=== PATIENT | female | born 1990 | race Caucasian/White ===

== ENCOUNTER → 2018-03-11 16:40 | Outpatient (CLI) | payer OTHER, SELFPAY ==
[2018-03-11 18:01] LABS: Follicle Stimulating Hormone 50.9 mIU/mL; Prolactin 22.1 ng/mL
[2018-03-11 18:02] LABS: Pregnancy, Serum, hCG Quali. NEGATIVE Negative (0-9 Nonpreg)
== END ==
PROVIDERS: Visit Provider Family Medicine
DX: N91.2 Amenorrhea, unspecified (principal)
CPT/HCPCS: 36415; 83001; 84146; 84403; 84703

== ENCOUNTER → 2018-06-11 11:52 | Outpatient (CLI) | payer OTHER, SELFPAY | PROVIDERS: Family Provider Family Medicine; PCP Family Medicine; Referring Provider Obstetrics & Gynecology; Visit Provider Obstetrics & Gynecology | DX: O02.1 Missed abortion (principal) | CPT/HCPCS: 36415; 86850; 86900 ==

== ENCOUNTER → 2019-12-19 | Outpatient (CLI) | payer BC, SELFPAY ==
[2019-12-19 15:12] VITALS: BMI 31.8
[2019-12-26 05:28] LABS: HPV Reflexed? NOT INDICATED
== END | disposition home or self-care (01) ==
LOC: LABSPEC 16:41
PROVIDERS: PCP Family Medicine; Referring Provider Obstetrics & Gynecology; Visit Provider Obstetrics & Gynecology
DX: R87.610 Atypical squamous cells of undetermined significance on cytologic smear of cervix (ASC-US) (principal)
CPT/HCPCS: 88175; G0145

== ENCOUNTER → 2019-12-24 08:07 | Outpatient (CLI) | payer BC, SELFPAY ==
[2019-12-19 15:12] VITALS: BMI 31.8
--- NOTE | 2019-12-24 08:08 | MRI_ITS ---
STUDY: MRI BRAIN WITH AND WITHOUT CONTRAST REASON FOR EXAM: Female, 29 years old. premature ovarian failure, chronic frontal headaches TECHNIQUE: Standardized multiplanar fat and water weighted pulse sequences were obtained. IV 18ml Dotarem was administered for the contrast portion of the examination. COMPARISON: None. FINDINGS: Normal size of the ventricles and extra-axial spaces for the patient''s age. Normal white matter tracts of the supratentorial brain. There is no evidence for recent intracranial ischemia or other cause of cytotoxic edema on diffusion weighted imaging (DWI). Normal T2* images of the brain without demonstrated susceptibility artifact. There is no demonstrated hemosiderin stain. Normal bilateral basal ganglia. Normal thalami. There is no extra-axial fluid accumulation. Normal flow voids within the major intracranial circulation suggesting patency by spin echo criteria. Normal venous enhancement. There is no enhancing intra-axial or extra-axial abnormality. Normal sella turcica, pituitary gland, infundibular stalk, optic chiasm and hypothalamus. Normal tectal plate and pineal gland. Normal midbrain, sundar and medulla. Normal cerebellum. Normal basal cisterns. Normal bilateral temporal bones. Normal bilateral internal auditory canals. No demonstrated orbital abnormality, within the constraints of a routine brain study. Normal visualized paranasal sinuses. Normal calvarium and skull base. Normal visualized soft tissue structures. Normal visualized upper cervical spine. MRI/Brain W/WO Contrast IMPRESSION: No evidence of acute intracranial bleed, mass or ischemia. No evidence of abnormal enhancement. Electronically Signed: Nils Gallo DO at 11:53 EDT , Service support ,
== END ==
PROVIDERS: PCP Family Medicine; Referring Provider Obstetrics & Gynecology; Visit Provider Obstetrics & Gynecology
DX: R51 Headache (principal); E28.39 Other primary ovarian failure
CPT/HCPCS: 70553; A9575

== ENCOUNTER → 2019-12-31 08:57 | Outpatient (CLI) | payer BC, SELFPAY ==
[2019-12-19 15:12] VITALS: BMI 31.8
[2019-12-31 10:30] LABS: Cholesterol 205 mg/dL (200); Glucose 85 mg/dL (74-106); High Density Lipoprotein 47 mg/dL; T4 Free Direct 0.98 ng/dL (0.76-1.46); Thyroid Stim Hormone (TSH) 3.36 uIU/mL (0.358-3.74); Triglycerides 95 mg/dL; Very Low Density Lipoprotein 19 mg/dL (5-40)
[2020-01-02 09:48] LABS: Vitamin D,25 Hydroxy 50.3 ng/mL
== END ==
PROVIDERS: PCP Family Medicine; Referring Provider Obstetrics & Gynecology; Visit Provider Obstetrics & Gynecology
DX: E28.39 Other primary ovarian failure (principal)
CPT/HCPCS: 36415; 80061; 82306; 82947; 84439; 84443

== ENCOUNTER → 2021-02-05 08:51 | Outpatient (CLI) | payer OTHER, SELFPAY ==
[2020-12-20 15:25] VITALS: BMI 31.8
--- NOTE | 2021-02-05 08:57 | BD_ITS ---
STUDY: DUAL ENERGY X-RAY ABSORPTIOMETRY / DXA REASON FOR EXAM: Female, 30 years old. E28.39 -- OTHER PRIMARY OVARIAN FAILURE TECHNIQUE: Bone Mineral Density (BMD) measurements of lumbar spine and bilateral hips were obtained. COMPARISON: None. FINDINGS: Lumbar Spine (L1-L4): g/cm2 (1.058) / T-score (0.1) / Z-score (0.1) Findings are suggestive of normal bone density with a low fracture risk. Left Femur Total: g/cm2 (1.031) / T-score (0.7) / Z-score (0.7) Left Femoral Neck: g/cm2 (0.926) / T-score (0.7) / Z-score (0.7) Right Femur Total: g/cm2 (0.901) / T-score (0.5) / Z-score (0.5) Right Femoral Neck: g/cm2 (1.033) / T-score (0.7) / Z-score (0.8) BD/Dexa Bone Density Study IMPRESSION: The patient is considered normal as outlined below according to World [employer] Organization (WHO) criteria with a low fracture risk. Reference Information: The T-score is the number of standard deviations above or below the standard which is normal for young adults at their peak bone mineral density. The World Health Organization (WHO) interprets the T-scores as follows: Above -1 Normal bone density Between -1 and -2.5 Osteopenia Equal to / or below -2.5 Osteoporosis As a practical clinical guideline, osteopenia may be graded as follows: Mild -1 through -1.5 Moderate -1.6 through -2.0 Severe -2.1 through -2.4 The Z-score is the number of standard deviations above or below age-matched controls. A Z-score of less than -1.5 would be considered abnormal. References: 1. NIH Osteoporosis and Related Bone Diseases www osteo.org 2. International Society for Clinical Densitometry www iscd.org 3. National Osteoporosis Foundation www nof.org Electronically Signed: Ventura Greer MD at 15:39 EDT , Service support ,
== END ==
PROVIDERS: PCP Family Medicine; Referring Provider Obstetrics & Gynecology Reproductive Endocrinology; Visit Provider Obstetrics & Gynecology Reproductive Endocrinology
DX: E28.39 Other primary ovarian failure (principal)
CPT/HCPCS: 77080

== ENCOUNTER → 2022-08-01 | Outpatient (CLI) | payer OTHER, SELFPAY ==
[2022-08-01 17:47] LABS: T4 Free Direct 1.09 ng/dL (0.76-1.46); Thyroid Stim Hormone (TSH) 1.52 uIU/mL (0.358-3.74)
== END | disposition home or self-care (01) ==
LOC: BFHLAB 14:50
PROVIDERS: PCP Family Medicine; Visit Provider Family Medicine
DX: E03.9 Hypothyroidism, unspecified (principal)
CPT/HCPCS: 36415; 84439; 84443

== ENCOUNTER → 2022-08-06 | Outpatient (CLI) | payer OTHER, SELFPAY ==
--- NOTE | 2022-08-06 07:56 | US_ITS ---
STUDY: ULTRASOUND OF THE FEMALE PELVIS - COMPLETE REASON FOR EXAM: Female, 31 years old. AUB LMP: 07/28/2022. TECHNIQUE: Transabdominal and Transvaginal TECHNICAL QUALITY: Adequate. COMPARISON: None. FINDINGS: The uterus is anteverted and is in a midline position. The uterus measures 7.4 cm x 5.4 cm x 3.2 cm. Normal uterine cervix. The endometrium measures 3.2 mm in thickness, and is hyperechoic. There is no demonstrated endometrial mass. There is a 1.1 cm x 0.8 cm x 0.9 cm uterine fibroid. I.U.D. - The patient does not have an I.U.D. The right ovary is visualized. The right ovary measures 2.4 cm x 1 cm x 1 cm. There is no right ovarian cyst or ovarian mass. There is no visualized right adnexal mass or complex lesion. There is normal arterial and normal venous vascularity. The left ovary is visualized. The left ovary measures 2.4 cm x 1.2 cm x 1.2 cm. There is no left ovarian cyst or ovarian mass. There is no visualized left adnexal mass or complex lesion. There is normal arterial and normal venous vascularity. There is no fluid in the cul-de-sac. The pre void volume of the bladder was 461 ml. US/Pelvic (Non ) IMPRESSION: Small uterine fibroid. Electronically Signed: Ventura Greer MD at 13:48 EST ,
== END | disposition home or self-care (01) ==
PROVIDERS: PCP Family Medicine; Visit Provider Nurse Practitioner Women's Health
DX: N93.9 Abnormal uterine and vaginal bleeding, unspecified (principal); E28.8 Other ovarian dysfunction
CPT/HCPCS: 76830; 76856

== ENCOUNTER → 2022-12-29 | Outpatient (CLI) | payer OTHER, SELFPAY ==
[2023-01-02 14:18] LABS: HPV Reflexed? NOT INDICATED
== END | disposition home or self-care (01) ==
LOC: LABSPEC 14:12
PROVIDERS: PCP Family Medicine; Referring Provider Obstetrics & Gynecology; Visit Provider Obstetrics & Gynecology
DX: Z12.4 Encounter for screening for malignant neoplasm of cervix (principal)
CPT/HCPCS: 88175; G0145

== ENCOUNTER → 2023-09-25 | Outpatient (CLI) | payer OTHER, SELFPAY ==
[2023-09-25 08:42] LABS: Cholesterol 194 mg/dL (200); High Density Lipoprotein 50 mg/dL; Thyroid Stim Hormone (TSH) 2.56 uIU/mL (0.358-3.74); Triglycerides 127 mg/dL; Very Low Density Lipoprotein 25 mg/dL (5-40)
== END | disposition home or self-care (01) ==
LOC: LAB 06:55
PROVIDERS: PCP Family Medicine; Referring Provider Family Medicine; Visit Provider Family Medicine
DX: Z00.00 Encounter for general adult medical examination without abnormal findings (principal); E03.9 Hypothyroidism, unspecified
CPT/HCPCS: 36415; 80061; 84443

== ENCOUNTER → 2024-07-22 | Outpatient (CLI) | payer OTHER, SELFPAY ==
[2024-07-22 08:38] LABS: Hematocrit 40.6 % (37-47); Hemoglobin 13.5 g/dL (12.0-15.0); Mean Corp Hgb Conc 33.3 g/dL (32-36); Mean Corpuscular Hgb 29.2 pg (27.0-32.0); Mean Corpuscular Volume 87.7 fL (81-99); Mean Platelet Vol. 12.9 fl (6.2-12.0); Platelet Count 247 K/mm3 (150-450); RBC Distribution Width SD 38.7 fl (35.1-43.9); Red Blood Count 4.63 M/mm3 (4.2-5.4); White Blood Count 6.4 K/mm3 (4.4-11.0)
[2024-07-22 09:26] LABS: Procalcitonin < 0.01 ng/mL (0.00-0.09)
[2024-07-22 09:28] LABS: ALB/GLOB Ratio 0.9 RATIO (0.9-2.4); AST(SGOT) 10 U/L (15-37); Alanine Aminotransfer ALT/SGPT 13 U/L (13-56); Albumin, Serum 3.4 g/dL (3.2-5.0); Alkaline Phosphatase 68 U/L (45-117); Anion Gap 5 (5-15); BUN 13 mg/dL (7-18); CRP 4.84 mg/L (0.0-3.0); Calcium,Total 8.9 mg/dL (8.5-10.1); Chloride 112 mmol/L (98-107); Creatinine, Serum 0.81 mg/dL (0.55-1.02); EST Glomerular Filtration Rate 87 mL/min (>60); Est Glom Filt Rate - Afr Amer 106 mL/min (>60); Follicle Stimulating Hormone 0.8 mIU/mL; Free T3 2.7 pg/mL (2.18-3.98); Globulin 3.7 g/dL (2.2-4.2); Glucose 89 mg/dL (74-106); Luteinizing Hormone < 0.2 mIU/mL; Potassium 3.8 mmol/L (3.5-5.1); Protein, Total 7.1 g/dL (6.4-8.2); Sodium Level 139 mmol/L (136-145); T4 Total, Thyroxin 15.5 ug/dL (4.8-13.9)
[2024-07-27 13:06] LABS: Anti-Mullerian Hormone,Serum < 0.015 ng/mL (.); Insulin Level 18.2 uIU/mL (2.6-24.9); Testosterone, % Free 1.34 % (0.50-2.80); Testosterone, Free 0.11 ng/dL (0.10-0.85); Testosterone, Total 8 ng/dL (8-60)
== END | disposition home or self-care (01) ==
LOC: LAB 07:35
PROVIDERS: PCP Family Medicine; Referring Provider Obstetrics & Gynecology Reproductive Endocrinology; Visit Provider Obstetrics & Gynecology Reproductive Endocrinology
DX: E28.39 Other primary ovarian failure (principal)
CPT/HCPCS: 36415; 80053; 82533; 82627; 83001; 83002; 83516; 83525; 84145; 84402; 84403; 84436; 84443; 84481; 85027; 86140; 82626

== ENCOUNTER → 2024-09-24 | Outpatient (CLI) | payer OTHER, SELFPAY ==
[2024-09-25 10:07] LABS: CRP, High Sensitivity 4.31 mg/L (0.00-3.00)
[2024-09-25 13:07] LABS: Insulin Level 17.7 uIU/mL (2.6-24.9)
== END | disposition home or self-care (01) ==
LOC: LAB 08:55
PROVIDERS: PCP Family Medicine; Referring Provider Obstetrics & Gynecology Reproductive Endocrinology; Visit Provider Obstetrics & Gynecology Reproductive Endocrinology
DX: E88.810 Metabolic syndrome (principal)
CPT/HCPCS: 36415; 82533; 83525; 86141

== ENCOUNTER → 2025-02-11 | Outpatient (CLI) | payer OTHER, SELFPAY ==
--- OUTSIDE RECORDS SUMMARY | 2025-02-11 07:41 | XMS RPT_ITS | CCD ---
Author Organization [facility] Care Team Providers Care Hotel Manager Name Role Phone Unavailable Primary Care Provider Dr. Niru Copeland Primary Care Provider Dr. Niru Kemp Referring Provider Carolina MILLER WOOD FLOUR, MENDEZ Ceja Attending Provider Dr. Niru Kemp Primary Care Provider [phone] Dr. Niru Kemp Referring Provider Dr. Eva Griffith Attending Provider Redd Unger Attending Unavailable Redd Unger Referring Unavailable Niru Kemp Primary Care Unavailable Niru Kemp Primary Care Unavailable Redd Unger Attending Unavailable Redd Unger Referring Unavailable Niru Kemp Primary Care Unavailable Niru Kemp Referring Unavailable Eva Griffith Attending Unavailable Dr. Niru Kemp MD Primary Care Provider [phone] Dr. Redd Unger MD Attending Provider Dr. Redd Unger MD Referring Provider Medications Current Medications Medication Drug Class(es) Dates Sig (Normalized) Sig (Original) acyclovir 200 mg oral capsule (2 sources) Herpesvirus Nucleoside Analog DNA Polymerase Inhibitor, Herpes Simplex Virus Nucleoside Analog DNA Polymerase Inhibitor, Herpes Zoster Virus Nucleoside Analog DNA Polymerase Inhibitor Start: 11-30-2021 acyclovir (ZOVIRAX) capsule 400 mg Start: 11-30-2021 End: 12-10-2021 take 1 tablet by mouth every eight hours acyclovir (ZOVIRAX) 400 MG tablet Take 1 tablet by mouth every 8 (eight) hours for 10 days 30 tablet 0 11/30/2021 12/10/2021 Active Desogestrel-Ethinyl Estradiol (5 sources) Progestin, Estrogen Start: 03-04-2024 Desogestrel-Ethinyl Estradiol (Apri) 0.15-0.03 mg tablet Active 1 {tbl} PO daily March 04, 2024 4:24pm take only active pills discard inactive start new pack immediately Start: 11-23-2023 End: 03-04-2024 Desogestrel-Ethinyl Estradio l (Apri) 0.15-0.03 mg tablet Discontinued 1 {tbl} PO daily November 23, 2023 5:20pm March 04, 2024 4:24pm take only active pills discard inactive start new pack immediately Start: 11-23-2023 End: 11-23-2023 Desogestrel-Ethinyl Estradio l (Apri) 0.15-0.03 mg tablet Discontinued 1 {tbl} PO daily November 23, 2023 4:56pm November 23, 2023 5:20pm take only active pills discard inactive start new pack immediately Start: 01-01-2023 End: 11-23-2023 Desogestrel-Ethinyl Estradio l (Apri) 0.15-0.03 mg tablet Discontinued 1 {tbl} PO daily January 01, 2023 12:00am November 23, 2023 4:57pm take only active pills discard inactive start new pack immediately Start: 01-01-2023 Desogestrel-Et hinyl Estradiol (Apri) 0.15-0.03 mg tablet Active 1 TABLET PO daily January 01, 2023 12:00am take only active pills discard inactive start new pack immediately Multivitamin preparation (4 sources) Start: 12-27-2021 take 1 tablet by mouth once daily Multivitamin Active 1 TABLET PO DAILY December 27, 2021 12:00am Start: 12-27-2021 take 1 tablet by mamadou th once daily Multivitamin Active 1 TABLET PO DAILY December 26, 2021 11:00pm Multivitamin tablet (1 source) Start: 12-27-2021 Multivitamin tablet Active 1 {tbl} PO DAILY Estrellita 24th, 2022 12:00am SUMAtriptan 50 mg oral tablet (5 sources) Serotonin-1b and Serotonin-1d Receptor Agonist Start: 2020 take 1 tablet by mouth once Sumatriptan Succinate (Imitrex) 50 mg tablet Active 50 mg PO ONCE 2020 12:00am valACYclovir 500 mg oral tablet (13 sources) Herpesvirus Nucleoside Analog DNA Polymerase Inhibitor, Herpes Simplex Virus Nucleoside Analog DNA Polymerase Inhibitor, Herpes Zoster Virus Nucleoside Analog DNA Polymerase Inhibitor Start: 12-27-2021 End: 07-28-2024 take 1 tablet by mouth once daily Valacyclovir 500 mg tablet Active 0 .ROUTE .COMPLEX July 28, 2024 5:14pm TAKE 1 TABLET BY MOUTH DAILY Completed/Discontinued Medications Medication Drug Class(es) Dates Sig (Normalized) Sig (Original) amoxicillin 500 mg oral capsule (2 sources) Penicillin-class Antibacterial Start: 05-06-2023 End: 05-16-2023 take 1 capsule by mouth three times daily Amoxicillin 500 mg capsule Discontinued 500 mg PO THREE TIMES A DAY 04 05May 06, 2023 12:00am May 15, 2023 1:00am May 16, 2023 1:26am Norethindrone-E.Es tradiol-Iron (20 sources) Estrogen Start: 01-14-2021 End: 12-27-2021 Norethindrone-E.Es tradiol-Iron (Keri 24 Fe) 1 mg-20 mcg (24)/75 mg (4) tablet Discontinued 1 {tbl} PO DAILY January 14, 2021 3:48pm December 27, 2021 2:13pm Start: 01-14-2021 End: 12-27-2021 take 1 tablet by mouth once daily Norethindrone-E.Estradiol-Iron (Keri 24 Fe) 1 mg-20 mcg (24)/75 mg (4) tablet Discontinued 1 TABLET PO DAILY January 14, 2021 3:48pm December 27, 2021 2:13pm Start: 01-14-2021 End: 12-27-2021 take 1 tablet by mouth once daily Norethindrone-E.Estradiol-Iron (Keri 24 Fe) 1 mg-20 mcg (24)/75 mg (4) tablet Discontinued 1 TABLET PO DAILY January 14, 2021 2:48pm December 27, 2021 1:13pm Start: 10-29-2020 End: 01-14-2021 Norethindrone-E.Estradiol-Ir on (Keri 24 Fe) 1 mg-20 mcg (24)/75 mg (4) tablet Discontinued 1 {tbl} PO DAILY October 29, 2020 12:19pm January 14, 2021 3:48pm Start: 10-29-2020 End: 01-14-2021 take 1 tablet by mouth once daily Norethindrone-E.Estradiol-Iron (Keri 24 Fe) 1 mg-20 mcg (24)/75 mg (4) tablet Discontinued 1 TABLET PO DAILY October 29, 2020 12:19pm January 14, 2021 3:48pm Start: 10-29-2020 End: 01-14-2021 take 1 tablet by mouth once daily Norethindrone-E.Estradiol-Iron (Keri 24 Fe) 1 mg-20 mcg (24)/75 mg (4) tablet Discontinued 1 TABLET PO DAILY October 29, 2020 11:19am January 14, 2021 2:48pm Start: 01-11-2020 End: 10-29-2020 Norethindrone-E.Estradiol-Ir on (Keri 24 Fe) 1 mg-20 mcg (24)/75 mg (4) tablet Discontinued 1 {tbl} PO DAILY January 11, 2020 1:56pm October 29, 2020 12:19pm Start: 01-11-2020 End: 10-29-2020 take 1 tablet by mouth once daily Norethindrone-E.Estradiol-Iron (Keri 24 Fe) 1 mg-20 mcg (24)/75 mg (4) tablet Discontinued 1 TABLET PO DAILY January 11, 2020 1:56pm October 29, 2020 12:19pm Start: 01-11-2020 End: 10-29-2020 take 1 tablet by mouth once daily Norethindrone-E.Estradiol-Iron (Keri 24 Fe) 1 mg-20 mcg (24)/75 mg (4) tablet Discontinued 1 TABLET PO DAILY January 11, 2020 12:56pm October 29, 2020 11:19am Start: 12-19-2019 End: 01-11-2020 Norethindrone-E.Estradiol-Ir on (Keri 24 Fe) 1 mg-20 mcg (24)/75 mg (4) tablet Discontinued 1 {tbl} PO DAILY December 19, 2019 12:00am January 11, 2020 1:56pm Start: 12-19-2019 End: 01-11-2020 take 1 tablet by mouth once daily Norethindrone-E.Estradiol-Iron (Keri 24 Fe) 1 mg-20 mcg (24)/75 mg (4) tablet Discontinued 1 TABLET PO DAILY December 19, 2019 12:00am January 11, 2020 1:56pm Start: 12-19-2019 End: 01-11-2020 take 1 tablet by mouth once daily Norethindrone-E.Estradiol-Iron (Keri 24 Fe) 1 mg-20 mcg (24)/75 mg (4) tablet Discontinued 1 TABLET PO DAILY December 18, 2019 11:00pm January 11, 2020 12:56pm L Norgest/E.Estradiol-E.Estrad (5 sources) Progestin, Estrogen, Progestin-containing Intrauterine Device Start: 02-28-2022 End: 01-01-2023 take 1 tablet by mouth once daily L Norgest/E.Estradiol-E.Estrad (Ashlyna) 0.15 mg-30 mcg (84)/10 mcg (7) tablets,dose pack,3 month Discontinued 1 {tbl} PO DAILY February 28, 2022 12:00am January 01, 2023 12:39pm Start: 02-28-2022 End: 01-01-2023 take 1 tablet by mouth once daily L Norgest/E.Estradiol-E.Estrad (Ashlyna) 0.15 mg-30 mcg (84)/10 mcg (7) tablets,dose pack,3 month Discontinued 1 TABLET PO DAILY February 28, 2022 12:00am January 01, 2023 12:39pm Start: 02-28-2022 take 1 tablet by mamadou th once daily L Norgest/E.Estradiol-E.Estrad (Ashlyna) 0.15 mg-30 mcg (84)/10 mcg (7) tablets,dose pack,3 month Active 1 TABLET PO DAILY February 28, 2022 12:00am Start: 02-28-2022 take 1 tablet by mamadou th once daily L Norgest/E.Estradiol-E.Estrad (Ashlyna) 0.15 mg-30 mcg (84)/10 mcg (7) tablets,dose pack,3 month Active 1 TABLET PO DAILY February 27, 2022 11:00pm ethinyl estradiol 0.03 mg / norethindrone acetate 1.5 mg oral tablet (5 sources) Estrogen Start: 12-27-2021 End: 02-28-2022 take 1 tablet by mouth once daily Norethindrone Ac-Eth Estradiol 1.5-30 mg-mcg tablet Discontinued 1 {tbl} PO DAILY 63 December 27, 2021 12:00am February 28, 2022 9:56pm take only active pills discard inactive start new pack immediately Start: 12-27-2021 End: 02-28-2022 take 1 tablet by mouth once daily Norethindrone Ac-Eth Estradiol Discontinued 1 TABLET PO DAILY 63 December 27, 2021 12:00am February 28, 2022 9:56pm take only active pills discard inactive start new pack immediately levothyroxine sodium 0.075 mg oral tablet (20 sources) l-Thyroxine Start: 12-27-2021 End: 07-08-2022 take 1 tablet by mouth once daily Levothyroxine 75 mcg tablet Discontinued 0 .ROUTE .COMPLEX June 13, 2022 4:47pm July 08, 2022 10:05am TAKE 1 TABLET BY MOUTH DAILY nortriptyline 10 mg oral capsule (5 sources) Tricyclic Antidepressant Start: 2020 End: 12-27-2021 take 1 capsule by mouth once daily Nortriptyline 10 mg capsule Discontinued 10 mg PO DAILY 2020 12:00am December 27, 2021 1:47pm Problems Problem Classification Problem Date Documented Da te Episodic/Chronic Headache; including migraine (5 sources) Chronic headache disorder; Translations: [Chronic headache disorder] 12-19-2019 Episodic Comment on above: MRI of brain ordered , fu with PCP Menopausal disorders (8 sources) Premature ovarian failure; Translations: [Other primary ovarian failure] Onset: 08-15-2024 07-23-2022 Chronic Comment on above: s/p RGI infertility visit, nl genetic workup per patient, nl MRI of brain, on continuous HRT. failed embryo x 1. Considering seeing [facility] or [place] Other endocrine disorders (1 source) Other ovarian dysfunction; Translations: [Other ovarian dysfunction] Onset: 03-05-2024 Chronic Other female genital disorders (5 sources) Abnormal uterine bleeding; Translations: [Abnormal uterine and vaginal bleeding, unspecified] 07-23-2022 Chronic Other female genital disorders (2 sources) Abnormal uterine and vaginal bleeding, unspecified; Translations: [Unspecified disorders of menstruation and other abnormal bleeding from female genital tract] 07-23-2022 Chronic Other nutritional; endocrine; and metabolic disorders (1 source) Metabolic syndrome; Translations: [Metabolic syndrome] Onset: 09-30-2024 Chronic Other upper respiratory infections (2 sources) Acute maxillary sinusitis; Translations: [Acute maxillary sinusitis, unspecified] 05-06-2023 Episodic Thyroid disorders (2 sources) Hypothyroidism; Translations: [Hypothyroidism, unspecified] 05-06-2023 Chronic Viral infection (1 source) Herpetic vulvovaginitis; 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 Results Test Name Value Interpretation Reference Range Facility CRP, High Sensitivity [id number] on 09-25-2024 CRP, HIGH SENS 4.31 mg/L High 0.00-3.00 [facility] Comment on above: Result Comment: Rela tive Risk for Future Cardiovascular Event Low <1.00 Average 1.00 - 3.00 High >3.00 Performed at: [facility] [employer] [facility] [id number] Strip Winder: Snato Laird PhD, Phone: [phone] Performed By: #### L 3100.5170, L803.3000, L501.25990, L3100.5310, L509.7000, L500.4050, L3300.3500, L509.6000, L501.9520, L501.9310, L3300.1500, L501.6710, L100.0500, L3100.5125 #### [facility] [place], [address] Insulin Levelon 09-25-2024 INSULIN,FASTING 17.7 uIU/mL Normal 2.6-24.9 [facility] Comment on above: Result Comment: Perf ormed at: [facility] - [facility] [address] [place], [place] [id number] Strip Winder: Santo Laird PhD, Phone: [phone] Performed By: #### L 3100.5170, L803.3000, L501.39427, L3100.5310, L509.7000, L500.4050, L3300.3500, L509.6000, L501.9520, L501.9310, L3300.1500, L501.6710, L100.0500, L3100.5125 #### [facility] [address] [facility] [place], [place], [id number] C-reactive protein measureme nt by high sensitivity methodOrdered By: Redd Unger on 09-24-2024 C-Reactive Protein High Sensitivity 4.31 mg/L High 0.00-3.00 [facility] Comment on above: Relative Risk for Fu ture Cardiovascular Event Low <1.00 Average 1.00 - 3.00 High >3.00Performed at: - [facility] [address] [id number] Director: Santo Laird PhD, Phone: [phone] Insulin [Mass/Vol]Ordered By : Redd Unger on 09-24-2024 Insulin Level 17.7 uIU/mL 2.6-24.9 [facility] Comment on above: Performed at: [facility] [address] [id number] Director: Santo Laird PhD, Phone: [phone] [id number] 09-24-2024 CORTISOL 21.20 ug/dL High 6.02-18.40 [facility] Comment on above: Performed By: #### L 3100.5170, L803.3000, L501.93063, L3100.5310, L509.7000, L500.4050, L3300.3500, L509.6000, L501.9520, L501.9310, L3300.1500, L501.6710, L100.0500, L3100.5125 #### [facility] [address] [place], [place], [address] No Panel InformationOrdered By: Redd Unger on 09-24-2024 Cortisol AM Sample 21.20 ug/dL High 6.02-18.40 [facility] Antimullerian Hormone, Serum on 07-27-2024 AMH, SERUM < 0.015 Normal . [facility] Comment on above: Order Comment: NN Result Comment: For assays employing antibodies, the possibility exists for interference by heterophile antibodies in the samples.1 1.Prashant Laureano Interferences in Immunoassays - still a threat. Clin. Chem. 2000; 46: 5176-5977. This test was developed and its performance characteristics determined by [facility]. It has not been cleared or approved by the Food and Drug Administration. Reference Range: Females 31 - 35y: 0.66 - 8.75 Median 3.00 AMH concentrations of >= 1.06 ng/mL is correlated with a better response to ovarian stimulation, produced more retrievable oocytes and higher odds of live according to Jeffreyer et al. Fertility and Sterility. 2010: 94:6020-1984. The current AMH test method correlates with the study method with a slope of 0.94. Females at risk of ovarian hyperstimulation syndrome or polycystic ovarian syndrome (PCOS) may exhibit elevated serum AMH concentrations. AMH levels from PCOS patients may be 2 to 5 fold higher than age-appropriate reference interval values. Granulosa cell tumors of the ovary may secrete AMH along with other tumor markers. Elevated AMH is not specific for malignancy, and the assay should not be used exclusively to diagnose or exclude an AMH-secreting ovarian tumor. Performed By: #### L 3100.5170, L803.3000, L501.63512, L3100.5310, L509.7000, L500.4050, L3300.3500, L509.6000, L501.9520, L501.9310, L3300.1500, L501.6710, L100.0500, L3100.5125 #### [facility] [address] [place], [place], [id number] DHEA Sulfateon 07-27-2024 DHEA SULFATE 109.0 ug/dL Normal 84.8-378.0 [facility] Comment on above: Order Comment: NN Performed By: #### L 3100.5170, L803.3000, L501.93543, L3100.5310, L509.7000, L500.4050, L3300.3500, L509.6000, L501.9520, L501.9310, L3300.1500, L501.6710, L100.0500, L3100.5125 #### [facility] [address] [facility] [place], [address] Insulin Levelon 07-27-2024 INSULIN,FASTING 18.2 uIU/mL Normal 2.6-24.9 [facility] Comment on above: Order Comment: NN Result Comment: Perf ormed at: [facility] [id number] Strip Winder: Santo Laird PhD, Phone: [phone] Performed at: [facility] [id number] Strip Winder: Estela Dior MD, Phone: [phone] Performed at: [address] [place] [id number] Strip Winder: Del Santana MD, Phone: [phone] Performed By: #### L 3100.5170, L803.3000, L501.19263, L3100.5310, L509.7000, L500.4050, L3300.3500, L509.6000, L501.9520, L501.9310, L3300.1500, L501.6710, L100.0500, L3100.5125 #### [facility] [address] [facility] [place], [address] Testosterone, Total / Freeon 07-27-2024 TESTOSTER,FREE 0.11 ng/dL Normal 0.10-0.85 [facility] Comment on above: Order Comment: NN Performed By: #### L 3100.5170, L803.3000, L501.96783, L3100.5310, L509.7000, L500.4050, L3300.3500, L509.6000, L501.9520, L501.9310, L3300.1500, L501.6710, L100.0500, L3100.5125 #### [facility] [address] [place], [place], [id number] TESTOSTER,TOTAL 8 ng/dL Normal 8-60 [facility] Comment on above: Order Comment: NN Performed By: #### L 3100.5170, L803.3000, L501.63655, L3100.5310, L509.7000, L500.4050, L3300.3500, L509.6000, L501.9520, L501.9310, L3300.1500, L501.6710, L100.0500, L3100.5125 #### [facility] [address] [facility] [place], [place], [id number] TESTOSTERONE,%F 1.34 Normal 0.50-2.80 [facility] Comment on above: Order Comment: NN Performed By: #### L 3100.5170, L803.3000, L501.87564, L3100.5310, L509.7000, L500.4050, L3300.3500, L509.6000, L501.9520, L501.9310, L3300.1500, L501.6710, L100.0500, L3100.5125 #### [facility] [address] [place], [place], [id number] Albumin to globulin ratioOrd ered By: Redd Unger on 07-22-2024 Albumin/Globulin [Mass ratio] 0.9 {ratio} 0.9-2.4 [facility] Bilirubin, totalOrdered By: Redd Unger on 07-22-2024 Bilirubin [Mass/Vol] 0.30 mg/dL 0.20-1.00 [facility] Comment on above: For patients on eltr ombopag therapy, use of Dimension [place] TBIL is not recommended. Blood urea nitrogen (BUN)/cr eatinine ratioOrdered By: Redd Unger on 07-22-2024 Urea nitrogen/Creatinine [Mass ratio] 16.0 mg/mg 10-20 [facility] C-reactive protein measureme nt by high sensitivity methodOrdered By: Redd Unger on 07-22-2024 C-Reactive Protein Extended Range 4.84 mg/L High 0.0-3.0 [facility] Comment on above: C-Reactive Protein ( CRP) provides useful information for thediagnosis, therapy and monitoring of inflammatory processesand associated diseases. For the evaluation of Relative Riskfor Cardiovascular Disease, a High Sensitivity CRP (HSCRP)should be ordered. CBC-Complete Blood Cnt No Di ffon 07-22-2024 Erythrocyte distribution width (RBC) [Ratio] 12.0 % Normal 11.6-14.6 [facility] Comment on above: Performed By: #### L 3100.5170, L803.3000, L501.56330, L3100.5310, L509.7000, L500.4050, L3300.3500, L509.6000, L501.9520, L501.9310, L3300.1500, L501.6710, L100.0500, L3100.5125 #### [facility] [address] [facility] [place], [address] Hematocrit (Bld) [Volume fraction] 40.6 % Normal 37-47 [facility] Comment on above: Performed By: #### L 3100.5170, L803.3000, L501.60223, L3100.5310, L509.7000, L500.4050, L3300.3500, L509.6000, L501.9520, L501.9310, L3300.1500, L501.6710, L100.0500, L3100.5125 #### [facility] [address] [facility] [place], [address] Hemoglobin (Bld) [Mass/Vol] 13.5 g/dL Normal 12.0-15.0 [facility] Comment on above: Performed By: #### L 3100.5170, L803.3000, L501.08863, L3100.5310, L509.7000, L500.4050, L3300.3500, L509.6000, L501.9520, L501.9310, L3300.1500, L501.6710, L100.0500, L3100.5125 #### [facility] [address] [facility] [place], [address] MCH (RBC) [Entitic mass] 29.2 pg Normal 27.0-32.0 [facility] Comment on above: Performed By: #### L 3100.5170, L803.3000, L501.26575, L3100.5310, L509.7000, L500.4050, L3300.3500, L509.6000, L501.9520, L501.9310, L3300.1500, L501.6710, L100.0500, L3100.5125 #### [facility] [address] [place], [address] MCHC (RBC) [Mass/Vol] 33.3 g/dL Normal 32-36 [facility] Comment on above: Performed By: #### L 3100.5170, L803.3000, L501.82149, L3100.5310, L509.7000, L500.4050, L3300.3500, L509.6000, L501.9520, L501.9310, L3300.1500, L501.6710, L100.0500, L3100.5125 #### [facility] [address] [place], [address] MCV (RBC) [Entitic vol] 87.7 fL Normal 81-99 [facility] Comment on above: Performed By: #### L 3100.5170, L803.3000, L501.76636, L3100.5310, L509.7000, L500.4050, L3300.3500, L509.6000, L501.9520, L501.9310, L3300.1500, L501.6710, L100.0500, L3100.5125 #### [facility] [address] [place], [address] Platelet mean volume (Bld) [Entitic vol] 12.9 fL High 6.2-12.0 [facility] Comment on above: Performed By: #### L 3100.5170, L803.3000, L501.11739, L3100.5310, L509.7000, L500.4050, L3300.3500, L509.6000, L501.9520, L501.9310, L3300.1500, L501.6710, L100.0500, L3100.5125 #### [facility] [address] [place], [address] Platelets (Bld) [#/Vol] 247 10*3/uL Normal 150-450 [facility] Comment on above: Performed By: #### L 3100.5170, L803.3000, L501.97234, L3100.5310, L509.7000, L500.4050, L3300.3500, L509.6000, L501.9520, L501.9310, L3300.1500, L501.6710, L100.0500, L3100.5125 #### [facility] [address] [place], [address] (244) RBC (Bld) [#/Vol] 4.63 10*6/uL Normal 4.2-5.4 [facility] Comment on above: Performed By: #### L 3100.5170, L803.3000, L501.93458, L3100.5310, L509.7000, L500.4050, L3300.3500, L509.6000, L501.9520, L501.9310, L3300.1500, L501.6710, L100.0500, L3100.5125 #### [facility] [address] [place], [address] RDW SD 38.7 fl Normal 35.1-43.9 [facility] Comment on above: Performed By: #### L 3100.5170, L803.3000, L501.11475, L3100.5310, L509.7000, L500.4050, L3300.3500, L509.6000, L501.9520, L501.9310, L3300.1500, L501.6710, L100.0500, L3100.5125 #### [facility] [address] [place], [place], [id number] WBC (Bld) [#/Vol] 6.4 10*3/uL Normal 4.4-11.0 [facility] Comment on above: Performed By: #### L 3100.5170, L803.3000, L501.85832, L3100.5310, L509.7000, L500.4050, L3300.3500, L509.6000, L501.9520, L501.9310, L3300.1500, L501.6710, L100.0500, L3100.5125 #### [facility] [address] [facility] [facility] [place], [address] CORTISOL SERUMon 07-22-2024 CORTISOL 28.80 ug/dL High 3.44-22.45 [facility] Comment on above: Result Comment: Adul t (AM) 5.27 - 22.45 ug/dL Adult (PM) 3.44 - 16.76 ug/dL Performed By: #### L 3100.5170, L803.3000, L501.36220, L3100.5310, L509.7000, L500.4050, L3300.3500, L509.6000, L501.9520, L501.9310, L3300.1500, L501.6710, L100.0500, L3100.5125 #### [facility] [address] [place], [address] CRPon 07-22-2024 C-REACTIVE PROT 4.84 mg/L High 0.0-3.0 [facility] Comment on above: Order Comment: N N Result Comment: C-Re active Protein (CRP) provides useful information for the diagnosis, therapy and monitoring of inflammatory processes and associated diseases. For the evaluation of Relative Risk for Cardiovascular Disease, a High Sensitivity CRP (HSCRP) should be ordered. Performed By: #### L 3100.5170, L803.3000, L501.30449, L3100.5310, L509.7000, L500.4050, L3300.3500, L509.6000, L501.9520, L501.9310, L3300.1500, L501.6710, L100.0500, L3100.5125 #### [facility] [address] [place], [address] Carbon dioxide measurementOr dered By: Redd Unger on 07-22-2024 CO2 [Moles/Vol] 22.0 mmol/L 21.0-32.0 [facility] Chloride measurementOrdered By: Redd Unger on 07-22-2024 Chloride [Moles/Vol] 112 mmol/L High 98-107 [facility] Comprehensive Metabolic Prof ilon 07-22-2024 Albumin [Mass/Vol] 3.4 g/dL Normal 3.2-5.0 [facility] Comment on above: Order Comment: N N Performed By: #### L 3100.5170, L803.3000, L501.73118, L3100.5310, L509.7000, L500.4050, L3300.3500, L509.6000, L501.9520, L501.9310, L3300.1500, L501.6710, L100.0500, L3100.5125 #### [facility] [address] [place], [address] Albumin/Globulin [Mass ratio] 0.9 {ratio} Normal 0.9-2.4 [facility] Comment on above: Order Comment: N N Performed By: #### L 3100.5170, L803.3000, L501.08998, L3100.5310, L509.7000, L500.4050, L3300.3500, L509.6000, L501.9520, L501.9310, L3300.1500, L501.6710, L100.0500, L3100.5125 #### [facility] [address] [facility]. [place], [place], [id number] ALK P 68 U/L Normal 45-117 [facility] Comment on above: Order Comment: N N Performed By: #### L 3100.5170, L803.3000, L501.84180, L3100.5310, L509.7000, L500.4050, L3300.3500, L509.6000, L501.9520, L501.9310, L3300.1500, L501.6710, L100.0500, L3100.5125 #### [facility] [address] [place], [place], [id number] ALT [Catalytic activity/Vol] 13 U/L Normal 13-56 [facility] Comment on above: Order Comment: N N Performed By: #### L 3100.5170, L803.3000, L501.29491, L3100.5310, L509.7000, L500.4050, L3300.3500, L509.6000, L501.9520, L501.9310, L3300.1500, L501.6710, L100.0500, L3100.5125 #### [facility] [address] [place], [place], [id number] AST [Catalytic activity/Vol] 10 U/L Low 15-37 [facility] Comment on above: Order Comment: N N Performed By: #### L 3100.5170, L803.3000, L501.20437, L3100.5310, L509.7000, L500.4050, L3300.3500, L509.6000, L501.9520, L501.9310, L3300.1500, L501.6710, L100.0500, L3100.5125 #### [facility] [address] [place], [place], [id number] Bilirubin [Mass/Vol] 0.30 mg/dL Normal 0.20-1.00 [facility] Comment on above: Order Comment: N N Result Comment: For patients on eltrombopag therapy, use of Dimension [place] TBIL is not recommended. Performed By: #### L 3100.5170, L803.3000, L501.46495, L3100.5310, L509.7000, L500.4050, L3300.3500, L509.6000, L501.9520, L501.9310, L3300.1500, L501.6710, L100.0500, L3100.5125 #### [facility] [address] [place], [place], [id number] BUN/CRE 16.0 RATIO Normal 10-20 [facility] Comment on above: Order Comment: N N Performed By: #### L 3100.5170, L803.3000, L501.99574, L3100.5310, L509.7000, L500.4050, L3300.3500, L509.6000, L501.9520, L501.9310, L3300.1500, L501.6710, L100.0500, L3100.5125 #### [facility] [address] [place], [place], [id number] CA,Total 8.9 mg/dL Normal 8.5-10.1 [facility] Comment on above: Order Comment: N N Performed By: #### L 3100.5170, L803.3000, L501.51026, L3100.5310, L509.7000, L500.4050, L3300.3500, L509.6000, L501.9520, L501.9310, L3300.1500, L501.6710, L100.0500, L3100.5125 #### [facility] [address] [place], [address] Chloride [Moles/Vol] 112 mmol/L High 98-107 [facility] Comment on above: Order Comment: N N Performed By: #### L 3100.5170, L803.3000, L501.83542, L3100.5310, L509.7000, L500.4050, L3300.3500, L509.6000, L501.9520, L501.9310, L3300.1500, L501.6710, L100.0500, L3100.5125 #### [facility] [address] [place], [address] (292) CO2 [Moles/Vol] 22.0 mmol/L Normal 21.0-32.0 [facility] Comment on above: Order Comment: N N Performed By: #### L 3100.5170, L803.3000, L501.84931, L3100.5310, L509.7000, L500.4050, L3300.3500, L509.6000, L501.9520, L501.9310, L3300.1500, L501.6710, L100.0500, L3100.5125 #### [facility] [address] [place], [address] Creatinine [Mass/Vol] 0.81 mg/dL Normal 0.55-1.02 [facility] Comment on above: Order Comment: N N Result Comment: The validity of the calculated GFR GFRAA in patients over 70 years has not been determined. Clinical correlation is essential. Performed By: #### L 3100.5170, L803.3000, L501.56652, L3100.5310, L509.7000, L500.4050, L3300.3500, L509.6000, L501.9520, L501.9310, L3300.1500, L501.6710, L100.0500, L3100.5125 #### [facility] [address] [place], [address] (985) EST GFR - AA 106 mL/min Normal >60 [facility] Comment on above: Order Comment: N N Result Comment: Afri can Ethiopian GFR Calc Performed By: #### L 3100.5170, L803.3000, L501.05207, L3100.5310, L509.7000, L500.4050, L3300.3500, L509.6000, L501.9520, L501.9310, L3300.1500, L501.6710, L100.0500, L3100.5125 #### [facility] [address] [place], [place], [id number] (502) GAP 5 Normal 5-15 [facility] Comment on above: Order Comment: N N Performed By: #### L 3100.5170, L803.3000, L501.61343, L3100.5310, L509.7000, L500.4050, L3300.3500, L509.6000, L501.9520, L501.9310, L3300.1500, L501.6710, L100.0500, L3100.5125 #### [facility] [address] [place], [place], [phone] GFR/1.73 sq M.predicted among non-blacks MDRD (S/P/Bld) [Vol rate/Area] 87 mL/min/{1.73_m2} Normal >60 [facility] Comment on above: Order Comment: N N Result Comment: Non- GFR Calc Performed By: #### L 3100.5170, L803.3000, L501.05620, L3100.5310, L509.7000, L500.4050, L3300.3500, L509.6000, L501.9520, L501.9310, L3300.1500, L501.6710, L100.0500, L3100.5125 #### [facility] [address] [place], [place], [phone] (541) Globulin (S) [Mass/Vol] 3.7 g/dL Normal 2.2-4.2 [facility] Comment on above: Order Comment: N N Performed By: #### L 3100.5170, L803.3000, L501.94277, L3100.5310, L509.7000, L500.4050, L3300.3500, L509.6000, L501.9520, L501.9310, L3300.1500, L501.6710, L100.0500, L3100.5125 #### [facility] [address] [place], [address] Glucose [Mass/Vol] 89 mg/dL Normal 74-106 [facility] Comment on above: Order Comment: N N Performed By: #### L 3100.5170, L803.3000, L501.48522, L3100.5310, L509.7000, L500.4050, L3300.3500, L509.6000, L501.9520, L501.9310, L3300.1500, L501.6710, L100.0500, L3100.5125 #### [facility] [address] [place], [address] Potassium [Moles/Vol] 3.8 mmol/L Normal 3.5-5.1 [facility] Comment on above: Order Comment: N N Performed By: #### L 3100.5170, L803.3000, L501.62278, L3100.5310, L509.7000, L500.4050, L3300.3500, L509.6000, L501.9520, L501.9310, L3300.1500, L501.6710, L100.0500, L3100.5125 #### [facility] [address] [place], [address] Sodium [Moles/Vol] 139 mmol/L Normal 136-145 [facility] Comment on above: Order Comment: N N Performed By: #### L 3100.5170, L803.3000, L501.85228, L3100.5310, L509.7000, L500.4050, L3300.3500, L509.6000, L501.9520, L501.9310, L3300.1500, L501.6710, L100.0500, L3100.5125 #### [facility] [address] [place], [place], [phone] (674) T PROT 7.1 g/dL Normal 6.4-8.2 [facility] Comment on above: Order Comment: N N Performed By: #### L 3100.5170, L803.3000, L501.15870, L3100.5310, L509.7000, L500.4050, L3300.3500, L509.6000, L501.9520, L501.9310, L3300.1500, L501.6710, L100.0500, L3100.5125 #### [facility] [address] [facility]. [place], [place], [id number] Urea nitrogen [Mass/Vol] 13 mg/dL Normal 7-18 [facility] Comment on above: Order Comment: N N Performed By: #### L 3100.5170, L803.3000, L501.70505, L3100.5310, L509.7000, L500.4050, L3300.3500, L509.6000, L501.9520, L501.9310, L3300.1500, L501.6710, L100.0500, L3100.5125 #### [facility] [address] [facility]. [place], [place], [id number] Cortisol [Mass/Vol]Ordered B y: Redd Unger on 07-22-2024 Cortisol 28.80 ug/dL High 3.44-22.45 [facility] Comment on above: Adult (AM) 5.27 - 22 .45 ug/dL Adult (PM) 3.44 - 16.76 ug/dL Dehydroepiandrosterone sulfa te (DHEA-S) measurementOrdered By: Redd Unger on 07-22-2024 Dehydroepiandrosterone Sulfate 109.0 ug/dL 84.8-378.0 [facility] Erythrocyte distribution wid th ratioOrdered By: Redd Unger on 07-22-2024 Erythrocyte distribution width (RBC) [Ratio] 12.0 % 11.6-14.6 [facility] Erythrocyte distribution wid th standard deviationOrdered By: Redd Unger on 07-22-2024 Erythrocyte distribution width (RBC) [Entitic vol] 38.7 fL 35.1-43.9 [facility] Estimated glomerular filtrat ion rate (GFR) AmericanOrdered By: Redd Unger on 07-22-2024 Estimated GFR (MDRD) Amer 106 mL/min >60 [facility] Comment on above: GFR Calc Flecainide [Mass/Vol]Ordered By: Redd Unger on 07-22-2024 Anti-Mullerian Hormone < 0.015 ng/mL . [facility] Comment on above: For assays employing antibodies, the possibility exists forinterference by heterophile antibodies in the samples.11.Prashant Laureano Interferences in Immunoassays - still a threat. Clin. Chem. 2000; 46: 2998-0716.This test was developed and its performance characteristicsdetermined by [facility]. It has not been cleared or approvedby the Food and Drug Administration.Reference Range:Females 31 - 35y: 0.66 - 8.75Median 3.00AMH concentrations of >= 1.06 ng/mL is correlated with abetter response to ovarian stimulation, produced moreretrievable oocytes and higher odds of live accordingto Chaitanya et al. Fertility and Sterility. 2010:94:1402-8447. The current AMH test method correlates withthe study method with a slope of 0.94.Females at risk of ovarian hyperstimulation syndrome orpolycystic ovarian syndrome (PCOS) may exhibit elevatedserum AMH concentrations. AMH levels from PCOS patientsmay be 2 to 5 fold higher than age-appropriate referenceinterval values.Granulosa cell tumors of the ovary may secrete AMH alongwith other tumor markers. Elevated AMH is not specific formalignancy, and the assay should not be used exclusively todiagnose or exclude an AMH-secreting ovarian tumor. Follicle Stimulating Hormone on 07-22-2024 FSH 0.8 mIU/mL Normal [facility] Comment on above: Order Comment: N N Result Comment: NORMAL REFERENCE RANGES FEMALE FOLLICULAR 2.3 - 12.6 mIU/mL MID-CYCLE PEAK 5.2 - 17.5 mIU/mL LUTEAL 1.7 - 12.9 mIU/mL POST-MENOPAUSAL ON MHT 5.9 - 72.8 mIU/mL NOT ON MHT 12.7 - 132.2 mlU/mL MALE 0.7 - 10.8 mIU/mL Performed By: #### L 3100.5170, L803.3000, L501.85675, L3100.5310, L509.7000, L500.4050, L3300.3500, L509.6000, L501.9520, L501.9310, L3300.1500, L501.6710, L100.0500, L3100.5125 #### [facility] [address] [place], [place], [id number] Follicle stimulating hormone (FSH) levelOrdered By: Redd Unger on 07-22-2024 Follicle Stimulating Hormone 0.8 mIU/mL [facility] Comment on above: NORMAL REFERENCE RAN GES FEMALE FOLLICULAR 2.3 - 12.6 mIU/mL MID-CYCLE PEAK 5.2 - 17.5 mIU/mL LUTEAL 1.7 - 12.9 mIU/mL POST-MENOPAUSAL ON MHT 5.9 - 72.8 mIU/mL NOT ON MHT 12.7 - 132.2 mlU/mL MALE 0.7 - 10.8 mIU/mL Free T3on 07-22-2024 Free T3 [Mass/Vol] 2.7 pg/mL Normal 2.18-3.98 [facility] Comment on above: Order Comment: N N Performed By: #### L 3100.5170, L803.3000, L501.91237, L3100.5310, L509.7000, L500.4050, L3300.3500, L509.6000, L501.9520, L501.9310, L3300.1500, L501.6710, L100.0500, L3100.5125 #### [facility] [address] [place], [address] Free Q1Dqzkvry By: Redd north on 07-22-2024 Free Triiodothyronine (T3) pg/dL 2.7 pg/mL 2.18-3.98 [facility] Glomerular filtration rate ( GFR) estimationOrdered By: Redd Unger on 07-22-2024 Estimated GFR (MDRD) Non-Af Amer 87 mL/min >60 [facility] Comment on above: Non- GFR Calc Glucose measurementOrdered B y: Redd Unger on 07-22-2024 Glucose [Mass/Vol] 89 mg/dL 74-106 [facility] Hematocrit Auto (Bld) [Volum e fraction]Ordered By: Redd Unger on 07-22-2024 Hematocrit (Bld) [Volume fraction] 40.6 % 37-47 [facility] Hemoglobin measurementOrdere d By: Redd Unger on 07-22-2024 Hemoglobin (Bld) [Mass/Vol] 13.5 g/dL 12.0-15.0 [facility] Insulin [Mass/Vol]Ordered By : Redd Unger on 07-22-2024 Insulin Level 18.2 uIU/mL 2.6-24.9 [facility] Comment on above: Performed at: CB - [address] [id number] Director: Santo Laird PhD, Phone: [phone] at: BN - [facility] [address] [id number] Director: Estela Dior MD, Phone: [phone] at: ES - [facility] [address] [id number] Director: Del Santana MD, Phone: [phone] Laboratory - Chemistry and C hemistry - challengeOrdered By: Redd Unger on 07-22-2024 AST [Catalytic activity/Vol] 10 U/L Low 15-37 [facility] Luteinizing Hormoneon 2024 LH < 0.2 Normal [facility] Comment on above: Order Comment: N N Result Comment: NORMAL REFERENCE RANGES FEMALE FOLLICULAR 1.9 - 26.2 mIU/mL MID-CYCLE PEAK 22.8 - 76.1 mIU/mL LUTEAL 0.6 - 16.6 mIU/mL POST-MENOPAUSAL ON MHT 1.1 - 52.4 mIU/mL NOT ON MHT 8.6 - 61.8 mIU/mL MALE 1.2 - 10.6 mIU/mL Performed By: #### L 3100.5170, L803.3000, L501.37093, L3100.5310, L509.7000, L500.4050, L3300.3500, L509.6000, L501.9520, L501.9310, L3300.1500, L501.6710, L100.0500, L3100.5125 #### [facility] [address] [place], [place], [address] Luteinizing hormone measurem entOrdered By: Redd Unger on 07-22-2024 Luteinizing Hormone < 0.2 mIU/mL [facility] Comment on above: NORMAL REFERENCE RAN GES FEMALE FOLLICULAR 1.9 - 26.2 mIU/mL MID-CYCLE PEAK 22.8 - 76.1 mIU/mL LUTEAL 0.6 - 16.6 mIU/mL POST-MENOPAUSAL ON MHT 1.1 - 52.4 mIU/mL NOT ON MHT 8.6 - 61.8 mIU/mL MALE 1.2 - 10.6 mIU/mL MCV (mean corpuscular volume ) determinationOrdered By: Redd Unger on 07-22-2024 MCV (RBC) [Entitic vol] 87.7 fL 81-99 [facility] Mean corpuscular hemoglobin (MCH) determinationOrdered By: Redd Unger on 07-22-2024 MCH (RBC) [Entitic mass] 29.2 pg 27.0-32.0 [facility] Mean corpuscular hemoglobin concentration (MCHC) determinationOrdered By: Redd Unger on 07-22-2024 MCHC (RBC) [Mass/Vol] 33.3 g/dL 32-36 [facility] Mean platelet volume determi nationOrdered By: Redd Unger on 07-22-2024 Platelet mean volume (Bld) [Entitic vol] 12.9 fL High 6.2-12.0 [facility] Platelet countOrdered By: St toni Unger on 07-22-2024 Platelets (Bld) [#/Vol] 247 10*3/uL 150-450 [facility] Potassium measurementOrdered By: Redd Unger on 07-22-2024 Potassium [Moles/Vol] 3.8 mmol/L 3.5-5.1 [facility] Procalcitoninon 07-22-2024 Procalcitonin < 0.01 Normal 0.00-0.09 [facility] Comment on above: Result Comment: A procalcitonin (PCT) level above 2.0 ng/mL on the first day of ICU admission is associated with a high risk for progression to severe sepsis and/or septic shock. A PCT level below 0.5 ng/mL on the first day of ICU admission is associated with a low risk for progression to severe and/or septic shock. Note: Concentrations <0.5 ng/mL do not exclude an infection on account of localized infections (without systemic signs) which can be associated with such low concentrations, or a systemic infection in its initial stages (<6 hours). Furthermore, increased procalcitonin can occur without infection. PCT concentrations between 0.5 and 2.0 ng/mL should be interpreted taking into account the patient's history. It is recommended to retest PCT within 6-24 hours if any concentrations <2 ng/mL are obtained. Performed By: #### L 3100.5170, L803.3000, L501.15912, L3100.5310, L509.7000, L500.4050, L3300.3500, L509.6000, L501.9520, L501.9310, L3300.1500, L501.6710, L100.0500, L3100.5125 #### [facility] [address] [place], [address] Procalcitonin [Mass/Vol]Orde red By: Redd Unger on 07-22-2024 Procalcitonin < 0.01 ng/mL 0.00-0.09 [facility] Comment on above: A procalcitonin (PCT ) level above 2.0 ng/mL on the first day of ICU admission is associated with a high risk for progression to severe sepsis and/or septic shock. A PCT level below 0.5 ng/mL on the first day of ICU admission is associated with a low risk for progression to severe and/or septic shock. Note: Concentrations <0.5 ng/mL do not exclude an infection on account of localized infections (without systemic signs) which can be associated with such low concentrations, or a systemic infection in its initial stages (<6 hours). Furthermore, increased procalcitonin can occur without infection. PCT concentrations between 0.5 and 2.0 ng/mL should be interpreted taking into account the patient's history. It is recommended to retest PCT within 6-24 hours if any concentrations <2 ng/mL are obtained. RBC Auto (Bld) [#/Vol]Ordere d By: Redd Unger on 07-22-2024 RBC (Bld) [#/Vol] 4.63 10*6/uL 4.2-5.4 [facility] Serum anion gap measurementO rdered By: Redd Unger 07-22-2024 Anion gap [Moles/Vol] 5 mmol/L 5-15 [facility] Serum globulin measurementOr dered By: Redd Unger 07-22-2024 Globulin (S) [Mass/Vol] 3.7 g/dL 2.2-4.2 [facility] Serum or plasma alanine tatum otransferase (ALT) measurementOrdered By: Redd Unger 07-22-2024 ALT [Catalytic activity/Vol] 13 U/L 13-56 [facility] Serum or plasma albumin shelly urement (mass/volume)Ordered By: Redd Unger 07-22-2024 Albumin [Mass/Vol] 3.4 g/dL 3.2-5.0 [facility] Serum or plasma alkaline norma sphatase measurementOrdered By: Redd Unger 07-22-2024 ALP [Catalytic activity/Vol] 68 U/L 45-117 [facility] Serum or plasma calcium shelly urement (mass/volume)Ordered By: Redd Unger 07-22-2024 Calcium [Mass/Vol] 8.9 mg/dL 8.5-10.1 [facility] Serum or plasma creatinine m easurement (mass/volume)Ordered By: Redd Unger on 07-22-2024 Creatinine [Mass/Vol] 0.81 mg/dL 0.55-1.02 [facility] Comment on above: The validity of the calculated GFR & GFRAA in patients over 70 years has not been determined. Clinical correlation is essential. Serum or plasma thyroxine (T 4) measurement (mass/volume)Ordered By: Redd Unger on 07-22-2024 T4 [Mass/Vol] 15.5 ug/dL High 4.8-13.9 [facility] Serum or plasma urea nitroge n measurement (mass/volume)Ordered By: Redd Unger on 07-22-2024 Urea nitrogen [Mass/Vol] 13 mg/dL 7-18 [facility] Sodium levelOrdered By: Jian Unger on 07-22-2024 Sodium [Moles/Vol] 139 mmol/L 136-145 [facility] T4 Total, Thyroxinon 025 T4 [Mass/Vol] 15.5 ug/dL High 4.8-13.9 [facility] Comment on above: Order Comment: N N Performed By: #### L 3100.5170, L803.3000, L501.77577, L3100.5310, L509.7000, L500.4050, L3300.3500, L509.6000, L501.9520, L501.9310, L3300.1500, L501.6710, L100.0500, L3100.5125 #### [facility] [address] [place], [place], [id number] TSH QnOrdered By: Redd dickson on 07-22-2024 Thyroid Stimulating Hormone (TSH) 2.510 uIU/mL 0.358-3.740 [facility] Testosterone Free [Mass/Vol] Ordered By: Redd Unger on 07-22-2024 Free Testosterone 0.11 ng/dL 0.10-0.85 [facility] Testosterone Free/Testostero ne.total [Mass fraction]Ordered By: Redd Unger on 07-22-2024 Percent Free Testosterone 1.34 % 0.50-2.80 [facility] Testosterone, totalOrdered B y: Redd Unger on 07-22-2024 Testosterone [Mass/Vol] 8 ng/dL 8-60 [facility] Thyroid Stim Hormone (TSH)on 07-22-2024 TSH 2.510 uIU/mL Normal 0.358-3.740 [facility] Comment on above: Order Comment: N N Performed By: #### L 3100.5170, L803.3000, L501.97671, L3100.5310, L509.7000, L500.4050, L3300.3500, L509.6000, L501.9520, L501.9310, L3300.1500, L501.6710, L100.0500, L3100.5125 #### [facility] [address] [place], [place], [address] Total proteinOrdered By: Lico Unger on 07-22-2024 Protein [Mass/Vol] 7.1 g/dL 6.4-8.2 [facility] White blood cell (WBC) count Ordered By: Redd Unger on 07-22-2024 WBC (Bld) [#/Vol] 6.4 10*3/uL 4.4-11.0 [facility] Communications Technician Office Visit Reporton 03-04-2024 Communications Technician Office Visit Report [facility]'[address], [address] [place] [address] OFFICE VISIT Date of Service: 03/04/24 MR#: [id number] Acct: [id number] Name: AVELINO ANTON Rep #: [id number] : 1990 Provider: Dr. 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 Is patient in pain?: No Feel stressed/tense/nervous/anx ious/difficulty sleeping: not at all Allergies No Known Allergies Allergy (Verified 03/04/24 16:10) Medications ???Medication ???Instructions ???Recorded ???Confirmed ???Type sumatriptan succinate 50 mg tablet 50 mg PO ONCE 12/20/20 03/04/24 History (Imitrex) multivitamin 1 tab PO DAILY 12/27/21 03/04/24 History levothyroxine 75 mcg tablet See Rx Instructions .Route 07/08/22 03/04/24 Rx .COMPLEX #30 tabs valacyclovir 500 mg tablet See Rx Instructions .Route 06/22/23 03/04/24 Rx .COMPLEX #30 tabs desogestrel 0.15 mg-ethinyl 1 tab PO QDAY #84 tabs 03/04/24 03/04/24 Rx estradiol 0.03 mg tablet (Apri) Is last menstrual period known: Yes Last Menstrual Period: 02/12/24 Post menopausal: No Patient : No : No [facility] Medical History (Updated 03/04/24 @ 16:[address] Eva Griffith MD) Acute maxillary sinusitis, unspecified Hypothyroidism History of IBS GERD (gastroesophageal reflux disease) Family History Mother Thyroid disorder Grandmother Diabetes Breast cancer FH: mental illness Grandfather Cancer throat and lung Multiple sclerosis Father Myocardial infarction Social History (Updated 03/04/24 @ 16:14 by Brenna Victor) adopted: No household members: spouse housing: house number of children: 0 service: No current occupational status: employed current occupation: [employer] current occupational exposures/hazards: No pets and animals: Yes (4 dogs) pets and animals: dog(s) leisure activities: exercise history of recent travel: No sexually active: Yes Smoking Status: Never smoker alcohol intake: current alcohol intake frequency: holidays/special occasions only substance use type: does not use caffeine: Yes eating out: 1-3 times/week what type of physical activity do you participate in: walking and yoga frequency: 5-6 times per week seatbelt use: always do you feel safe at home: Yes additional social history: Aly- Patient works at [employer] History 1 Elective abortions Hx Para 0 Spontaneous abortions Hx # Term Pregnancies Ectopic pregnancies Hx # Pregnancies Multiple births # of living children Past Pregnancies Del. Date Name GA/Weeks Outcome Route Bth Weight Infant Gen Labor Lgth Anesthesia Del Joseatcece Provider FOB Unknown 2017 SAB at 8w HPI Encounter for routine gynecological examination Details: AVELINO ANTON is a 33 year old who presents for annual exam. Last PAP: 12/2022 History of abnormal PAP: no Other preventative health care screenings: Dr. Kemp - thyroid levels done in July of this year Female Reproductive History Last Menstrual Period: 02/12/24 Cycle Length: >35 Bleeding Duration: 5 Questions: metorrhagia: Yes (continuous ocp), sexually active: Yes, dyspareunia: No and PCB: No Menopausal Symptoms: No hot flashes, No night sweats, No weight change, No mood changes, No difficulty concentrating, No sleep problems and No change in libido ROS Const Constitutional: Reports as per HPI; Denies fatigue, increased appetite, poor appetite, night sweats, weight gain or weight loss Cardio Card: Denies chest pain Resp Resp: Denies cough or dyspnea GI GI: Reports as per HPI; Denies abdominal pain, bloating, constipation, nausea or vomiting : Reports as per HPI and other; Denies difficulty voiding, dysuria, hematuria, hot flashes, nipple discharge, pelvic pain, prolapse symptoms, urinary frequency, urinary incontinence, urinary urgency, vaginal discharge, vaginal dryness, vaginal odor or vaginal pruritus Skin Skin/Breast: Denies changing lesions, breast mass, breast pain, breast skin changes or nipple discharge Psych Psych: Denies anxiety, change in libido, depression or difficulty concentrating Exam Const General: cooperative, healthy appearing, comfortable, no acute distress, well developed and well groomed HENNM Head: normal to inspection and normocephal (more content not included)... Normal [facility] Basophil percentageOrdered B y: Niru Kemp on 09-25-2023 Cholesterol [Mass/Vol] 194 mg/dL <200 [facility] Comment on above: <200 mg/dL Desirable 200-240 mg/dL Borderline >240 mg/dL High Risk Triglyceride [Mass/Vol] 127 mg/dL <199 [facility] Comment on above: The drugs N-Acetylcy steine and Metamizole may falsely depress this assay.Serum Triglycerides Reference Interval Normal <150 mg/dL Borderline high 150 - 199 mg/dL High 200 - 499 mg/dL Very High > or = 500 mg/dL Laboratory - Chemistry and C hemistry - challengeOrdered By: Niru Kemp on 09-25-2023 Cholesterol in HDL [Mass/Vol] 50 mg/dL >40 [facility] Comment on above: The drugs N-Acetylcy steine and Metamizole may falsely depress this assay. Reference Range HDL <40 mg/dL Low HDL Cholesterol HDL >or= 60 mg/dL High HDL Cholesterol Cholesterol in LDL [Mass/Vol] 119 mg/dL 0-130 [facility] No Panel InformationOrdered By: Niru Kemp on 09-25-2023 VLDL Cholesterol 25 mg/dL 5-40 [facility] Serum or plasma thyroid stim ulating hormone (TSH) measurement (units/volume)Ordered By: Niru Kemp on 09-25-2023 TSH Qn 2.56 uIU/mL 0.358-3.74 [facility] Laboratory - Chemistry and C hemistry - challengeOrdered By: Dr. Kemp on 08-01-2022 Free T4 [Mass/Vol] 1.09 ng/dL 0.76-1.46 [facility] No Panel InformationOrdered By: Dr. Kemp on 08-01-2022 Thyroid Stimulating Hormone (TSH) 1.52 uIU/mL 0.358-3.74 [facility] CNPNon 07-24-2021 CARLOS EDUARDON Telephone (HARIS) -- AVELINO ANTON ([id number]) 1990 F Date Time Provider Department 07/24/21 MARY SORENSEN During your visit today, we recorded the following information about you: Mary Sorensen PA-C 07/24/2021 7:17 PM Signed Please call the patient and inform them that- Please be aware that your COVID-19 and influenza tests are negative, which is great news. Please continue the plan of care as discussed at your clinic visit. Follow up with your primary care physician for any new or persisting fever or worsening or changing symptoms. Please refrain from work/school and isolate yourself until - -At least 24 hours have passed since last fever without the use of fever-reducing medications Please wear a mask when out in public. BILLIE Francisco LPN 07/26/2021 11:12 AM Signed Called patient with results and plan of care per Provider. Patient expressed understanding. She stated I'm feeling a lot better. Carmella Fernandez LPN Allergies As of Date: 07/24/2021 (No Known Allergies) Date Reviewed: 07/23/2021 Reviewed by: Latanya Matute APRN.SUPPORT ANALYST - Fully Assessed Reason for Visit: Results [95] Prescriptions as of 07/26/2021 - Norethin Ander-Eth Estrad-FE (LOESTRIN FE 07/25) 1 mg-20 mcg (21)/75 mg (7) per tablet Take 1 tablet by mouth once daily. active tablets only - fluticasone (FLONASE) 50 mcg/actuation nasal spray Use 2 Sprays in each nostril once daily. Rinse mouth after use. - benzonatate (TESSALON PERLE) 100 mg capsule Take 2 capsules by mouth three times daily as needed. Problem List As Of Date 07/24/2021 Noted Resolved GERD (gastroesophageal reflux disease) [K21.9] 10/08/2011 Contraception [VDX1725] 10/08/2011 Spotting in [O26.859] 06/03/2018 Encounter Status:Closed by CARMELLA FERNANDEZ LPN on 07/26/21 [facility] [place] 07-23-2021 CNOV Office Visit ([place] ) -- AVELINO ANTON ([id number]) 1990 F Date Time Provider Department 07/23/21 10:50 AM LATANYA MATUTE During your visit today, we recorded the following information about you: Temperature Pulse Respiration Blood pressure 98.5 degrees 94/minute 16/minute 111/75 Weight 95.7 kg Latanya Matute APRN.SUPPORT ANALYST 07/23/2021 11:29 AM Signed This note was created using Budgeriter. Subjective Avelino Anton is a 30 year old female. HPI by patient: Avelino is a 30 yo female presenting to the office with the complaint of head congestion and sore throat. Started approximately 07/22 Associated symptoms include nasal congestion, sinus pressure, ear pressure, sore throat. Denies SOB, nausea or diarrhea Vaccinated for influenza: Yes Covid Immunization Dates COVID-19 VACCINE (3 - Booster for Pfizer series) Next due on 09/19/2021 04/21/2021 Imm Admin: COVID-19 vaccine, age 12+ yr (PFIZER-BIONTECH - PURPLE TOP) 03/30/2021 Imm Admin: COVID-19 vaccine, age 12+ yr (PFIZER-BIONTECH - PURPLE TOP) Personal history of Covid: Yes Flu/RSV contacts: No Strep contacts: No Sick contacts: Yes Covid + contacts: unknown Travel in the last 14 days: No Smoking history/second hand smoke: No OTC Benadryl and Dayquil No antibiotic use in the last 30 days. ALLERGIES No Known Allergies Family History Reviewed Including Cardiac Diseases, Psychiatric Diseases, AND Substance Abuse Problem: Thyroid Relation: Mother Age of Onset: (Not Specified) Problem: No Known Problems Relation: Father Age of Onset: (Not Specified) Problem: other (Liver Issues) Relation: Sister Age of Onset: (Not Specified) Problem: No Known Problems Relation: Brother Age of Onset: (Not Specified) Problem: Diabetes Relation: Maternal Grandmother Age of Onset: (Not Specified) Problem: Breast Cancer Relation: Maternal Grandmother Age of Onset: (Not Specified) Problem: Cancer Relation: Maternal Grandfather Age of Onset: (Not Specified) Comment: Throat and Lung Problem: Mental illness Relation: Paternal Grandmother Age of Onset: (Not Specified) Problem: other (multiple sclerosis) Relation: Paternal Grandfather Age of Onset: (Not Specified) Social History Tobacco Use Smoking status: Never Smoker Smokeless tobacco: Never Used Alcohol use: No Drug use: No Review of Systems Constitutional: Negative. HENT: Positive for congestion, ear pain, postnasal drip, sinus pressure, sinus pain and sore throat. Eyes: Negative. Respiratory: Negative. Cardiovascular: Negative. Gastrointestinal: Negative. Objective BP 111/75 Pulse 94 Temp 36.9 ?C (98.5 ?F) (Oral) Resp 16 Wt 95.7 kg (211 lb) LMP 08/14/2018 SpO2 99% BMI 33.05 kg/m? Physical Exam Constitutional: Appearance: Normal appearance. HENT: Head: Normocephalic. Right Ear: Tenderness present. A middle ear effusion is present. Left Ear: Tympanic membrane normal. Nose: Congestion present. Mouth/Throat: Mouth: Mucous membranes are moist. Pharynx: Posterior oropharyngeal erythema present. Eyes: Conjunctiva/sclera: Conjunctivae normal. Pupils: Pupils are equal, round, and reactive to light. Cardiovascular: Rate and Rhythm: Normal rate and regular rhythm. Pulses: Normal pulses. Pulmonary: Effort: Pulmonary effort is normal. Breath sounds: Normal breath sounds. Musculoskeletal: Cervical back: Normal range of motion. Neurological: Mental Status: She is alert. Assessment and Plan .ASSESSMENT/PLAN: 1. Viral URI - ICD9: 465.9, ICD10: J06.9 - Discussed viral etiology and rationale for treatment. - Symptomatic treatment with prn analgesia - Supportive care with fluids and rest - Covid test ordered/pending Latanya Matute APRN.CNP Medical Decision Making: Problems: Moderate: New problem with uncertain prognosis Data: Unique test(s) ordered: 1 Risk: Low: Low risk from testing/treatment Medical Decision Making Level: 3 - Low This patient encounter involved the screening or treatment of novel coronavirus infection (COVID-19). Latanya Matute APRN.CNP 07/23/2021 11:27 AM Signed Treatment for Viral Upper Respiratory Tract Infections Your body will kill off the virus by itself. Additionally, you can prime your body's immune system. This may help you get better more quickly. 1. Drink lots of fluids - at least one gallon of non-caffeinated liquids per day 2. Make sure you are eating well 3. Get plenty of rest - at least 8 hours of sleep per night for adults and more for children We do not have any medications that kill off these viruses. Antibiotics are used to treat bacterial infections; however, they are not active against viral infections. There are some things that might help you feel better, though. 1. Vaporizers, humidifiers, hot showers, and hot fluids help open respiratory and sinus pa (more content not included)... Normal [facility] COVID w FLU A+B Routon 07-23 Influenza A PCR Negative Normal [facility] Comment on above: Performed By: #### C OVFLU #### [place] [phone] Influenza B PCR Negative Normal [facility] Comment on above: Performed By: #### C OVFLU #### [place] [phone] SARS-CoV-2 (COVID-19) RNA LILLIANA+probe Ql (Unsp spec) UPPER RESPIRATORY TRACT SWAB Normal [facility] Comment on above: Performed By: #### C OVFLU #### [place] [id number] SARS-CoV-2 (COVID-19) RNA LILLIANA+probe Ql (Unsp spec) Negative for COVID19 (SARS CoV2) by RT-PCR or equivalent method. Normal Negative for COVID19 (SARS CoV2) by RT-PCR or equivalent method. [facility] Comment on above: Result Comment: This test was developed and its performance characteristics determined by [facility] [place]. This test has been authorized by FDA under an Emergency Use Authorization (EUA). This test has been validated in accordance with the FDA's Guidance Document Policy for Diagnostics Testing in Laboratories Certified to Perform High Complexity Testing under CLIA prior to Emergency use Authorization for Coronavirus Disease 2019 during the Public Health Emergency issued on September 03, 2019. Test performed by [facility], [facility] [place], [address] [place], [place] [id number]. Performed By: #### C OVFLU #### [facility] [address] [place] [id number] Vital Signs Date Time Vital Sign Value Performing Clinician Facility 12-29-2022 09:55-0400 Body height 170.[address] Niru Kemp Work Phone: [facility] 12-29-2022 09:54-0400 Body mass index (BMI) [Ratio] 34.9 kg/m2 Dr. Niru Kemp Work Phone: [facility] 12-29-2022 09:54-0400 Body weight 101.[address] Niru Kemp Work Phone: [facility] 12-29-2022 09:54-0400 Diastolic blood pressure 82 mm[Hg] Dr. Niru Kemp Work Phone: [facility] 12-29-2022 09:54-0400 Systolic blood pressure 132 mm[Hg] Dr. Niru Kemp Work Phone: [facility] 07-23-2022 11:10-0500 Body height 170.[address] Niru Kemp Work Phone: [facility] 07-23-2022 11:03-0500 Body mass index (BMI) [Ratio] 34.2 kg/m2 Dr. Niru Kemp Work Phone: [facility] 07-23-2022 11:03-0500 Body weight 98.[address] Niru Kemp Work Phone: [facility] 07-23-2022 11:03-0500 Diastolic blood pressure 84 mm[Hg] Dr. Niru Kemp Work Phone: [facility] 07-23-2022 11:03-0500 Systolic blood pressure 128 mm[Hg] Dr. Niru Kemp Work Phone: [facility] 11-30-2021 22:15-0400 Body height 167.6 cm Alexys Osorio MD Work Phone: [facility] 11-30-2021 22:15-0400 Body mass index (BMI) [Ratio] 25.82 kg/m2 Alexys Osorio MD Work Phone: [facility] 11-30-2021 22:15-0400 Body temperature 98.29 [degF] Alexys Osorio MD Work Phone: [facility] 11-30-2021 22:15-0400 Body weight 72.58 kg Alexys Osorio MD Work Phone: [facility] 11-30-2021 22:15-0400 Diastolic blood pressure 97 mm[Hg] Alexys Osorio MD Work Phone: [facility] 11-30-2021 22:15-0400 Heart rate 106 /min Alexys Osorio MD Work Phone: [facility] 11-30-2021 22:15-0400 Respiratory rate 12 /min Alexys Osorio MD Work Phone: [facility] 11-30-2021 22:15-0400 SaO2% (BldA) [Mass fraction] 98 % Alexys Osorio MD Work Phone: [facility] 11-30-2021 22:15-0400 Systolic blood pressure 145 mm[Hg] Alexys Osorio MD Work Phone: [facility] Encounters Encounter Date Encounter Type Care Provider Facility Start: 09-24-2024 End: 09-24-[address] Niru Kemp MD Work Phone: [facility] Work Phone: Start: 09-24-2024 End: 09-24-[address] Redd Unger MD -Laboratory Work Phone: Start: 09-24-2024 End: 09-24-2024 ambulatory Redd Unger Facility:[facility] Start: 07-22-2024 End: 07-22-[address] Redd Unger MD -Laboratory Work Phone: Start: 07-22-2024 End: 07-22-2024 ambulatory Niru Kemp Facility:[facility] Start: 03-05-2024 Encounter for gynecological examination (general) (routine) with abnormal findings Eva Vásquezvivienne [facility] Start: 03-04-2024 End: 03-04-2024 ambulatory [facility] Facility:[facility] Start: 09-25-2023 End: 09-25-2023 ambulatory [facility] Work Phone: Start: 09-25-2023 End: 09-25-2023 Patient encounter procedure [facility]Labor[facility] Work Phone: Start: 12-29-2022 End: 12-29-[address] Niru Kemp Work Phone: [facility] Work Phone: Start: 12-29-2022 End: 12-29-[address] Niru Kemp Work Phone: [facility]-Laboratory, Specimen Work Phone: Start: 12-29-2022 End: 12-29-[address] Niru Kemp Work Phone: [facility] Work Phone: Start: 08-06-2022 End: 08-06-[address] Niru Kemp Work Phone: [facility] Work Phone: Start: 08-06-2022 End: 08-06-[address] Niru Kemp Work Phone: [facility] Start: 08-01-2022 End: 08-01-[address] Niru Kemp Work Phone: [facility] Work Phone: Start: 08-01-2022 End: 08-01-[address] Niru Kemp Work Phone: [facility] Start: 07-23-2022 End: 07-23-[address] Niru Kemp Work Phone: [facility] Start: 11-30-2021 End: 11-30-2021 Emergency department patient visit Alexys Osorio MD Work Phone: [facility] Comment on above: Herpes simplex vulvo vaginitis (Primary Dx) Procedures Date Procedure Procedure Detail Performing Clinician Start: 08-06-[address] Kiran Kemp Work Phone: Start: 08-06-[address] Niru Kemp Work Phone: Plan of Treatment Date Care Activity Detail Author Start: 12-29-2022 Liquid based cervica l cytology screening [facility] Start: 03-06-2022 Influenza vaccination Flu vacc ine (Season Ended) [facility] Start: 12-19-2015 DTaP/Tdap/Td vaccine (7 - Td or Tdap) DTaP/Tdap/Td vaccine (7 - Td or Tdap) [facility] Start: 1997 COVID-19 Vaccine (1) COVID-19 Vaccin e (1) [facility] Path report.final Dx Spec [facility] Payers Date Payer Category Payer Self-pay [id number] 2023 Unknown [id number] 2003 Unknown ANTHEM [id number] 21 [id number] Unknown [id number] Unknown [id number] Unknown [id number] Social History Date Type Detail Facility Start: 07-23-2022 End: 05-06-2023 Tobacco smoking status NHIS Tobacco smoking consumption unknown [facility] Start: 1990 Sex Assigned At Not on file [facility] Work Phone: Start: 11-20-2021 End: 12-01-2021 Exposure to SARS-CoV-2 (event) Not sure [facility] Work Phone: Start: 1990 Sex Assigned At Female [facility] Start: 03-04-2024 Tobacco smoking status NHIS Never smoked tobacco (finding) [facility] Start: 09-30-2024 Sex Female (finding) [facility] Discharge instructions 11-30-2021 InstructionsAttachments Note Date & Type Note Facility 11-30-2021 Hospital Discharg e instructions Alexys Osorio MD - 11/30/2021 Please return to the Emergency Department immediately for new or worsening symptoms or any new concerns. Please follow-up with [your primary care doctor] within the next [3-5] days. The following attachments cannot be sent through Care Everywhere.Genital Herpes ([place] Irish)documented in this encounter [facility] Work Phone: Progress note 07-23-2021 Note Date & Type Note Facility 07-23-2021 Note HNO ID: [id number] Author: Latanya Matute APRN.SUPPORT ANALYST Service: ? Author Type: Nurse Practitioner Type: Progress Notes Filed: 07/23/2021 11:29 AM Note Text: This note was created using NoteWriter. Subjective Avelino Anton is a 30 year old female. HPI by patient: Avelino is a 30 yo female presenting to the office with the complaint of head congestion and sore throat. Started approximately 07/22 Associated symptoms include nasal congestion, sinus pressure, ear pressure, sore throat. Denies SOB, nausea or diarrhea Vaccinated for influenza: Yes Covid Immunization Dates COVID-19 VACCINE (3 - Booster for Pfizer series) Next due on 09/19/2021 04/21/2021 Imm Admin: COVID-19 vaccine, age 12+ yr (PFIZER-BIONTECH - PURPLE TOP) 03/30/2021 Imm Admin: COVID-19 vaccine, age 12+ yr (PFIZER-BIONTECH - PURPLE TOP) Personal history of Covid: Yes Flu/RSV contacts: No Strep contacts: No Sick contacts: Yes Covid + contacts: unknown Travel in the last 14 days: No Smoking history/second hand smoke: No OTC Benadryl and Dayquil No antibiotic use in the last 30 days. ALLERGIES No Known Allergies Family History Reviewed Including Cardiac Diseases, Psychiatric Diseases, AND Substance Abuse Problem: Thyroid Relation: Mother Age of Onset: (Not Specified) Problem: No Known Problems Relation: Father Age of Onset: (Not Specified) Problem: other (Liver Issues) Relation: Sister Age of Onset: (Not Specified) Problem: No Known Problems Relation: Brother Age of Onset: (Not Specified) Problem: Diabetes Relation: Maternal Grandmother Age of Onset: (Not Specified) Problem: Breast Cancer Relation: Maternal Grandmother Age of Onset: (Not Specified) Problem: Cancer Relation: Maternal Grandfather Age of Onset: (Not Specified) Comment: Throat and Lung Problem: Mental illness Relation: Paternal Grandmother Age of Onset: (Not Specified) Problem: other (multiple sclerosis) Relation: Paternal Grandfather Age of Onset: (Not Specified) Social History Tobacco Use Smoking status: Never Smoker Smokeless tobacco: Never Used Alcohol use: No Drug use: No Review of Systems Constitutional: Negative. HENT: Positive for congestion, ear pain, postnasal drip, sinus pressure, sinus pain and sore throat. Eyes: Negative. Respiratory: Negative. Cardiovascular: Negative. Gastrointestinal: Negative. Objective BP 111/75 Pulse 94 Temp 36.9 ?C (98.5 ?F) (Oral) Resp 16 Wt 95.7 kg (211 lb) LMP 08/14/2018 SpO2 99% BMI 33.05 kg/m? Physical Exam Constitutional: Appearance: Normal appearance. HENT: Head: Normocephalic. Right Ear: Tenderness present. A middle ear effusion is present. Left Ear: Tympanic membrane normal. Nose: Congestion present. Mouth/Throat: Mouth: Mucous membranes are moist. Pharynx: Posterior oropharyngeal erythema present. Eyes: Conjunctiva/sclera: Conjunctivae normal. Pupils: Pupils are equal, round, and reactive to light. Cardiovascular: Rate and Rhythm: Normal rate and regular rhythm. Pulses: Normal pulses. Pulmonary: Effort: Pulmonary effort is normal. Breath sounds: Normal breath sounds. Musculoskeletal: Cervical back: Normal range of motion. Neurological: Mental Status: She is alert. Assessment and Plan .ASSESSMENT/PLAN: 1. Viral URI - ICD9: 465.9, ICD10: J06.9 - Discussed viral etiology and rationale for treatment. - Symptomatic treatment with prn analgesia - Supportive care with fluids and rest - Covid test ordered/pending Latanya Matute APRN.CNP Medical Decision Making: Problems: Moderate: New problem with uncertain prognosis Data: Unique test(s) ordered: 1 Risk: Low: Low risk from testing/treatment Medical Decision Making Level: 3 - Low This patient encounter involved the screening or treatment of novel coronavirus infection (COVID-19). [facility] Evaluation note Note Date & Type Note Facility Evaluation note Diagnosis Herpes simplex vulvovaginitis- Primary documented in this encounter [facility] Work Phone: Evaluation note Note Date & Type Note Facility Evaluation note Diagnosis Onset Date Abnormal uterine bleeding (AUB) acute [facility] Work Phone: Evaluation note Note Date & Type Note Facility Evaluation note Diagnosis Onset Date Encounter for routine gyneco logical examination noneactive [facility] Work Phone: Evaluation note Note Date & Type Note Facility Evaluation note No assessment information availa ble [facility] Work Phone: Reason for referral (narrative) Note Date & Type Note Facility Reason for referral (narrative) No reason for referral information available [facility] Work Phone: Summary Purpose Family History Relationship Condition Age at Onset Recorded Date/T ginger mother Disorder of thyroid Unknown grandmother Diabetes mellitus Unknown Malignant neoplasm of breast Unknown Family history of mental disorder Unknown grandfather Malignant neoplasm Unknown Multiple sclerosis Unknown father Myocardial infarction Unknown Advance Directives No Advanced Directives Records FoundNo Advanced Directives Records Found Chief Complaint and Reason for Visit Chief Complaint breakthrough bleedin g Abnormal uterine and vaginal bleeding, unspecified Reason for Visit Abnormal uterine ble eding (AUB) Premature ovarian failure Chief 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) Reason for Visit Encounter for routin e gynecological examination Additional Source Comments INFORMATION SOURCE (unrecogn ized section and content) DATE CREATED AUTHOR 09/30/2021 [facility] DATE CREATED AUTHOR AUTHOR'S ORGANIZ ATION 10/02/2024 [facility] Reason for Visit (unrecogniz ed section and content) Reason Comments Exposure to STD Ordered Prescriptions (unrec ognized section and content) Prescription Sig Dispensed Refills Start Date End Da te acyclovir (ZOVIRAX) 400 MG tablet Take 1 tablet by mouth every 8 (eight) hours for 10 days 30 tablet 0 11/30/2021 12/10/2021 Scheduled Active and Recently Administ ered Medications (unrecognized section and content) Medication Order 11/28/2021 11/29/2021 11/30/2021 acyclovir (ZOVIRAX) capsule 400 mg 400 mg, Oral, 5 TIMES DAILY, First dose on 11/30/21 at 2300, Until Discontinued, Antimicrobial Indications: STD infection 2240 (Given - Provid er: Eliot Taylor RN) Care Teams (unrecognized sec tion and content) Team Status: Active Member Role Status Dates Dr. Niru Kemp MD Family Provider Active Dr. Niru Kemp MD Primary Care Provider Active Team Status: Inactive Member Role Status Dates Dr. Niru Kemp MD Primary Care Provider, Referrin g Provider Active Brenna Figueroa NP, [employer] Attending Provider Active Team Status: Active Member Role Status Dates Dr. Niru Kemp MD Primary Care Provider Active Brenna Figueroa NP, [employer] Attending Provider Active Team Status: Inactive Member Role Status Dates Dr. Niru Kemp MD Primary Care Provider, Attendin g Provider Active Team Status: Inactive Member Role Status Dates Dr. Niru Kemp MD Primary Care Provider Active Brenna Figueroa NP, [employer] Attending Provider Active Team Status: Inactive Member Role Status Dates Dr. Niru Kemp MD Primary Care Provider, Referrin g Provider Active Dr. Eva Griffith MD Attending Provider Active Team Status: Inactive Member Role Status Dates Dr. Niru Kemp MD Primary Care Provider Active Dr. Eva Griffith MD Attending Provider, Referr ing Provider Active Team Status: Inactive Member Role Status Dates Dr. Niru Kemp MD Primary Care Prov ider, Attending Provider, Referring Provider Active Team Status: Inactive Member Role Status Dates Dr. Niru Kemp MD Primary Care Provider Active Start: July 22, 2024 End: July 22, 2024 Dr. Redd Unger MD Attending Provider Active Start: July 22, 2024 End: July 22, 2024 Dr. Redd Unger MD Referring Provider Active Start: July 22, 2024 End: July 22, 2024 Team Status: Inactive Member Role Status Dates Dr. Niru Kemp MD Primary Care Provider Active Start: September 24, 2024 End: September 24, 2024 Dr. Redd Unger MD Attending Provider Active Start: September 24, 2024 End: September 24, 2024 Dr. Redd Unger MD Referring Provider Active Start: September 24, 2024 End: September 24, 2024 Goals (unrecognized section and content) Goals may be documented in a n alternate sectionGoals may be documented in an alternate sectionGoals may be documented in an alternate sectionGoals may be documented in an alternate sectionGoals may be documented in an alternate section FOR RECORDS PERTAINING TO PATIENTS WHO ARE OR HAVE BEEN ENROLLED IN A CHEMICAL DEPENDENCY/SUBSTANCEABUSE PROGRAM, SOME INFORMATION MAY BE OMITTED. This clinical summary was aggregated from multiple sources. Caution should be exercised in using it in the provision of clinical care. This summary normalizes information from multiple sources, and as a consequence, information in this document may materially change the coding, format and clinical context of patient data. In addition, data may be omitted in some cases. CLINICAL DECISIONS SHOULD BE BASED ON THE PRIMARY CLINICAL RECORDS. [employer] provides no warranty or guarantee of the accuracy or completeness of information in this document.
--- OUTSIDE RECORDS SUMMARY | 2025-02-11 07:41 | XMS RPT_ITS | CCD ---
Author Organization [facility] Care Team Providers Care Retail Support Manager Name Role Phone Unavailable Primary Care Provider Dr. Niru Copeland Primary Care Provider Dr. Niru Kemp Referring Provider [phone] [place] PIPE BOWL PAINT TRIMMER, MENDEZ Ceja Attending Provider Dr. Niru Kemp Primary Care Provider Dr. Niru Kemp Referring Provider Dr. Eva Griffith Attending Provider Redd Unger Attending Unavailable Redd Unger Referring Unavailable Niru Kemp Primary Care Unavailable Niru Kemp Primary Care Unavailable Redd Unger Attending Unavailable Redd Unger Referring Unavailable Niru Kemp Primary Care Unavailable Niru Kemp Referring Unavailable Eva Griffith Attending Unavailable Dr. Niru Kemp MD Primary Care Provider Dr. Redd Unger MD Attending Provider Dr. [...] 2:48pm Start: 01-11-2020 End: 10-29-2020 Norethindrone-E.Estradiol-Ir on (Krei 24 Fe) 1 mg-20 mcg (24)/75 mg [...] Interpretation Reference Range Facility CRP, High Sensitivity [id number] on 09-25-2024 CRP, HIGH SENS 4.31 mg/L High 0.00-3.00 [facility] Comment on above: Result Comment: Rela tive Risk for Future Cardiovascular Event Low <1.00 Average 1.00 - 3.00 High >3.00 Performed at: [employer] [facility] [id number] Targeting Acquisition Officer: Santo Laird PhD, Phone: [phone] Performed By: #### L 3100.5170, L803.3000, L501.71623, L3100.5310, L509.7000, L500.4050, L3300.3500, L509.6000, L501.9520, L501.9310, L3300.1500, L501.6710, L100.0500, L3100.5125 #### [facility] [place], [address] Insulin Levelon 09-25-2024 INSULIN,FASTING 17.7 uIU/mL Normal 2.6-24.9 [facility] Comment on above: Result Comment: Perf ormed at: CB - [facility] [address] [place], [place] [id number] Targeting Acquisition Officer: Santo Laird PhD, Phone: [phone] Performed By: #### L 3100.5170, L803.3000, L501.31068, L3100.5310, L509.7000, L500.4050, L3300.3500, L509.6000, L501.9520, L501.9310, L3300.1500, L501.6710, L100.0500, L3100.5125 #### [facility] [address] [facility] [place], [place], [id number] C-reactive protein measureme nt by high sensitivity methodOrdered By: Redd Unger on 09-24-2024 C-Reactive Protein High Sensitivity 4.31 mg/L High 0.00-3.00 [facility] Comment on above: Relative Risk for Fu ture Cardiovascular Event Low <1.00 Average 1.00 - 3.00 High >3.00Performed at: - [facility] [address] [id number] Director: Santo Laird PhD, Phone: [phone] Insulin [Mass/Vol]Ordered By : Redd Unger on 09-24-2024 Insulin Level 17.7 uIU/mL 2.6-24.9 [facility] Comment on above: Performed at: [employer] [facility] - [facility] [address] [id number] Director: Santo Laird PhD, Phone: [phone] L540.6004on 09-24-2024 CORTISOL 21.20 ug/dL High 6.02-18.40 [facility] Comment on above: Performed By: #### L 3100.5170, L803.3000, L501.33253, L3100.5310, L509.7000, L500.4050, L3300.3500, L509.6000, L501.9520, L501.9310, L3300.1500, L501.6710, L100.0500, L3100.5125 #### [facility] [address] [place], [place], [id number] No Panel InformationOrdered By: Redd Unger on 09-24-2024 Cortisol AM Sample 21.20 ug/dL High 6.02-18.40 [facility] Antimullerian Hormone, Serum on 07-27-2024 AMH, SERUM < 0.[address] [facility] Comment on above: Order Comment: NN Result Comment: For assays employing antibodies, the possibility exists for interference by heterophile antibodies in the samples.1 1.Prashant Laureano Interferences in Immunoassays - still a threat. Clin. Chem. 2000; 46: 7818-9152. This test was developed and its performance characteristics determined by [employer]. It has not been cleared or approved by the Food and Drug Administration. Reference Range: Females 31 - 35y: 0.66 - 8.75 Median 3.00 AMH concentrations of >= 1.06 ng/mL is correlated with a better response to ovarian stimulation, produced more retrievable oocytes and higher odds of live according to Jeffreyer et al. Fertility and Sterility. 2010: 94:5538-5120. The current AMH test method correlates with [...] tumor. Performed By: #### L 3100.5170, L803.3000, L501.09805, L3100.5310, L509.7000, L500.4050, L3300.3500, L509.6000, L501.9520, L501.9310, L3300.1500, L501.6710, L100.0500, L3100.5125 #### [facility] [address] [place], [place], [id number] DHEA Sulfateon 07-27-2024 DHEA SULFATE 109.0 ug/dL Normal 84.8-378.0 [facility] Comment on above: Order Comment: NN Performed By: #### L 3100.5170, L803.3000, L501.79518, L3100.5310, L509.7000, L500.4050, L3300.3500, L509.6000, L501.9520, L501.9310, L3300.1500, L501.6710, L100.0500, L3100.5125 #### [facility] [address] [facility] [place], [address] Insulin Levelon 07-27-2024 INSULIN,FASTING 18.2 uIU/mL Normal 2.6-24.9 [facility] Comment on above: Order Comment: NN Result Comment: Perf ormed at: [facility] [id number] Targeting Acquisition Officer: Santo Laird PhD, Phone: [phone] Performed at: [facility] [id number] Targeting Acquisition Officer: Estela Dior MD, Phone: [phone] Performed at: [employer] [address] [place] [id number] Targeting Acquisition Officer: Del Santana MD, Phone: [phone] Performed By: #### L 3100.5170, L803.3000, L501.35718, L3100.5310, L509.7000, L500.4050, L3300.3500, L509.6000, L501.9520, L501.9310, L3300.1500, L501.6710, L100.0500, L3100.5125 #### [facility] [address] [facility] [place], [address] Testosterone, Total / Freeon 07-27-2024 TESTOSTER,FREE 0.11 ng/dL Normal 0.10-0.85 [facility] Comment on above: Order Comment: NN Performed By: #### L 3100.5170, L803.3000, L501.23772, L3100.5310, L509.7000, L500.4050, L3300.3500, L509.6000, L501.9520, L501.9310, L3300.1500, L501.6710, L100.0500, L3100.5125 #### [facility] [address] [place], [place], [id number] TESTOSTER,TOTAL 8 ng/dL Normal 8-60 [facility] Comment on above: Order Comment: NN Performed By: #### L 3100.5170, L803.3000, L501.31359, L3100.5310, L509.7000, L500.4050, L3300.3500, L509.6000, L501.9520, L501.9310, L3300.1500, L501.6710, L100.0500, L3100.5125 #### [facility] [address] [facility]. [place], [place], [id number] TESTOSTERONE,%F 1.34 Normal 0.50-2.80 [facility] Comment on above: Order Comment: NN Performed By: #### L 3100.5170, L803.3000, L501.82205, L3100.5310, L509.7000, L500.4050, L3300.3500, L509.6000, L501.9520, L501.9310, L3300.1500, L501.6710, L100.0500, L3100.5125 #### [facility] [address] [place], [place], [id number] Albumin to globulin ratioOrd ered By: Redd Unger on 07-22-2024 Albumin/Globulin [Mass ratio] 0.9 {ratio} 0.9-2.4 [facility] Bilirubin, totalOrdered By: Redd Unger on 07-22-2024 Bilirubin [Mass/Vol] 0.30 mg/dL 0.20-1.00 [facility] Comment on above: For patients on eltr ombopag therapy, use of Dimension [place] TBIL is not recommended. Blood urea nitrogen (BUN)/cr eatinine ratioOrdered By: Redd Unger on 07-22-2024 Urea nitrogen/Creatinine [Mass ratio] 16.0 mg/mg 10-20 [facility] C-reactive protein measureme nt by high sensitivity methodOrdered By: Redd Unger on 07-22-2024 C-Reactive Protein Extended Range 4.84 mg/L High 0.0-3.0 [facility] Comment on above: C-Reactive Protein ( CRP) provides useful information for thediagnosis, therapy and monitoring of inflammatory processesand associated diseases. For the evaluation of Relative Riskfor Cardiovascular Disease, a High Sensitivity CRP (HSCRP)should be ordered. CBC-Complete Blood Cnt No Di ffon 07-22-2024 Erythrocyte distribution width (RBC) [Ratio] 12.0 % Normal 11.6-14.6 [facility] Comment on above: Performed By: #### L 3100.5170, L803.3000, L501.29945, L3100.5310, L509.7000, L500.4050, L3300.3500, L509.6000, L501.9520, L501.9310, L3300.1500, L501.6710, L100.0500, L3100.5125 #### [facility] [address] [facility] [place], [address] Hematocrit (Bld) [Volume fraction] 40.6 % Normal 37-47 [facility] Comment on above: Performed By: #### L 3100.5170, L803.3000, L501.12872, L3100.5310, L509.7000, L500.4050, L3300.3500, L509.6000, L501.9520, L501.9310, L3300.1500, L501.6710, L100.0500, L3100.5125 #### [facility] [address] [facility] [place], [address] Hemoglobin (Bld) [Mass/Vol] 13.5 g/dL Normal 12.0-15.0 [facility] Comment on above: Performed By: #### L 3100.5170, L803.3000, L501.51669, L3100.5310, L509.7000, L500.4050, L3300.3500, L509.6000, L501.9520, L501.9310, L3300.1500, L501.6710, L100.0500, L3100.5125 #### [facility] [address] [facility] [place], [address] MCH (RBC) [Entitic mass] 29.2 pg Normal 27.0-32.0 [facility] Comment on above: Performed By: #### L 3100.5170, L803.3000, L501.92514, L3100.5310, L509.7000, L500.4050, L3300.3500, L509.6000, L501.9520, L501.9310, L3300.1500, L501.6710, L100.0500, L3100.5125 #### [facility] [address] [place], [address] MCHC (RBC) [Mass/Vol] 33.3 g/dL Normal 32-36 [facility] Comment on above: Performed By: #### L 3100.5170, L803.3000, L501.01406, L3100.5310, L509.7000, L500.4050, L3300.3500, L509.6000, L501.9520, L501.9310, L3300.1500, L501.6710, L100.0500, L3100.5125 #### [facility] [address] [place], [address] MCV (RBC) [Entitic vol] 87.7 fL Normal 81-99 [facility] Comment on above: Performed By: #### L 3100.5170, L803.3000, L501.19761, L3100.5310, L509.7000, L500.4050, L3300.3500, L509.6000, L501.9520, L501.9310, L3300.1500, L501.6710, L100.0500, L3100.5125 #### [facility] [address] [place], [address] Platelet mean volume (Bld) [Entitic vol] 12.9 fL High 6.2-12.0 [facility] Comment on above: Performed By: #### L 3100.5170, L803.3000, L501.25249, L3100.5310, L509.7000, L500.4050, L3300.3500, L509.6000, L501.9520, L501.9310, L3300.1500, L501.6710, L100.0500, L3100.5125 #### [facility] [address] [place], [address] Platelets (Bld) [#/Vol] 247 10*3/uL Normal 150-450 [facility] Comment on above: Performed By: #### L 3100.5170, L803.3000, L501.67624, L3100.5310, L509.7000, L500.4050, L3300.3500, L509.6000, L501.9520, L501.9310, L3300.1500, L501.6710, L100.0500, L3100.5125 #### [facility] [address] [place], [address] (582) RBC (Bld) [#/Vol] 4.63 10*6/uL Normal 4.2-5.4 [facility] Comment on above: Performed By: #### L 3100.5170, L803.3000, L501.84835, L3100.5310, L509.7000, L500.4050, L3300.3500, L509.6000, L501.9520, L501.9310, L3300.1500, L501.6710, L100.0500, L3100.5125 #### [facility] [address] [place], [address] RDW SD 38.7 fl Normal 35.1-43.9 [facility] Comment on above: Performed By: #### L 3100.5170, L803.3000, L501.02262, L3100.5310, L509.7000, L500.4050, L3300.3500, L509.6000, L501.9520, L501.9310, L3300.1500, L501.6710, L100.0500, L3100.5125 #### [facility] [address] [place], [place], [id number] WBC (Bld) [#/Vol] 6.4 10*3/uL Normal 4.4-11.0 [facility] Comment on above: Performed By: #### L 3100.5170, L803.3000, L501.20915, L3100.5310, L509.7000, L500.4050, L3300.3500, L509.6000, L501.9520, L501.9310, L3300.1500, L501.6710, L100.0500, L3100.5125 #### [facility] [address] [facility] [place], [address] CORTISOL SERUMon 07-22-2024 CORTISOL 28.80 ug/dL High 3.44-22.45 [facility] Comment on above: Result Comment: Adul t (AM) 5.27 - 22.45 ug/dL Adult (PM) 3.44 - 16.76 ug/dL Performed By: #### L 3100.5170, L803.3000, L501.42773, L3100.5310, L509.7000, L500.4050, L3300.3500, L509.6000, L501.9520, L501.9310, L3300.1500, L501.6710, L100.0500, L3100.5125 #### [facility] [address] [place], [address] CRPon 07-22-2024 C-REACTIVE PROT 4.84 mg/L High 0.0-3.0 [facility] Comment on above: Order Comment: N N Result Comment: C-Re active Protein (CRP) provides useful information for the diagnosis, therapy and monitoring of inflammatory processes and associated diseases. For the evaluation of Relative Risk for Cardiovascular Disease, a High Sensitivity CRP (HSCRP) should be ordered. Performed By: #### L 3100.5170, L803.3000, L501.30580, L3100.5310, L509.7000, L500.4050, L3300.3500, L509.6000, L501.9520, L501.9310, L3300.1500, L501.6710, L100.0500, L3100.5125 #### [facility] [address] [place], [address] Carbon dioxide measurementOr dered By: Redd Unger on 07-22-2024 CO2 [Moles/Vol] 22.0 mmol/L 21.0-32.0 [facility] Chloride measurementOrdered By: Redd Unger on 07-22-2024 Chloride [Moles/Vol] 112 mmol/L High 98-107 [facility] Comprehensive Metabolic Prof ilon 07-22-2024 Albumin [Mass/Vol] 3.4 g/dL Normal 3.2-5.0 [facility] Comment on above: Order Comment: N N Performed By: #### L 3100.5170, L803.3000, L501.32907, L3100.5310, L509.7000, L500.4050, L3300.3500, L509.6000, L501.9520, L501.9310, L3300.1500, L501.6710, L100.0500, L3100.5125 #### [facility] [address] [place], [address] Albumin/Globulin [Mass ratio] 0.9 {ratio} Normal 0.9-2.4 [facility] Comment on above: Order Comment: N N Performed By: #### L 3100.5170, L803.3000, L501.78778, L3100.5310, L509.7000, L500.4050, L3300.3500, L509.6000, L501.9520, L501.9310, L3300.1500, L501.6710, L100.0500, L3100.5125 #### [facility] [address] [facility] [place], [place], [id number] ALK P 68 U/L Normal 45-117 [facility] Comment on above: Order Comment: N N Performed By: #### L 3100.5170, L803.3000, L501.41647, L3100.5310, L509.7000, L500.4050, L3300.3500, L509.6000, L501.9520, L501.9310, L3300.1500, L501.6710, L100.0500, L3100.5125 #### [facility] [address] [place], [place], [id number] ALT [Catalytic activity/Vol] 13 U/L Normal 13-56 [facility] Comment on above: Order Comment: N N Performed By: #### L 3100.5170, L803.3000, L501.09433, L3100.5310, L509.7000, L500.4050, L3300.3500, L509.6000, L501.9520, L501.9310, L3300.1500, L501.6710, L100.0500, L3100.5125 #### [facility] [address] [place], [place], [id number] AST [Catalytic activity/Vol] 10 U/L Low 15-37 [facility] Comment on above: Order Comment: N N Performed By: #### L 3100.5170, L803.3000, L501.63279, L3100.5310, L509.7000, L500.4050, L3300.3500, L509.6000, L501.9520, L501.9310, L3300.1500, L501.6710, L100.0500, L3100.5125 #### [facility] [address] [place], [place], [id number] Bilirubin [Mass/Vol] 0.30 mg/dL Normal 0.20-1.00 [facility] Comment on above: Order Comment: N N Result Comment: For patients on eltrombopag therapy, use of Dimension [place] TBIL is not recommended. Performed By: #### L 3100.5170, L803.3000, L501.92837, L3100.5310, L509.7000, L500.4050, L3300.3500, L509.6000, L501.9520, L501.9310, L3300.1500, L501.6710, L100.0500, L3100.5125 #### [facility] [address] [place], [place], [id number] BUN/CRE 16.0 RATIO Normal 10-20 [facility] Comment on above: Order Comment: N N Performed By: #### L 3100.5170, L803.3000, L501.22726, L3100.5310, L509.7000, L500.4050, L3300.3500, L509.6000, L501.9520, L501.9310, L3300.1500, L501.6710, L100.0500, L3100.5125 #### [facility] [address] [place], [place], [id number] CA,Total 8.9 mg/dL Normal 8.5-10.1 [facility] Comment on above: Order Comment: N N Performed By: #### L 3100.5170, L803.3000, L501.50509, L3100.5310, L509.7000, L500.4050, L3300.3500, L509.6000, L501.9520, L501.9310, L3300.1500, L501.6710, L100.0500, L3100.5125 #### [facility] [address] [place], [address] Chloride [Moles/Vol] 112 mmol/L High 98-107 [facility] Comment on above: Order Comment: N N Performed By: #### L 3100.5170, L803.3000, L501.01179, L3100.5310, L509.7000, L500.4050, L3300.3500, L509.6000, L501.9520, L501.9310, L3300.1500, L501.6710, L100.0500, L3100.5125 #### [facility] [address] [place], [address] (253) CO2 [Moles/Vol] 22.0 mmol/L Normal 21.0-32.0 [facility] Comment on above: Order Comment: N N Performed By: #### L 3100.5170, L803.3000, L501.59419, L3100.5310, L509.7000, L500.4050, L3300.3500, L509.6000, L501.9520, L501.9310, L3300.1500, L501.6710, L100.0500, L3100.5125 #### [facility] [address] [place], [address] Creatinine [Mass/Vol] 0.81 mg/dL Normal 0.55-1.02 [facility] Comment on above: Order Comment: N N Result Comment: The validity of the calculated GFR GFRAA in patients over 70 years has not been determined. Clinical correlation is essential. Performed By: #### L 3100.5170, L803.3000, L501.89390, L3100.5310, L509.7000, L500.4050, L3300.3500, L509.6000, L501.9520, L501.9310, L3300.1500, L501.6710, L100.0500, L3100.5125 #### [facility] [address] [place], [address] (548) EST GFR - AA 106 mL/min Normal >60 [facility] Comment on above: Order Comment: N N Result Comment: Afri can Cuban GFR Calc Performed By: #### L 3100.5170, L803.3000, L501.52051, L3100.5310, L509.7000, L500.4050, L3300.3500, L509.6000, L501.9520, L501.9310, L3300.1500, L501.6710, L100.0500, L3100.5125 #### [facility] [address] [place], [place], [phone] (443) GAP 5 Normal 5-15 [facility] Comment on above: Order Comment: N N Performed By: #### L 3100.5170, L803.3000, L501.78145, L3100.5310, L509.7000, L500.4050, L3300.3500, L509.6000, L501.9520, L501.9310, L3300.1500, L501.6710, L100.0500, L3100.5125 #### [facility] [address] [place], [place], [id number] [phone] GFR/1.73 sq M.predicted among non-blacks MDRD (S/P/Bld) [Vol rate/Area] 87 mL/min/{1.73_m2} Normal >60 [facility] Comment on above: Order Comment: N N Result Comment: Non- GFR Calc Performed By: #### L 3100.5170, L803.3000, L501.84530, L3100.5310, L509.7000, L500.4050, L3300.3500, L509.6000, L501.9520, L501.9310, L3300.1500, L501.6710, L100.0500, L3100.5125 #### [facility] [address] [place], [place], [phone] (862) Globulin (S) [Mass/Vol] 3.7 g/dL Normal 2.2-4.2 [facility] Comment on above: Order Comment: N N Performed By: #### L 3100.5170, L803.3000, L501.77717, L3100.5310, L509.7000, L500.4050, L3300.3500, L509.6000, L501.9520, L501.9310, L3300.1500, L501.6710, L100.0500, L3100.5125 #### [facility] [address] [place], [address] Glucose [Mass/Vol] 89 mg/dL Normal 74-106 [facility] Comment on above: Order Comment: N N Performed By: #### L 3100.5170, L803.3000, L501.50747, L3100.5310, L509.7000, L500.4050, L3300.3500, L509.6000, L501.9520, L501.9310, L3300.1500, L501.6710, L100.0500, L3100.5125 #### [facility] [address] [place], [address] Potassium [Moles/Vol] 3.8 mmol/L Normal 3.5-5.1 [facility] Comment on above: Order Comment: N N Performed By: #### L 3100.5170, L803.3000, L501.09346, L3100.5310, L509.7000, L500.4050, L3300.3500, L509.6000, L501.9520, L501.9310, L3300.1500, L501.6710, L100.0500, L3100.5125 #### [facility] [address] [place], [address] Sodium [Moles/Vol] 139 mmol/L Normal 136-145 [facility] Comment on above: Order Comment: N N Performed By: #### L 3100.5170, L803.3000, L501.78858, L3100.5310, L509.7000, L500.4050, L3300.3500, L509.6000, L501.9520, L501.9310, L3300.1500, L501.6710, L100.0500, L3100.5125 #### [facility] [address] [place], [place], [phone] (574) T PROT 7.1 g/dL Normal 6.4-8.2 [facility] Comment on above: Order Comment: N N Performed By: #### L 3100.5170, L803.3000, L501.55266, L3100.5310, L509.7000, L500.4050, L3300.3500, L509.6000, L501.9520, L501.9310, L3300.1500, L501.6710, L100.0500, L3100.5125 #### [facility] [address] [facility] [place], [place], [phone] Urea nitrogen [Mass/Vol] 13 mg/dL Normal 7-18 [facility] Comment on above: Order Comment: N N Performed By: #### L 3100.5170, L803.3000, L501.65044, L3100.5310, L509.7000, L500.4050, L3300.3500, L509.6000, L501.9520, L501.9310, L3300.1500, L501.6710, L100.0500, L3100.5125 #### [facility] [address] [facility] [place], [place], [id number] Cortisol [Mass/Vol]Ordered B y: Redd Unger on 07-22-2024 Cortisol 28.80 ug/dL High 3.44-22.45 [facility] Comment on above: Adult (AM) 5.27 - 22 .45 ug/dL Adult (PM) 3.44 - 16.76 ug/dL Dehydroepiandrosterone sulfa te (DHEA-S) measurementOrdered By: Redd Unger on 07-22-2024 Dehydroepiandrosterone Sulfate 109.0 ug/dL 84.8-378.0 [facility] Erythrocyte distribution wid th ratioOrdered By: Redd Unger on 07-22-2024 Erythrocyte distribution width (RBC) [Ratio] 12.0 % 11.6-14.6 [facility] Erythrocyte distribution wid th standard deviationOrdered By: Redd Unger on 07-22-2024 Erythrocyte distribution width (RBC) [Entitic vol] 38.7 fL 35.1-43.9 [facility] Estimated glomerular filtrat ion rate (GFR) AmericanOrdered By: Redd Unger on 07-22-2024 Estimated GFR (MDRD) Amer 106 mL/min >60 [facility] Comment on above: GFR Calc Flecainide [Mass/Vol]Ordered By: Redd Unger on 07-22-2024 Anti-Mullerian Hormone < 0.015 ng/mL . [facility] Comment on above: For assays employing antibodies, the possibility exists forinterference by heterophile antibodies in the samples.11.Prashant Laureano Interferences in Immunoassays - still a threat. Clin. Chem. 2000; 46: 7649-3583.This test was developed and its performance characteristicsdetermined by [employer]. It has not been cleared or approvedby the Food and Drug Administration.Reference Range:Females 31 - 35y: 0.66 - 8.75Median 3.00AMH concentrations of >= 1.06 ng/mL is correlated with abetter response to ovarian stimulation, produced moreretrievable oocytes and higher odds of live accordingto Chaitanya et al. Fertility and Sterility. 2010:94:7216-5927. The current AMH test method correlates withthe [...] Hormone on 07-22-2024 FSH 0.8 mIU/mL Normal [facility] Comment on above: Order Comment: N N Result Comment: NORMAL REFERENCE RANGES FEMALE FOLLICULAR 2.3 - 12.6 mIU/mL MID-CYCLE PEAK 5.2 - 17.5 mIU/mL LUTEAL 1.7 - 12.9 mIU/mL POST-MENOPAUSAL ON MHT 5.9 - 72.8 mIU/mL NOT ON MHT 12.7 - 132.2 mlU/mL MALE 0.7 - 10.8 mIU/mL Performed By: #### L 3100.5170, L803.3000, L501.90387, L3100.5310, L509.7000, L500.4050, L3300.3500, L509.6000, L501.9520, L501.9310, L3300.1500, L501.6710, L100.0500, L3100.5125 #### [facility] [address], [place], [id number] Follicle stimulating hormone (FSH) levelOrdered By: Redd Unger on 07-22-2024 Follicle Stimulating Hormone 0.8 mIU/mL [facility] Comment on above: NORMAL REFERENCE RAN GES FEMALE FOLLICULAR 2.3 - 12.6 mIU/mL MID-CYCLE PEAK 5.2 - 17.5 mIU/mL LUTEAL 1.7 - 12.9 mIU/mL POST-MENOPAUSAL ON MHT 5.9 - 72.8 mIU/mL NOT ON MHT 12.7 - 132.2 mlU/mL MALE 0.7 - 10.8 mIU/mL Free T3on 07-22-2024 Free T3 [Mass/Vol] 2.7 pg/mL Normal 2.18-3.98 [facility] Comment on above: Order Comment: N N Performed By: #### L 3100.5170, L803.3000, L501.75978, L3100.5310, L509.7000, L500.4050, L3300.3500, L509.6000, L501.9520, L501.9310, L3300.1500, L501.6710, L100.0500, L3100.5125 #### [facility] [address] [place], [address] Free J3Dwormei By: Redd north on 07-22-2024 Free Triiodothyronine (T3) pg/dL 2.7 pg/mL 2.18-3.98 [facility] Glomerular filtration rate ( GFR) estimationOrdered By: Redd Unger on 07-22-2024 Estimated GFR (MDRD) Non-Af Amer 87 mL/min >60 [facility] Comment on above: Non- GFR Calc Glucose measurementOrdered B y: Redd Unger on 07-22-2024 Glucose [Mass/Vol] 89 mg/dL 74-106 [facility] Hematocrit Auto (Bld) [Volum e fraction]Ordered By: Redd Unger on 07-22-2024 Hematocrit (Bld) [Volume fraction] 40.6 % 37-47 [facility] Hemoglobin measurementOrdere d By: Redd Unger on 07-22-2024 Hemoglobin (Bld) [Mass/Vol] 13.5 g/dL 12.0-15.0 [facility] Insulin [Mass/Vol]Ordered By : Redd Unger on 07-22-2024 Insulin Level 18.2 uIU/mL 2.6-24.9 [facility] Comment on above: Performed at: CB - [address] [id number] Director: Santo Laird PhD, Phone: [phone] at: BN - [facility] [address] [id number] Director: Estela Dior MD, Phone: [phone] at: ES - [facility] [address] [id number] Director: Del Santana MD, Phone: [phone] Laboratory - Chemistry and C hemistry - challengeOrdered By: Redd Unger on 07-22-2024 AST [Catalytic activity/Vol] 10 U/L Low 15-37 [facility] Luteinizing Hormoneon 2024 LH < 0.[address] [facility] Comment on above: Order Comment: N N Result Comment: NORMAL REFERENCE RANGES FEMALE FOLLICULAR 1.9 - 26.2 mIU/mL MID-CYCLE PEAK 22.8 - 76.1 mIU/mL LUTEAL 0.6 - 16.6 mIU/mL POST-MENOPAUSAL ON MHT 1.1 - 52.4 mIU/mL NOT ON MHT 8.6 - 61.8 mIU/mL MALE 1.2 - 10.6 mIU/mL Performed By: #### L 3100.5170, L803.3000, L501.77529, L3100.5310, L509.7000, L500.4050, L3300.3500, L509.6000, L501.9520, L501.9310, L3300.1500, L501.6710, L100.0500, L3100.5125 #### [facility] [address] [place], [place], [address] Luteinizing hormone measurem entOrdered By: Redd Unger on 07-22-2024 Luteinizing Hormone < 0.2 mIU/mL [facility] Comment on above: NORMAL REFERENCE RAN GES FEMALE FOLLICULAR 1.9 - 26.2 mIU/mL MID-CYCLE PEAK 22.8 - 76.1 mIU/mL LUTEAL 0.6 - 16.6 mIU/mL POST-MENOPAUSAL ON MHT 1.1 - 52.4 mIU/mL NOT ON MHT 8.6 - 61.8 mIU/mL MALE 1.2 - 10.6 mIU/mL MCV (mean corpuscular volume ) determinationOrdered By: Redd Unger on 07-22-2024 MCV (RBC) [Entitic vol] 87.7 fL 81-99 [facility] Mean corpuscular hemoglobin (MCH) determinationOrdered By: Redd Unger on 07-22-2024 MCH (RBC) [Entitic mass] 29.2 pg 27.0-32.0 [facility] Mean corpuscular hemoglobin concentration (MCHC) determinationOrdered By: Redd Unger on 07-22-2024 MCHC (RBC) [Mass/Vol] 33.3 g/dL 32-36 [facility] Mean platelet volume determi nationOrdered By: Redd Unger on 07-22-2024 Platelet mean volume (Bld) [Entitic vol] 12.9 fL High 6.2-12.0 [facility] Platelet countOrdered By: St toni Unger on 07-22-2024 Platelets (Bld) [#/Vol] 247 10*3/uL 150-450 [facility] Potassium measurementOrdered By: Redd Unger on 07-22-2024 Potassium [Moles/Vol] 3.8 mmol/L 3.5-5.1 [facility] Procalcitoninon 07-22-2024 Procalcitonin < 0.01 Normal 0.00-0.09 [facility] Comment on above: Result Comment: A procalcitonin [...] obtained. Performed By: #### L 3100.5170, L803.3000, L501.11329, L3100.5310, L509.7000, L500.4050, L3300.3500, L509.6000, L501.9520, L501.9310, L3300.1500, L501.6710, L100.0500, L3100.5125 #### [facility] [address] [place], [address] Procalcitonin [Mass/Vol]Orde red By: Redd Unger on 07-22-2024 Procalcitonin < 0.01 ng/mL 0.00-0.09 [facility] Comment on above: A procalcitonin (PCT ) [...] 07-22-2024 RBC (Bld) [#/Vol] 4.63 10*6/uL 4.2-5.4 [facility] Serum anion gap measurementO rdered By: Redd Unger 07-22-2024 Anion gap [Moles/Vol] 5 mmol/L 5-15 [facility] Serum globulin measurementOr dered By: Redd Unger 07-22-2024 Globulin (S) [Mass/Vol] 3.7 g/dL 2.2-4.2 [facility] Serum or plasma alanine tatum otransferase (ALT) measurementOrdered By: Redd Unger 07-22-2024 ALT [Catalytic activity/Vol] 13 U/L 13-56 [facility] Serum or plasma albumin shelly urement (mass/volume)Ordered By: Redd Unger 07-22-2024 Albumin [Mass/Vol] 3.4 g/dL 3.2-5.0 [facility] Serum or plasma alkaline norma sphatase measurementOrdered By: Redd Unger 07-22-2024 ALP [Catalytic activity/Vol] 68 U/L 45-117 [facility] Serum or plasma calcium shelly urement (mass/volume)Ordered By: Redd Unger 07-22-2024 Calcium [Mass/Vol] 8.9 mg/dL 8.5-10.1 [facility] Serum or plasma creatinine m easurement (mass/volume)Ordered By: Redd Unger on 07-22-2024 Creatinine [Mass/Vol] 0.81 mg/dL 0.55-1.02 [facility] Comment on above: The validity of the calculated GFR & GFRAA in patients over 70 years has not been determined. Clinical correlation is essential. Serum or plasma thyroxine (T 4) measurement (mass/volume)Ordered By: Redd Unger on 07-22-2024 T4 [Mass/Vol] 15.5 ug/dL High 4.8-13.9 [facility] Serum or plasma urea nitroge n measurement (mass/volume)Ordered By: Redd Unger on 07-22-2024 Urea nitrogen [Mass/Vol] 13 mg/dL 7-18 [facility] Sodium levelOrdered By: Jian Unger on 07-22-2024 Sodium [Moles/Vol] 139 mmol/L 136-145 [facility] T4 Total, Thyroxinon 025 T4 [Mass/Vol] 15.5 ug/dL High 4.8-13.9 [facility] Comment on above: Order Comment: N N Performed By: #### L 3100.5170, L803.3000, L501.57200, L3100.5310, L509.7000, L500.4050, L3300.3500, L509.6000, L501.9520, L501.9310, L3300.1500, L501.6710, L100.0500, L3100.5125 #### [facility] [address] [place], [place], [id number] TSH QnOrdered By: Redd dickson on 07-22-2024 Thyroid Stimulating Hormone (TSH) 2.510 uIU/mL 0.358-3.740 [facility] Testosterone Free [Mass/Vol] Ordered By: Redd Unger on 07-22-2024 Free Testosterone 0.11 ng/dL 0.10-0.85 [facility] Testosterone Free/Testostero ne.total [Mass fraction]Ordered By: Redd Unger on 07-22-2024 Percent Free Testosterone 1.34 % 0.50-2.80 [facility] Testosterone, totalOrdered B y: Redd Unger on 07-22-2024 Testosterone [Mass/Vol] 8 ng/dL 8-60 [facility] Thyroid Stim Hormone (TSH)on 07-22-2024 TSH 2.510 uIU/mL Normal 0.358-3.740 [facility] Comment on above: Order Comment: N N Performed By: #### L 3100.5170, L803.3000, L501.58980, L3100.5310, L509.7000, L500.4050, L3300.3500, L509.6000, L501.9520, L501.9310, L3300.1500, L501.6710, L100.0500, L3100.5125 #### [facility] [address] [place], [place], [address] Total proteinOrdered By: Lico Unger on 07-22-2024 Protein [Mass/Vol] 7.1 g/dL 6.4-8.2 [facility] White blood cell (WBC) count Ordered By: Redd Unger on 07-22-2024 WBC (Bld) [#/Vol] 6.4 10*3/uL 4.4-11.0 [facility] Body Engineer Office Visit Reporton 03-04-2024 Body Engineer Office Visit Report [facility]'[address], [address] [place] [address] OFFICE VISIT Date of Service: 03/04/24 MR#: [id number] Acct: [id number] Name: AVELINO ANTON Rep #: [id number] : 1990 Provider: Dr. 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 Normal [facility] Basophil percentageOrdered B y: Niru Kemp on 09-25-2023 Cholesterol [Mass/Vol] 194 mg/dL <200 [facility] Comment on above: <200 mg/dL Desirable 200-240 mg/dL Borderline >240 mg/dL High Risk Triglyceride [Mass/Vol] 127 mg/dL <199 [facility] Comment on above: The drugs N-Acetylcy steine and Metamizole may falsely depress this assay.Serum Triglycerides Reference Interval Normal <150 mg/dL Borderline high 150 - 199 mg/dL High 200 - 499 mg/dL Very High > or = 500 mg/dL Laboratory - Chemistry and C hemistry - challengeOrdered By: Niru Kemp on 09-25-2023 Cholesterol in HDL [Mass/Vol] 50 mg/dL >40 [facility] Comment on above: The drugs N-Acetylcy steine and Metamizole may falsely depress this assay. Reference Range HDL <40 mg/dL Low HDL Cholesterol HDL >or= 60 mg/dL High HDL Cholesterol Cholesterol in LDL [Mass/Vol] 119 mg/dL 0-130 [facility] No Panel InformationOrdered By: Niru Kemp on 09-25-2023 VLDL Cholesterol 25 mg/dL 5-40 [facility] Serum or plasma thyroid stim ulating hormone (TSH) measurement (units/volume)Ordered By: Niru Kemp on 09-25-2023 TSH Qn 2.56 uIU/mL 0.358-3.74 [facility] Laboratory - Chemistry and C hemistry - challengeOrdered By: Dr. Kemp on 08-01-2022 Free T4 [Mass/Vol] 1.09 ng/dL 0.76-1.46 [facility] No Panel InformationOrdered By: Dr. Kemp on 08-01-2022 Thyroid Stimulating Hormone (TSH) 1.52 uIU/mL 0.358-3.74 [facility] CNPNon 07-24-2021 CARLOS EDUARDON Telephone (HARIS) -- AVELINO ANTON ([id number]) 1990 F Date Time Provider Department 07/24/21 [...] Date Reviewed: 07/23/2021 Reviewed by: Latanya Matute APRN.MULTI MEDIA SPECIALIST - Fully Assessed Reason for Visit: Results [...] GERD (gastroesophageal reflux disease) [K21.9] 10/08/2011 Contraception [YOW1656] 10/08/2011 Spotting in [O26.859] 06/03/2018 Encounter Status:Closed by CARMELLA FERNANDEZ LPN on 07/26/21 [facility]avez 07-23-2021 CNOV Office Visit (WALKWA ) -- AVELINO ANTON ([id number]) 1990 F Date Time Provider Department 07/23/21 10:50 AM LATANYA MATUTE During your visit today, we recorded the following information about you: Temperature Pulse Respiration Blood pressure 98.5 degrees 94/minute 16/minute 111/75 Weight 95.7 kg Latanya Matute APRN.MULTI MEDIA SPECIALIST 07/23/2021 11:29 AM Signed This note was created using Keenjar[employer]. Subjective Avelino Anton is a 30 year [...] sinus pa (more content not included)... Normal [facility] COVID w FLU A+B Routon 07-23 Influenza A PCR Negative Normal [facility] Comment on above: Performed By: #### C OVFLU #### [place] [phone] Influenza B PCR Negative Normal [facility] Comment on above: Performed By: #### C OVFLU #### [place] [phone] SARS-CoV-2 (COVID-19) RNA LILLIANA+probe Ql (Unsp spec) UPPER RESPIRATORY TRACT SWAB Normal [facility] Comment on above: Performed By: #### C OVFLU #### [place] [address] SARS-CoV-2 (COVID-19) RNA LILLIANA+probe Ql (Unsp spec) Negative for COVID19 (SARS CoV2) by RT-PCR or equivalent method. Normal Negative for COVID19 (SARS CoV2) by RT-PCR or equivalent method. [facility] Comment on above: Result Comment: This test was developed and its performance characteristics determined by [facility] [place]. This test has been authorized by FDA under an Emergency Use Authorization (EUA). This test has been validated in accordance with the FDA's Guidance Document Policy for Diagnostics Testing in Laboratories Certified to Perform High Complexity Testing under CLIA prior to Emergency use Authorization for Coronavirus Disease 2019 during the Public Health Emergency issued on September 03, 2019. Test performed by [facility], [facility] [place], [address] [place], [place] [id number]. Performed By: #### C OVFLU #### [facility] [address] [place] [id number] Vital Signs Date Time Vital Sign Value Performing Clinician Facility 12-29-2022 09:55-0400 Body height 170.[address] Niru Kemp Work Phone: [facility] 12-29-2022 09:54-0400 Body mass index (BMI) [Ratio] 34.9 kg/m2 Dr. Niru Kemp Work Phone: [facility] 12-29-2022 09:54-0400 Body weight 101.[address] Niru Kemp Work Phone: [facility] 12-29-2022 09:54-0400 Diastolic blood pressure 82 mm[Hg] Dr. Niru Kemp Work Phone: [facility] 12-29-2022 09:54-0400 Systolic blood pressure 132 mm[Hg] Dr. Niru Kemp Work Phone: [facility] 07-23-2022 11:10-0500 Body height 170.[address] Niru Kemp Work Phone: [facility] 07-23-2022 11:03-0500 Body mass index (BMI) [Ratio] 34.2 kg/m2 Dr. Niru Kemp Work Phone: [facility] 07-23-2022 11:03-0500 Body weight 98.[address] Niru Kemp Work Phone: [facility] 07-23-2022 11:03-0500 Diastolic blood pressure 84 mm[Hg] Dr. Niru Kemp Work Phone: [facility] 07-23-2022 11:03-0500 Systolic blood pressure 128 mm[Hg] Dr. Niru Kemp Work Phone: [facility] 11-30-2021 22:15-0400 Body height 167.6 cm Alexys Osorio MD Work Phone: [facility] 11-30-2021 22:15-0400 Body mass index (BMI) [Ratio] 25.82 kg/m2 Alexys Osorio MD Work Phone: [facility] 11-30-2021 22:15-0400 Body temperature 98.29 [degF] Alexys Osorio MD Work Phone: [facility] 11-30-2021 22:15-0400 Body weight 72.58 kg Alexys Osorio MD Work Phone: [facility] 11-30-2021 22:15-0400 Diastolic blood pressure 97 mm[Hg] Alexys Osorio MD Work Phone: [facility] 11-30-2021 22:15-0400 Heart rate 106 /min Alexys Osorio MD Work Phone: [facility] 11-30-2021 22:15-0400 Respiratory rate 12 /min Alexys Osorio MD Work Phone: [facility] 11-30-2021 22:15-0400 SaO2% (BldA) [Mass fraction] 98 % Alexys Osorio MD Work Phone: [facility] 11-30-2021 22:15-0400 Systolic blood pressure 145 mm[Hg] Alexys Osorio MD Work Phone: [facility] Encounters Encounter Date Encounter Type Care Provider Facility Start: 09-24-2024 End: 09-24-[address] Niru Kemp MD Work Phone: [facility] Work Phone: Start: 09-24-2024 End: 09-24-[address] Redd Unger MD -Laboratory Work Phone: Start: 09-24-2024 End: 09-24-2024 ambulatory Redd Unger Facility:[facility] Start: 07-22-2024 End: 07-22-[address] Redd Unger MD -Laboratory Work Phone: Start: 07-22-2024 End: 07-22-2024 ambulatory Niru Kemp Facility:[facility] Start: 03-05-2024 Encounter for gynecological examination (general) (routine) with abnormal findings Eva Vásquezvivienne [facility] Start: 03-04-2024 End: 03-04-2024 ambulatory [facility] Facility:[facility] [place] Start: 09-25-2023 End: 09-25-[address] [facility] Work Phone: Start: 09-25-2023 End: 09-25-[address] [facility] Work Phone: Start: 12-29-2022 End: 12-29-[address] Niru Kemp Work Phone: [facility] Work Phone: Start: 12-29-2022 End: 12-29-[address] Niru Kemp Work Phone: [facility], Specimen Work Phone: Start: 12-29-2022 End: 12-29-[address] Niru Kemp Work Phone: [facility] Work Phone: Start: 08-06-2022 End: 08-06-[address] Niru Kemp Work Phone: [facility] Work Phone: Start: 08-06-2022 End: 08-06-[address] Niru Kemp Work Phone: [facility] Start: 08-01-2022 End: 08-01-[address] Niru Kemp Work Phone: [facility] Work Phone: Start: 08-01-2022 End: 08-01-[address] Niru Kemp Work Phone: [facility] Start: 07-23-2022 End: 07-23-[address] Niru Kemp Work Phone: [facility] Start: 11-30-2021 End: 11-30-2021 Emergency department patient visit Alexys Osorio MD Work Phone: [facility] Comment on above: Herpes simplex vulvo vaginitis (Primary Dx) Procedures Date Procedure Procedure Detail Performing Clinician Start: 08-06-[address] Kiran Kemp Work Phone: Start: 08-06-[address] Niru Kemp Work Phone: Plan of Treatment Date Care Activity Detail Author Start: 12-29-2022 Liquid based cervica l cytology screening [facility] Start: 03-06-2022 Influenza vaccination Flu vacc ine (Season Ended) [facility] Start: 12-19-2015 DTaP/Tdap/Td vaccine (7 - Td or Tdap) DTaP/Tdap/Td vaccine (7 - Td or Tdap) [facility] Start: 1997 COVID-19 Vaccine (1) COVID-19 Vaccin e (1) [facility] Path report.final Dx Spec [facility] Payers Date Payer Category Payer Self-pay [id number] 2023 Unknown [id number] 2003 Unknown ANTHEM [id number] Unknown [id number] Unknown [id number] Unknown [id number] Social History Date Type Detail Facility Start: 07-23-2022 End: 05-06-2023 Tobacco smoking status NHIS Tobacco smoking consumption unknown [facility] Start: 1990 Sex Assigned At Not on file [facility] Work Phone: Start: 11-20-2021 End: 12-01-2021 Exposure to SARS-CoV-2 (event) Not sure [facility] Work Phone: Start: 1990 Sex Assigned At Female [facility] Start: 03-04-2024 Tobacco smoking status NHIS Never smoked tobacco (finding) [facility] Start: 09-30-2024 Sex Female (finding) [facility] Hospital Discharge instructions 11-30-2021 InstructionsAttachments Note Date & Type Note Facility 11-30-2021 Hospital Discharg e instructions Alexys Osorio MD - 11/30/2021 Please return to the Emergency Department immediately for new or worsening symptoms or any new concerns. Please follow-up with [your primary care doctor] within the next [3-5] days. The following attachments cannot be sent through Care Everywhere.Genital Herpes ([place])documented in this encounter [facility] Work Phone: Progress note 07-23-2021 Note Date & Type Note Facility 07-23-2021 Note HNO ID: [id number] Author: Latanya Matute APRN.MULTI MEDIA SPECIALIST Service: ? Author Type: Nurse Practitioner Type: [...] or treatment of novel coronavirus infection (COVID-19). [facility] Evaluation note Note Date & Type Note Facility Evaluation note Diagnosis Herpes simplex vulvovaginitis- Primary documented in this encounter [facility] Work Phone: Evaluation note Note Date & Type Note Facility Evaluation note Diagnosis Onset Date Abnormal uterine bleeding (AUB) acute [facility] Work Phone: Evaluation note Note Date & Type Note Facility Evaluation note Diagnosis Onset Date Encounter for routine gyneco logical examination noneactive [facility] Work Phone: Evaluation note Note Date & Type Note Facility Evaluation note No assessment information availa ble [facility] Work Phone: Reason for referral (narrative) Note Date & Type Note Facility Reason for referral (narrative) No reason for referral information available 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 Niru Kemp MD Primary Care Provider Active Brenna Figueroa NP, PIPE BOWL PAINT TRIMMER-C Attending Provider Active Team Status: Inactive Member Role Status Dates Dr. Niru Kemp MD Primary Care Provider, Attendin g Provider Active Team Status: Inactive Member Role Status Dates Dr. Niru Kemp MD Primary Care Provider Active Brenna Figueroa NP, PIPE BOWL PAINT TRIMMER-C Attending Provider Active Team Status: Inactive Member [...] BE BASED ON THE PRIMARY CLINICAL RECORDS. [employer] provides no warranty or guarantee of the accuracy or completeness of information in this document.
[2025-02-11 08:17] LABS: Hematocrit 39.8 % (37-47); Hemoglobin 13.1 g/dL (12.0-15.0); Mean Corp Hgb Conc 32.9 g/dL (32-36); Mean Corpuscular Volume 88.4 fL (81-99); Mean Platelet Vol. 12.3 fl (6.2-12.0); Platelet Count 230 K/mm3 (150-450); RBC Distribution Width CV 11.9 % (11.6-14.6); RBC Distribution Width SD 38.6 fl (35.1-43.9); Red Blood Count 4.50 M/mm3 (4.2-5.4); White Blood Count 7.8 K/mm3 (4.4-11.0)
[2025-02-11 08:52] LABS: AST(SGOT) 17 U/L (<=31); Alanine Aminotransfer ALT/SGPT 10 U/L (<=34); Albumin, Serum 4.3 g/dL (3.5-5.0); Alkaline Phosphatase 83 U/L (35-104); Anion Gap 11 (5-15); BUN 12 mg/dL (4-19); BUN/Creat Ratio 15.2 RATIO (10-20); CORTISOL AM 26.80 ug/dL (6.02-18.40); Calcium,Total 9.2 mg/dL (7.6-11.0); Carbon Dioxide 21.1 mmol/L (21.0-32.0); Chloride 107 mmol/L (98-108); Globulin 2.5 g/dL (2.2-4.2); Glucose 98 mg/dL (70-99); Potassium 4.2 mmol/L (3.3-5.1)
[2025-02-14 13:08] LABS: CRP, High Sensitivity 4.86 mg/L (0.00-3.00); Vitamin D 1,25-Dihydroxy 63.6 pg/mL (24.8-81.5)
== END | disposition home or self-care (01) ==
LOC: LAB 07:39
PROVIDERS: PCP Family Medicine; Referring Provider Obstetrics & Gynecology Reproductive Endocrinology; Visit Provider Obstetrics & Gynecology Reproductive Endocrinology
DX: E88.810 Metabolic syndrome (principal)
CPT/HCPCS: 36415; 80053; 82533; 82652; 83525; 85027; 86141

== ENCOUNTER → 2025-06-03 | Outpatient (CLI) | payer OTHER, SELFPAY ==
--- OUTSIDE RECORDS SUMMARY | 2025-06-03 09:42 | XMS RPT_ITS | CCD ---
Author Organization [facility] Care Team Providers Care Precision Assembly Inspector Name Role Phone Unavailable Primary Care Provider UnavailDr. Niru Garcia Primary Care Provider Dr. Niru Kemp Referring Provider [place] FLASH WELDING MACHINE OPERATOR, MENDEZ Ceja Attending Provider [phone] Dr. Niru Kemp Primary Care Provider Dr. Niru Kemp Referring Provider Dr. Eva Griffith Attending Provider Dr. Niru Kemp MD Primary Care Provider Dr. Redd Unger MD Attending Provider Dr. Redd Unger MD Referring Provider Dr. Niru Kemp MD Primary Care Provider Dr. Redd Unger MD Attending Provider Dr. Redd Unger MD Referring Provider Niru Kemp Primary Care Unavailable Redd Unger Referring Unavailable Redd Unger Attending Unavailable Redd Unger Attending Unavailable Niru Kemp Primary Care Unavailable Redd Unger Referring Unavailable Redd Unger Attending Unavailable Niru Kemp Primary Care Unavailable Redd Unger Referring Unavailable Niru Kemp Referring Unavailable Niru Kemp Primary Care Unavailable Eva Griffith Attending Unavailable Medications Current Medications Medication Drug Class(es) Dates [...] tablet 0 11/30/2021 12/10/2021 Active Desogestrel-Ethinyl Estradiol (11 sources) Progestin, Estrogen Start: 02-06-2025 Desogestrel-Ethinyl Estradiol (Apri) 0.15-0.03 mg tablet Active 1 {tbl} PO daily 84 February 06, 2025 7:05am take only active pills discard inactive start new pack immediately Start: 11-14-2024 End: 02-06-2025 Desogestrel-Ethinyl Estradio l (Apri) 0.15-0.03 mg tablet Discontinued 1 {tbl} PO daily 84 November 14, 2024 11:25am February 06, 2025 7:06am take only active pills discard inactive start new pack immediately Start: 03-04-2024 End: 11-14-2024 Desogestrel-Ethinyl Estradio l (Apri) 0.15-0.03 mg tablet Discontinued 1 {tbl} PO daily 84 March 04, 2024 4:24pm November 14, 2024 11:26am take only active pills discard inactive start new pack immediately Start: 03-04-2024 Desogestrel-Et hinyl Estradiol (Apri) 0.15-0.03 mg tablet Active 1 {tbl} PO daily 84 March 04, 2024 4:24pm take only active pills discard inactive start new pack immediately Start: 11-23-2023 End: 03-04-2024 Desogestrel-Ethinyl Estradio l (Apri) 0.15-0.03 mg tablet Discontinued 1 {tbl} PO daily 84 November 23, 2023 5:20pm March 04, 2024 [...] mg tablet Discontinued 1 {tbl} PO daily 02 07January 01, 2023 12:00am November 23, 2023 4:57pm [...] tablet (20 sources) l-Thyroxine Start: 12-27-2021 End: 11-15-2024 take 1 tablet by mouth once daily Levothyroxine 75 mcg tablet Active 0 .ROUTE .COMPLEX 30 November 15, 2024 11:34am TAKE 1 TABLET BY MOUTH DAILY Multivitamin preparation (4 sources) Start: 12-27-2021 take 1 tablet by mouth once daily Multivitamin Active 1 TABLET PO DAILY December 27, 2021 12:00am Start: 12-27-2021 take 1 tablet by mamadou th once daily Multivitamin Active 1 TABLET PO DAILY December 26, 2021 11:00pm Multivitamin tablet (2 sources) Start: 12-27-2021 Multivitamin t ablet Active 1 {tbl} PO DAILY December 27, 2021 12:00am SUMAtriptan 50 mg oral tablet (6 sources) Serotonin-1b and Serotonin-1d Receptor Agonist Start: 2020 take 1 tablet by mouth once Sumatriptan Succinate (Imitrex) 50 mg tablet Active 50 mg PO ONCE 2020 12:00am Completed/Discontinued Medications Medication Drug Class(es) Dates Sig (Normalized) Sig (Original) amoxicillin 500 mg oral capsule (3 sources) Penicillin-class Antibacterial Start: 05-06-2023 End: 05-16-2023 take 1 capsule by mouth three times daily Amoxicillin 500 mg capsule Discontinued 500 mg PO THREE TIMES A DAY 30 10 0 May 06, 2023 12:00am May 15, 2023 1:00am May 16, 2023 1:26am Norethindrone-E.Es tradiol-Iron (20 sources) Estrogen Start: 01-14-2021 End: 12-27-2021 Norethindrone-E.Es tradiol-Iron (Keri 24 Fe) 1 mg-20 mcg (24)/75 mg (4) tablet Discontinued 1 {tbl} PO DAILY 84 January 14, 2021 3:48pm December 27, 2021 2:13pm Start: 01-14-2021 End: 12-27-2021 Norethindrone-E.Estradiol-Ir on (Keri 24 Fe) 1 mg-20 mcg (24)/75 mg (4) tablet Discontinued 1 {tbl} PO DAILY 84 January 14, 2021 3:48pm December 27, 2021 2:13pm Start: 01-14-2021 End: 12-27-2021 take 1 tablet by mouth once daily Norethindrone-E.Estradiol-Iron (Keri 24 Fe) 1 mg-20 mcg (24)/75 mg (4) tablet Discontinued 1 TABLET PO DAILY 84 January 14, 2021 3:48pm December 27, 2021 2:13pm Start: 01-14-2021 End: 12-27-2021 take 1 tablet by mouth once daily Norethindrone-E.Estradiol-Iron (Keri 24 Fe) 1 mg-20 mcg (24)/75 mg (4) tablet Discontinued 1 TABLET PO DAILY 84 January 14, 2021 2:48pm December 27, 2021 1:13pm Start: 10-29-2020 End: 01-14-2021 Norethindrone-E.Estradiol-Ir on (Keri 24 Fe) 1 mg-20 mcg (24)/75 mg (4) tablet Discontinued 1 {tbl} PO DAILY 84 October 29, 2020 12:19pm January 14, 2021 3:48pm Start: 10-29-2020 End: 01-14-2021 Norethindrone-E.Estradiol-Ir on (Keri [...] (4) tablet Discontinued 1 {tbl} PO DAILY 02 07January 11, 2020 1:56pm October 29, 2020 12:19pm Start: 01-11-2020 End: 10-29-2020 Norethindrone-E.Estradiol-Ir on (Keri [...] 11:00pm January 11, 2020 12:56pm L Norgest/E.Estradiol-E.Estrad (6 sources) Progestin, Estrogen, Progestin-containing Intrauterine Device Start: 02-28-2022 End: 01-01-2023 take 1 tablet by mouth once daily L Norgest/E.Estradiol-E.Estrad (Ashlyna) 0.15 mg-30 mcg (84)/10 mcg (7) tablets,dose pack,3 month Discontinued 1 {tbl} PO DAILY 91 February 28, 2022 12:00am January 01, 2023 [...] / norethindrone acetate 1.5 mg oral tablet (6 sources) Estrogen Start: 12-27-2021 End: 02-28-2022 take [...] pills discard inactive start new pack immediately nortriptyline 10 mg oral capsule (6 sources) Tricyclic Antidepressant Start: 2020 End: 12-27-2021 take 1 capsule by mouth once daily Nortriptyline 10 mg capsule Discontinued 10 mg PO DAILY 2020 12:00am December 27, 2021 1:47pm valACYclovir 500 mg oral tablet (17 sources) Herpesvirus Nucleoside Analog DNA Polymerase Inhibitor, Herpes Simplex Virus Nucleoside Analog DNA Polymerase Inhibitor, Herpes Zoster Virus Nucleoside Analog DNA Polymerase Inhibitor Start: 12-27-2021 End: 07-28-2024 take 1 tablet by mouth once daily Valacyclovir 500 mg tablet Discontinued 0 .ROUTE .COMPLEX 30 June 22, 2023 10:42am July 28, 2024 5:14pm TAKE 1 TABLET BY MOUTH DAILY Problems Problem Classification Problem Date Documented Da te Episodic/Chronic Headache; including migraine (6 sources) Chronic headache disorder; Translations: [Chronic headache disorder] 12-19-2019 Episodic Comment on above: MRI of brain ordered , fu with PCP Menopausal disorders (9 sources) Premature ovarian failure; Translations: [Other primary ovarian failure] Onset: 08-15-2024 07-23-2022 Chronic Comment on above: s/p RGI infertility visit, nl genetic workup per patient, nl MRI of brain, on continuous HRT. failed embryo x 1. Considering seeing [facility] or [place] Other female genital disorders (6 sources) Abnormal uterine bleeding; Translations: [Abnormal uterine and vaginal bleeding, unspecified] 07-23-2022 Chronic Other female genital disorders (2 sources) Abnormal uterine and vaginal bleeding, unspecified; Translations: [Unspecified disorders of menstruation and other abnormal bleeding from female genital tract] 07-23-2022 Chronic Other nutritional; endocrine; and metabolic disorders (1 source) Metabolic syndrome; Translations: [Metabolic syndrome] Onset: 02-17-2025 Chronic Other upper respiratory infections (3 sources) Acute maxillary sinusitis; Translations: [Acute maxillary sinusitis, unspecified] 11-01-2023 Episodic Thyroid disorders (3 sources) Hypothyroidism; Translations: [Hypothyroidism, unspecified] 05-06-2023 Chronic Viral infection (1 source) Herpetic vulvovaginitis; 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, [address] Vitamin D 1,25-Dihydroxyon 0 02-14-2025 VIT D 1,25 DIHY 63.6 pg/mL Normal 24.8-81.5 [facility] Comment on above: Performed By: #### L 3300.3500, L3100.7870, L509.6001 #### [facility] [address] [place], [address] Insulin Levelon 02-12-2025 INSULIN,FASTING 22.2 uIU/mL Normal 2.6-24.9 [facility] Comment on above: Result Comment: Perf ormed at: [address] [id number] Lay Up Operator: Santo Laird PhD, Phone: [phone] Performed By: #### L 3300.3500, [id number], [id number] #### [facility] [address] [place], [place], [id number] Anion gap in Serum or Plasma Ordered By: Redd Unger on 02-11-2025 Anion gap [Moles/Vol] 11 mmol/L 5-15 [facility] BUN/creatinine ratioOrdered By: Redd Unger on 02-11-2025 Urea nitrogen/Creatinine [Mass ratio] 15.2 mg/mg 10-20 [facility] Bilirubin, totalOrdered By: Redd Unger on 02-11-2025 Bilirubin [Mass/Vol] 0.16 mg/dL 0.00-1.30 [facility] C-reactive protein measureme nt by high sensitivity methodOrdered By: Redd Unger on 02-11-2025 C-reactive protein measurement by high sensitivity method 4.86 mg/L High 0.00-3.00 [facility] Comment on above: Relative Risk for Fu ture Cardiovascular Event Low <1.00 Average 1.00 - 3.00 High >3.00Performed at: - [facility] [id number] Director: Estela Dior MD, Phone: [phone] at: [facility] [id number] Director: Santo Laird PhD, Phone: [phone] CBC-Complete Blood Cnt No Di ffon 02-11-2025 Erythrocyte distribution width (RBC) [Ratio] 11.9 % Normal 11.6-14.6 [facility] Comment on above: Performed By: #### L 3300.3500, L3100.7870, L596.600 #### [facility] [address] [place], [address] Hematocrit (Bld) [Volume fraction] 39.8 % Normal 37-47 [facility] Comment on above: Performed By: #### L 3300.3500, L3100.7870, L509.6007 #### [facility] [address] [place], [place], [id number] Hemoglobin (Bld) [Mass/Vol] 13.1 g/dL Normal 12.0-15.0 [facility] Comment on above: Performed By: #### L 3300.3500, L3100.7870, L509.6001 #### [facility] [address] [place], [address] MCH (RBC) [Entitic mass] 29.1 pg Normal 27.0-32.0 [facility] Comment on above: Performed By: #### L 3300.3500, L3100.7870, L509.6001 #### [facility] [address] [place], [address] MCHC (RBC) [Mass/Vol] 32.9 g/dL Normal 32-36 [facility] Comment on above: Performed By: #### L 3300.3500, L3100.7870, L509.6001 #### [facility] [address] [place], [address] MCV (RBC) [Entitic vol] 88.4 fL Normal 81-99 [facility] Comment on above: Performed By: #### L 3300.3500, [id number], L509.6001 #### [facility] [address] [place], [address] Platelet mean volume (Bld) [Entitic vol] 12.3 fL High 6.2-12.0 [facility] Comment on above: Performed By: #### L 3300.3500, L3100.7870, L509.6001 #### [facility] [address] [place], [address] Platelets (Bld) [#/Vol] 230 10*3/uL Normal 150-450 [facility] Comment on above: Performed By: #### L 3300.3500, [id number], L509.6001 #### [facility] [address] [place], [address] RBC (Bld) [#/Vol] 4.50 10*6/uL Normal 4.2-5.4 [facility] Comment on above: Performed By: #### L 3300.3500, [id number], L509.6001 #### [facility] [address] [place], [address] RDW SD 38.6 fl Normal 35.1-43.9 [facility] Comment on above: Performed By: #### L 3300.3500, [id number], L509.6001 #### [facility] [address] [place], [address] WBC (Bld) [#/Vol] 7.8 10*3/uL Normal 4.4-11.0 [facility] Comment on above: Performed By: #### L 3300.3500, L3100.7870, L509.6001 #### [facility] [address] [place], [address] Carbon dioxide, total [Moles /volume] in Central venous bloodOrdered By: Redd Unger on 02-11-2025 CO2 [Moles/Vol] 21.1 mmol/L 21.0-32.0 [facility] Chloride assayOrdered By: St toni Unger on 02-11-2025 Chloride [Moles/Vol] 107 mmol/L 98-108 [facility] Comprehensive Metabolic Prof ilon 02-11-2025 Albumin [Mass/Vol] 4.3 g/dL Normal 3.5-5.0 [facility] Comment on above: Performed By: #### L 3300.3500, [id number], L509.6001 #### [facility] [address] [place], [address] Albumin/Globulin [Mass ratio] 1.7 {ratio} Normal 0.9-2.4 [facility] Comment on above: Performed By: #### L 3300.3500, [id number], L509.6001 #### [facility] [address] [place], [address] ALK PHOS 83 U/L Normal 35-104 [facility] Comment on above: Performed By: #### L 3300.3500, [id number], L509.6001 #### [facility] [address] [place], [address] ALT [Catalytic activity/Vol] 10 U/L Normal <=34 [facility] Comment on above: Performed By: #### L 3300.3500, L3100.7870, L509.6001 #### [facility] [address] [place], [address] AST [Catalytic activity/Vol] 17 U/L Normal <=31 [facility] Comment on above: Performed By: #### L 3300.3500, [id number], L509.6001 #### [facility] [address] [place], [address] Bilirubin [Mass/Vol] 0.16 mg/dL Normal 0.00-1.30 [facility] Comment on above: Performed By: #### L 3300.3500, [id number], L509.6001 #### [facility] [address] [place], [address] BUN/CRE 15.2 RATIO Normal 10-20 [facility] Comment on above: Performed By: #### L 3300.3500, [id number], L509.6001 #### [facility] [address] [place], [address] Calcium [Mass/Vol] 9.2 mg/dL Normal 7.6-11.0 [facility] Comment on above: Performed By: #### L 3300.3500, [id number], L509.6001 #### [facility] [address] [place], [address] Chloride [Moles/Vol] 107 mmol/L Normal 98-108 [facility] Comment on above: Performed By: #### L 3300.3500, [id number], L509.6001 #### [facility] [address] [place], [address] CO2 [Moles/Vol] 21.1 mmol/L Normal 21.0-32.0 [facility] Comment on above: Performed By: #### L 3300.3500, L3100.7870, L509.6001 #### [facility] [address] [place], [address] Creatinine [Mass/Vol] 0.80 mg/dL Normal 0.70-1.20 [facility] Comment on above: Performed By: #### L 3300.3500, [id number], L509.6001 #### [facility] [address] [place], [address] GAP 11 Normal 5-15 [facility] Comment on above: Performed By: #### L 3300.3500, L3100.7870, L509.6001 #### [facility] [address] [place], [address] GFR/1.73 sq M.predicted among non-blacks MDRD (S/P/Bld) [Vol rate/Area] 100 mL/min/{1.73_m2} Normal >60 [facility] Comment on above: Result Comment: mL/m in/1.73m2 CKD-EPI Creatinine Equation (2020) Performed By: #### L 3300.3500, L3100.7870, L509.6001 #### [facility] [address] [place], [address] Globulin (S) [Mass/Vol] 2.5 g/dL Normal 2.2-4.2 [facility] Comment on above: Performed By: #### L 3300.3500, L3100.7870, L509.6001 #### [facility] [address] [place], [address] Glucose [Mass/Vol] 98 mg/dL Normal 70-99 [facility] Comment on above: Performed By: #### L 3300.3500, [id number], L509.6001 #### [facility] [address] [place], [address] Potassium [Moles/Vol] 4.2 mmol/L Normal 3.3-5.1 [facility] Comment on above: Performed By: #### L 3300.3500, L3100.7870, L509.6001 #### [facility] [address] [place], [address] Sodium [Moles/Vol] 138 mmol/L Normal 133-145 [facility] Comment on above: Performed By: #### L 3300.3500, L3100.7870, L509.6001 #### [facility] [address] [place], [address] T PROT 6.8 g/dL Normal 5.9-8.4 [facility] Comment on above: Performed By: #### L 3300.3500, [id number], L509.6001 #### [facility] [address] [place], [address] Urea nitrogen [Mass/Vol] 12 mg/dL Normal 4-19 [facility] Comment on above: Performed By: #### L 3300.3500, [id number], L509.6001 #### [facility] [address] [place], [address] Erythrocyte distribution wid th ratioOrdered By: Redd Unger on 02-11-2025 Erythrocyte distribution width (RBC) [Ratio] 11.9 % 11.6-14.6 [facility] Erythrocyte distribution wid th standard deviationOrdered By: Redd Unger on 02-11-2025 Erythrocyte distribution width (RBC) [Ratio] 38.6 fl 35.1-43.9 [facility] Glomerular filtration rate ( GFR) estimation/1.73 sq m using serum, plasma, or whole bOrdered By: Redd Unger on 02-11-2025 GFR/1.73 sq M.predicted among non-blacks MDRD (S/P/Bld) [Vol rate/Area] 100 mL/min/{1.73_m2} >60 [facility] Comment on above: mL/min/1.73m2 CKD-EP I Creatinine Equation (2020) Hematocrit Auto (Bld) [Volum e fraction]Ordered By: Redd Unger on 02-11-2025 Hematocrit (Bld) [Volume fraction] 39.8 % 37-47 [facility] Hemoglobin measurementOrdere d By: Redd Unger on 02-11-2025 Hemoglobin (Bld) [Mass/Vol] 13.1 g/dL 12.0-15.0 [facility] L509.6001on 02-11-2025 CORTISOL 26.80 ug/dL High 6.02-18.40 [facility] Comment on above: Order Comment: B Performed By: #### L 3300.3500, L3100.7870, L509.6001 #### [facility] [address] [facility] [place], [place], [address] Laboratory - Chemistry and C hemistry - challengeOrdered By: Redd Unger on 02-11-2025 AST [Catalytic activity/Vol] 17 U/L <32 [facility] MCV (mean corpuscular volume ) determinationOrdered By: Redd Unger on 02-11-2025 MCV (RBC) [Entitic vol] 88.4 fL 81-99 [facility] Mean corpuscular hemoglobin (MCH) determinationOrdered By: Redd Unger on 02-11-2025 MCH (RBC) [Entitic mass] 29.1 pg 27.0-32.0 [facility] Mean corpuscular hemoglobin concentration (MCHC) determinationOrdered By: Redd Unger on 02-11-2025 MCHC (RBC) [Mass/Vol] 32.9 g/dL 32-36 [facility] Mean platelet volume determi nationOrdered By: Redd Unger on 02-11-2025 Platelet mean volume (Bld) [Entitic vol] 12.3 fL High 6.2-12.0 [facility] Platelet countOrdered By: St toni Unger on 02-11-2025 Platelets (Bld) [#/Vol] 230 10*3/uL 150-450 [facility] Potassium measurement (mass/ volume)Ordered By: Redd Unger on 02-11-2025 Potassium (Unsp spec) [Mass/Vol] 4.2 mmol/L 3.3-5.1 [facility] RBC Auto (Bld) [#/Vol]Ordere d By: Redd Unger on 02-11-2025 RBC (Bld) [#/Vol] 4.50 10*6/uL 4.2-5.4 [facility] Serum creatinine measurement (mass/volume)Ordered By: Redd Unger on 02-11-2025 Creatinine [Mass/Vol] 0.80 mg/dL 0.70-1.20 [facility] Serum globulin measurementOr dered By: Redd Unger on 02-11-2025 Globulin (S) [Mass/Vol] 2.5 g/dL 2.2-4.2 [facility] Serum glucose measurement (m ass/volume)Ordered By: Redd Unger on 02-11-2025 Glucose [Mass/Vol] 98 mg/dL 70-99 [facility] Serum or plasma alanine tatum otransferase (ALT) measurementOrdered By: Redd Unger on 02-11-2025 ALT [Catalytic activity/Vol] 10 U/L <35 [facility] Serum or plasma albumin shelly urement (mass/volume)Ordered By: Redd Unger on 02-11-2025 Albumin [Mass/Vol] 4.3 g/dL 3.5-5.0 [facility] Serum or plasma albumin/glob ulin mass ratioOrdered By: Redd Unger on 02-11-2025 Albumin/Globulin [Mass ratio] 1.7 {ratio} 0.9-2.4 [facility] Serum or plasma alkaline norma sphatase measurementOrdered By: Redd Unger on 02-11-2025 ALP [Catalytic activity/Vol] 83 U/L 35-104 [facility] Serum or plasma calcitriol m easurement (mass/volume)Ordered By: Redd Unger on 02-11-2025 1,25-dihydroxyvitamin D3 [Mass/Vol] 63.6 pg/mL 24.8-81.5 [facility] Serum or plasma calcium shelly urement (mass/volume)Ordered By: Redd Unger on 02-11-2025 Calcium [Mass/Vol] 9.2 mg/dL 7.6-11.0 [facility] Serum or plasma cortisol bayron surement (mass/volume)Ordered By: Redd Unger on 02-11-2025 Cortisol [Mass/Vol] 26.80 ug/dL High 6.02-18.40 [facility] Serum or plasma insulin shelly urement (mass/volume)Ordered By: Redd Unger on 02-11-2025 Insulin [Mass/Vol] 22.2 uIU/mL 2.6-24.9 [facility] Comment on above: Performed at: [facility] [place] [id number] Director: Santo Laird PhD, Phone: [phone] Serum or plasma urea nitroge n measurement (mass/volume)Ordered By: Redd Unger on 02-11-2025 Urea nitrogen [Mass/Vol] 12 mg/dL 4-19 [facility] Sodium levelOrdered By: Jian Unger on 02-11-2025 Sodium [Moles/Vol] 138 mmol/L 133-145 [facility] Total proteinOrdered By: Lico Unger on 02-11-2025 Protein [Mass/Vol] 6.8 g/dL 5.9-8.4 [facility] White blood cell (WBC) count Ordered By: Redd Unger on 02-11-2025 WBC (Bld) [#/Vol] 7.8 10*3/uL 4.4-11.0 [facility] CRP, High Sensitivity [id number] on 09-25-2024 CRP, HIGH SENS 4.31 mg/L High 0.00-3.00 [facility] Comment on above: Result Comment: Rela tive Risk for Future Cardiovascular Event Low <1.00 Average 1.00 - 3.00 High >3.00 Performed at: [facility] [id number] Lay Up Operator: Santo Laird PhD, Phone: [phone] Performed By: #### L 3300.3500, L3062.9466, L563.6009 #### [facility] [address] [place], [address] Insulin Levelon 09-25-2024 INSULIN,FASTING 17.7 uIU/mL Normal 2.6-24.9 [facility] Comment on above: Result Comment: Perf ormed at: [facility] [id number] Lay Up Operator: Santo Laird PhD, Phone: [phone] Performed By: #### L 3300.3500, L3782.2338, I611.9290 #### [facility] [address] [place], [place], [id number] C-reactive protein measureme nt by high sensitivity methodOrdered By: Redd Unger on 09-24-2024 C-Reactive Protein High Sensitivity 4.31 mg/L High 0.00-3.00 [facility] Comment on above: Relative Risk for Fu ture Cardiovascular Event Low <1.00 Average 1.00 - 3.00 High >3.00Performed at: [facility] [address] [id number] Director: Santo Laird PhD, Phone: [phone] Insulin [Mass/Vol]Ordered By : Redd Unger on 09-24-2024 Insulin Level 17.7 uIU/mL 2.6-24.9 [facility] Comment on above: Performed at: [facility] [id number] Director: Santo Laird PhD, Phone: [phone] l509.6001on 09-24-2024 CORTISOL 21.20 ug/dL High 6.02-18.40 [facility] Comment on above: Performed By: #### L 3300.3500, L3100.7870, L509.6001 #### [facility] [address] [place], [address] No Panel InformationOrdered By: Redd Unger on 09-24-2024 Cortisol AM Sample 21.20 ug/dL High 6.02-18.40 [facility] Antimullerian Hormone, Serum on 07-27-2024 AMH, SERUM < 0.015 Normal . [facility] Comment on above: Order Comment: NN Result Comment: For assays employing antibodies, the possibility exists for interference by heterophile antibodies in the samples.1 1.Prashant Stroud. Interferences in Immunoassays - still a threat. Clin. Chem. 2000; 46: 6181-7429. This test was developed and its performance characteristics determined by [employer]. It has not been cleared or approved by the Food and Drug Administration. Reference Range: Females 31 - 35y: 0.66 - 8.75 Median 3.00 AMH concentrations of >= 1.06 ng/mL is correlated with a better response to ovarian stimulation, produced more retrievable oocytes and higher odds of live according to Gleicher et al. Fertility and Sterility. 2010: 94:0928-5029. The current AMH test method correlates with [...] AMH-secreting ovarian tumor. Performed By: #### L 3300.3500, L3100.7870, L509.6001 #### [facility] [address] [place], [address] DHEA Sulfateon 07-27-2024 DHEA SULFATE 109.0 ug/dL Normal 84.8-378.0 [facility] Comment on above: Order Comment: NN Performed By: #### L 3300.3500, L3100.7870, L509.6001 #### [facility] [facility] [address] [place], [address] Insulin Levelon 07-27-2024 INSULIN,FASTING 18.2 uIU/mL Normal 2.6-24.9 [facility] Comment on above: Order Comment: NN Result Comment: Perf ormed at: - [facility] [address] [id number] Lay Up Operator: Santo Laird PhD, Phone: [phone] Performed at: - [facility] [id number] Lay Up Operator: Estela Dior MD, Phone: [phone] Performed at: [facility] [address] [place] [id number] Lay Up Operator: Del Santana MD, Phone: [phone] Performed By: #### L 3300.3500, L3100.7870, L509.6001 #### [facility] [address] [place], [address] Testosterone, Total / Freeon 07-27-2024 TESTOSTER,FREE 0.11 ng/dL Normal 0.10-0.85 [facility] Comment on above: Order Comment: NN Performed By: #### L 3300.3500, L3100.7870, L509.6001 #### [facility] [address] [place], [address] TESTOSTER,TOTAL 8 ng/dL Normal 8-60 [facility] Comment on above: Order Comment: NN Performed By: #### L 3300.3500, L3100.7870, L509.6001 #### [facility] [address] [place], [address] TESTOSTERONE,%F 1.34 Normal 0.50-2.80 [facility] Comment on above: Order Comment: NN Performed By: #### L 3300.3500, L3100.7870, L509.6001 #### [facility] [address] [place], [address] Albumin to globulin ratioOrd ered By: Redd Unger on 07-22-2024 Albumin/Globulin [Mass ratio] 0.9 {ratio} 0.9-2.4 [facility] Bilirubin, totalOrdered By: Redd Unger on 07-22-2024 Bilirubin [Mass/Vol] 0.30 mg/dL 0.20-1.00 [facility] Comment on above: For patients on eltr ombopag therapy, use of Dimension [place] TBIL is not recommended. Blood urea nitrogen (BUN)/cr eatinine ratioOrdered By: Redd Unger on 07-22-2024 Urea nitrogen/Creatinine [Mass ratio] 16.0 mg/mg 10-20 [facility] C-reactive protein measureme nt by high sensitivity methodOrdered By: Redd Unger on 07-22-2024 C-Reactive Protein Extended Range 4.84 mg/L High 0.0-3.0 [facility] Comment on above: C-Reactive Protein ( CRP) provides useful information for thediagnosis, therapy and monitoring of inflammatory processesand associated diseases. For the evaluation of Relative Riskfor Cardiovascular Disease, a High Sensitivity CRP (HSCRP)should be ordered. CBC-Complete Blood Cnt No Di ffon 07-22-2024 Erythrocyte distribution width (RBC) [Ratio] 12.0 % Normal 11.6-14.6 [facility] Comment on above: Performed By: #### L 3100.5170, L803.3000, L501.47449, L3100.5310, L509.7000, L500.4050, L3300.3500, L509.6000, L501.9520, L501.9310, L3300.1500, L501.6710, L100.0500, L3100.5125 #### [facility] [address] [place], [address] Hematocrit (Bld) [Volume fraction] 40.6 % Normal 37-47 [facility] Comment on above: Performed By: #### L 3100.5170, L803.3000, L501.47551, L3100.5310, L509.7000, L500.4050, L3300.3500, L509.6000, L501.9520, L501.9310, L3300.1500, L501.6710, L100.0500, L3100.5125 #### [facility] [address] [place], [address] Hemoglobin (Bld) [Mass/Vol] 13.5 g/dL Normal 12.0-15.0 [facility] Comment on above: Performed By: #### L 3100.5170, L803.3000, L501.39068, L3100.5310, L509.7000, L500.4050, L3300.3500, L509.6000, L501.9520, L501.9310, L3300.1500, L501.6710, L100.0500, L3100.5125 #### [facility] [address] [place], [place], [phone] (633) MCH (RBC) [Entitic mass] 29.2 pg Normal 27.0-32.0 [facility] Comment on above: Performed By: #### L 3100.5170, L803.3000, L501.98118, L3100.5310, L509.7000, L500.4050, L3300.3500, L509.6000, L501.9520, L501.9310, L3300.1500, L501.6710, L100.0500, L3100.5125 #### [facility] [address] [facility] [place], [address] MCHC (RBC) [Mass/Vol] 33.3 g/dL Normal 32-36 [facility] Comment on above: Performed By: #### L 3100.5170, L803.3000, L501.74617, L3100.5310, L509.7000, L500.4050, L3300.3500, L509.6000, L501.9520, L501.9310, L3300.1500, L501.6710, L100.0500, L3100.5125 #### [facility] [address] [place], [address] MCV (RBC) [Entitic vol] 87.7 fL Normal 81-99 [facility] Comment on above: Performed By: #### L 3100.5170, L803.3000, L501.90391, L3100.5310, L509.7000, L500.4050, L3300.3500, L509.6000, L501.9520, L501.9310, L3300.1500, L501.6710, L100.0500, L3100.5125 #### [facility] [address] [place], [address] Platelet mean volume (Bld) [Entitic vol] 12.9 fL High 6.2-12.0 [facility] Comment on above: Performed By: #### L 3100.5170, L803.3000, L501.00645, L3100.5310, L509.7000, L500.4050, L3300.3500, L509.6000, L501.9520, L501.9310, L3300.1500, L501.6710, L100.0500, L3100.5125 #### [facility] [address] [place], [address] Platelets (Bld) [#/Vol] 247 10*3/uL Normal 150-450 [facility] Comment on above: Performed By: #### L 3100.5170, L803.3000, L501.61013, L3100.5310, L509.7000, L500.4050, L3300.3500, L509.6000, L501.9520, L501.9310, L3300.1500, L501.6710, L100.0500, L3100.5125 #### [facility] [address] [place], [address] RBC (Bld) [#/Vol] 4.63 10*6/uL Normal 4.2-5.4 [facility] Comment on above: Performed By: #### L 3100.5170, L803.3000, L501.50493, L3100.5310, L509.7000, L500.4050, L3300.3500, L509.6000, L501.9520, L501.9310, L3300.1500, L501.6710, L100.0500, L3100.5125 #### [facility] [address] [place], [place], [id number] RDW SD 38.7 fl Normal 35.1-43.9 [facility] Comment on above: Performed By: #### L 3100.5170, L803.3000, L501.44351, L3100.5310, L509.7000, L500.4050, L3300.3500, L509.6000, L501.9520, L501.9310, L3300.1500, L501.6710, L100.0500, L3100.5125 #### [facility] [address] [place], [address] WBC (Bld) [#/Vol] 6.4 10*3/uL Normal 4.4-11.0 [facility] Comment on above: Performed By: #### L 3100.5170, L803.3000, L501.76368, L3100.5310, L509.7000, L500.4050, L3300.3500, L509.6000, L501.9520, L501.9310, L3300.1500, L501.6710, L100.0500, L3100.5125 #### [facility] [address] [place], [place], [id number] CORTISOL SERUMon 07-22-2024 CORTISOL 28.80 ug/dL High 3.44-22.45 [facility] Comment on above: Result Comment: Adul t (AM) 5.27 - 22.45 ug/dL Adult (PM) 3.44 - 16.76 ug/dL Performed By: #### L 3100.5170, L803.3000, L501.87358, L3100.5310, L509.7000, L500.4050, L3300.3500, L509.6000, L501.9520, L501.9310, L3300.1500, L501.6710, L100.0500, L3100.5125 #### [facility] [address] [facility] [place], [place], [id number] CRPon 07-22-2024 C-REACTIVE PROT 4.84 mg/L High 0.0-3.0 [facility] Comment on above: Order Comment: N N Result Comment: C-Re active Protein (CRP) provides useful information for the diagnosis, therapy and monitoring of inflammatory processes and associated diseases. For the evaluation of Relative Risk for Cardiovascular Disease, a High Sensitivity CRP (HSCRP) should be ordered. Performed By: #### L 3100.5170, L803.3000, L501.35611, L3100.5310, L509.7000, L500.4050, L3300.3500, L509.6000, L501.9520, L501.9310, L3300.1500, L501.6710, L100.0500, L3100.5125 #### [facility] [address] [facility] [place], [address] Carbon dioxide measurementOr dered By: Redd Unger on 07-22-2024 CO2 [Moles/Vol] 22.0 mmol/L 21.0-32.0 [facility] Chloride measurementOrdered By: Redd Unger on 07-22-2024 Chloride [Moles/Vol] 112 mmol/L High 98-107 [facility] Comprehensive Metabolic Prof ilon 07-22-2024 Albumin [Mass/Vol] 3.4 g/dL Normal 3.2-5.0 [facility] Comment on above: Order Comment: N N Performed By: #### L 3100.5170, L803.3000, L501.37134, L3100.5310, L509.7000, L500.4050, L3300.3500, L509.6000, L501.9520, L501.9310, L3300.1500, L501.6710, L100.0500, L3100.5125 #### [facility] [address] [place], [place], [id number] Albumin/Globulin [Mass ratio] 0.9 {ratio} Normal 0.9-2.4 [facility] Comment on above: Order Comment: N N Performed By: #### L 3100.5170, L803.3000, L501.12957, L3100.5310, L509.7000, L500.4050, L3300.3500, L509.6000, L501.9520, L501.9310, L3300.1500, L501.6710, L100.0500, L3100.5125 #### [facility] [address] [facility] [place], [place], [id number] ALK P 68 U/L Normal 45-117 [facility] Comment on above: Order Comment: N N Performed By: #### L 3100.5170, L803.3000, L501.36457, L3100.5310, L509.7000, L500.4050, L3300.3500, L509.6000, L501.9520, L501.9310, L3300.1500, L501.6710, L100.0500, L3100.5125 #### [facility] [address] [facility] [place], [place], [id number] ALT [Catalytic activity/Vol] 13 U/L Normal 13-56 [facility] Comment on above: Order Comment: N N Performed By: #### L 3100.5170, L803.3000, L501.27099, L3100.5310, L509.7000, L500.4050, L3300.3500, L509.6000, L501.9520, L501.9310, L3300.1500, L501.6710, L100.0500, L3100.5125 #### [facility] [address] [place], [place], [id number] AST [Catalytic activity/Vol] 10 U/L Low 15-37 [facility] Comment on above: Order Comment: N N Performed By: #### L 3100.5170, L803.3000, L501.33136, L3100.5310, L509.7000, L500.4050, L3300.3500, L509.6000, L501.9520, L501.9310, L3300.1500, L501.6710, L100.0500, L3100.5125 #### [facility] [address] [place], [place], [id number] Bilirubin [Mass/Vol] 0.30 mg/dL Normal 0.20-1.00 [facility] Comment on above: Order Comment: N N Result Comment: For patients on eltrombopag therapy, use of Dimension [place] TBIL is not recommended. Performed By: #### L 3100.5170, L803.3000, L501.31990, L3100.5310, L509.7000, L500.4050, L3300.3500, L509.6000, L501.9520, L501.9310, L3300.1500, L501.6710, L100.0500, L3100.5125 #### [facility] [address] [place], [address] BUN/CRE 16.0 RATIO Normal 10-20 [facility] Comment on above: Order Comment: N N Performed By: #### L 3100.5170, L803.3000, L501.51299, L3100.5310, L509.7000, L500.4050, L3300.3500, L509.6000, L501.9520, L501.9310, L3300.1500, L501.6710, L100.0500, L3100.5125 #### [facility] [address] [place], [address] CA,Total 8.9 mg/dL Normal 8.5-10.1 [facility] Comment on above: Order Comment: N N Performed By: #### L 3100.5170, L803.3000, L501.07152, L3100.5310, L509.7000, L500.4050, L3300.3500, L509.6000, L501.9520, L501.9310, L3300.1500, L501.6710, L100.0500, L3100.5125 #### [facility] [address] [place], [address] Chloride [Moles/Vol] 112 mmol/L High 98-107 [facility] Comment on above: Order Comment: N N Performed By: #### L 3100.5170, L803.3000, L501.39186, L3100.5310, L509.7000, L500.4050, L3300.3500, L509.6000, L501.9520, L501.9310, L3300.1500, L501.6710, L100.0500, L3100.5125 #### [facility] [address] [facility] [place], [address] CO2 [Moles/Vol] 22.0 mmol/L Normal 21.0-32.0 [facility] Comment on above: Order Comment: N N Performed By: #### L 3100.5170, L803.3000, L501.85343, L3100.5310, L509.7000, L500.4050, L3300.3500, L509.6000, L501.9520, L501.9310, L3300.1500, L501.6710, L100.0500, L3100.5125 #### [facility] [address] [place], [address] Creatinine [Mass/Vol] 0.81 mg/dL Normal 0.55-1.02 [facility] Comment on above: Order Comment: N N Result Comment: The validity of the calculated GFR GFRAA in patients over 70 years has not been determined. Clinical correlation is essential. Performed By: #### L 3100.5170, L803.3000, L501.05033, L3100.5310, L509.7000, L500.4050, L3300.3500, L509.6000, L501.9520, L501.9310, L3300.1500, L501.6710, L100.0500, L3100.5125 #### [facility] [address] [place], [address] (428) EST GFR - AA 106 mL/min Normal >60 [facility] Comment on above: Order Comment: N N Result Comment: Afri can Tun[place]ian GFR Calc Performed By: #### L 3100.5170, L803.3000, L501.97645, L3100.5310, L509.7000, L500.4050, L3300.3500, L509.6000, L501.9520, L501.9310, L3300.1500, L501.6710, L100.0500, L3100.5125 #### [facility] [address] [place], [address] GAP 5 Normal 5-15 [facility] Comment on above: Order Comment: N N Performed By: #### L 3100.5170, L803.3000, L501.34635, L3100.5310, L509.7000, L500.4050, L3300.3500, L509.6000, L501.9520, L501.9310, L3300.1500, L501.6710, L100.0500, L3100.5125 #### [facility] [address] [facility] [place], [address] GFR/1.73 sq M.predicted among non-blacks MDRD (S/P/Bld) [Vol rate/Area] 87 mL/min/{1.73_m2} Normal >60 [facility] Comment on above: Order Comment: N N Result Comment: Non- GFR Calc Performed By: #### L 3100.5170, L803.3000, L501.03594, L3100.5310, L509.7000, L500.4050, L3300.3500, L509.6000, L501.9520, L501.9310, L3300.1500, L501.6710, L100.0500, L3100.5125 #### [facility] [address] [place], [address] Globulin (S) [Mass/Vol] 3.7 g/dL Normal 2.2-4.2 [facility] Comment on above: Order Comment: N N Performed By: #### L 3100.5170, L803.3000, L501.37315, L3100.5310, L509.7000, L500.4050, L3300.3500, L509.6000, L501.9520, L501.9310, L3300.1500, L501.6710, L100.0500, L3100.5125 #### [facility] [address] [place], [address] Glucose [Mass/Vol] 89 mg/dL Normal 74-106 [facility] Comment on above: Order Comment: N N Performed By: #### L 3100.5170, L803.3000, L501.15996, L3100.5310, L509.7000, L500.4050, L3300.3500, L509.6000, L501.9520, L501.9310, L3300.1500, L501.6710, L100.0500, L3100.5125 #### [facility] [address] [place], [address] Potassium [Moles/Vol] 3.8 mmol/L Normal 3.5-5.1 [facility] Comment on above: Order Comment: N N Performed By: #### L 3100.5170, L803.3000, L501.49762, L3100.5310, L509.7000, L500.4050, L3300.3500, L509.6000, L501.9520, L501.9310, L3300.1500, L501.6710, L100.0500, L3100.5125 #### [facility] [address] [facility] [place], [place], [phone] (563) Sodium [Moles/Vol] 139 mmol/L Normal 136-145 [facility] Comment on above: Order Comment: N N Performed By: #### L 3100.5170, L803.3000, L501.24280, L3100.5310, L509.7000, L500.4050, L3300.3500, L509.6000, L501.9520, L501.9310, L3300.1500, L501.6710, L100.0500, L3100.5125 #### [facility] [address] [place], [place], [id number] (917) T PROT 7.1 g/dL Normal 6.4-8.2 [facility] Comment on above: Order Comment: N N Performed By: #### L 3100.5170, L803.3000, L501.44159, L3100.5310, L509.7000, L500.4050, L3300.3500, L509.6000, L501.9520, L501.9310, L3300.1500, L501.6710, L100.0500, L3100.5125 #### [facility] [address] [facility] [place], [place], [id number] (491) Urea nitrogen [Mass/Vol] 13 mg/dL Normal 7-18 [facility] Comment on above: Order Comment: N N Performed By: #### L 3100.5170, L803.3000, L501.45188, L3100.5310, L509.7000, L500.4050, L3300.3500, L509.6000, L501.9520, L501.9310, L3300.1500, L501.6710, L100.0500, L3100.5125 #### [facility] [place], [address] Cortisol [Mass/Vol]Ordered B y: Redd Unger on 07-22-2024 Cortisol 28.80 ug/dL High 3.44-22.45 [facility] Comment on above: Adult (AM) 5.27 - 22 .45 ug/dL Adult (PM) 3.44 - 16.76 ug/dL Dehydroepiandrosterone sulfa te (DHEA-S) measurementOrdered By: Redd Unger on 07-22-2024 Dehydroepiandrosterone Sulfate 109.0 ug/dL 84.8-378.0 [facility] Erythrocyte distribution wid th ratioOrdered By: Redd Unger on 07-22-2024 Erythrocyte distribution width (RBC) [Ratio] 12.0 % 11.6-14.6 [facility] Erythrocyte distribution wid th standard deviationOrdered By: Redd Unger on 07-22-2024 Erythrocyte distribution width (RBC) [Entitic vol] 38.7 fL 35.1-43.9 [facility] Estimated glomerular filtrat ion rate (GFR) AmericanOrdered By: Redd Unger on 07-22-2024 Estimated GFR (MDRD) Amer 106 mL/min >60 [facility] Comment on above: GFR Calc Flecainide [Mass/Vol]Ordered By: Redd Unger on 07-22-2024 Anti-Mullerian Hormone < 0.015 ng/mL . [facility] Comment on above: For assays employing antibodies, the possibility exists forinterference by heterophile antibodies in the samples.11.Prashant Laureano Interferences in Immunoassays - still a threat. Clin. Chem. 2000; 46: 0153-4772.This test was developed and its performance characteristicsdetermined by [employer]. It has not been cleared or approvedby the Food and Drug Administration.Reference Range:Females 31 - 35y: 0.66 - 8.75Median 3.00AMH concentrations of >= 1.06 ng/mL is correlated with abetter response to ovarian stimulation, produced moreretrievable oocytes and higher odds of live accordingto Chaitanya leach al. Fertility and Sterility. 2010:94:2521-2640. The current AMH test method correlates withthe [...] Hormone on 07-22-2024 FSH 0.8 mIU/mL Normal [facility] Comment on above: Order Comment: NN Result Comment: NORMAL REFERENCE RANGES FEMALE FOLLICULAR 2.3 - 12.6 mIU/mL MID-CYCLE PEAK 5.2 - 17.5 mIU/mL LUTEAL 1.7 - 12.9 mIU/mL POST-MENOPAUSAL ON MHT 5.9 - 72.8 mIU/mL NOT ON MHT 12.7 - 132.2 mlU/mL MALE 0.7 - 10.8 mIU/mL Performed By: #### L 3300.3500, L3100.7870, L509.6001 #### [facility] [address] [place], [place], [address] Follicle stimulating hormone (FSH) levelOrdered By: Redd Unger on 07-22-2024 Follicle Stimulating Hormone 0.8 mIU/mL [facility] Comment on above: NORMAL REFERENCE RAN GES FEMALE FOLLICULAR 2.3 - 12.6 mIU/mL MID-CYCLE PEAK 5.2 - 17.5 mIU/mL LUTEAL 1.7 - 12.9 mIU/mL POST-MENOPAUSAL ON MHT 5.9 - 72.8 mIU/mL NOT ON MHT 12.7 - 132.2 mlU/mL MALE 0.7 - 10.8 mIU/mL Free T3on 07-22-2024 Free T3 [Mass/Vol] 2.7 pg/mL Normal 2.18-3.98 [facility] Comment on above: Order Comment: N N Performed By: #### L 3100.5170, L803.3000, L501.26503, L3100.5310, L509.7000, L500.4050, L3300.3500, L509.6000, L501.9520, L501.9310, L3300.1500, L501.6710, L100.0500, L3100.5125 #### [facility] [address] [place], [address] Free [id number] By: Redd north on 07-22-2024 Free Triiodothyronine (T3) pg/dL 2.7 pg/mL 2.18-3.98 [facility] Glomerular filtration rate ( GFR) estimationOrdered By: Redd Unger on 07-22-2024 Estimated GFR (MDRD) Non-Af Amer 87 mL/min >60 [facility] Comment on above: Non- GFR Calc Glucose measurementOrdered B y: Rded Unger on 07-22-2024 Glucose [Mass/Vol] 89 mg/dL 74-106 [facility] Hematocrit Auto (Bld) [Volum e fraction]Ordered By: Redd Unger on 07-22-2024 Hematocrit (Bld) [Volume fraction] 40.6 % 37-47 [facility] Hemoglobin measurementOrdere d By: Redd Unger on 07-22-2024 Hemoglobin (Bld) [Mass/Vol] 13.5 g/dL 12.0-15.0 [facility] Insulin [Mass/Vol]Ordered By : Redd Unger on 07-22-2024 Insulin Level 18.2 uIU/mL 2.6-24.9 [facility] Comment on above: Performed at: CB - [facility] [address] [id number] Director: Santo Laird PhD, Phone: [phone] at: BN - [facility] [address] [id number] Director: Estela Dior MD, Phone: [phone] at: ES - [facility] [address] [id number] Director: Del Santana MD, Phone: [phone] Laboratory - Chemistry and C hemistry - challengeOrdered By: Redd Unger on 07-22-2024 AST [Catalytic activity/Vol] 10 U/L Low 15-37 [facility] Luteinizing Hormoneon 2024 LH < 0.2 Normal [facility] Comment on above: Order Comment: NN Result Comment: NORMAL REFERENCE RANGES FEMALE FOLLICULAR 1.9 - 26.2 mIU/mL MID-CYCLE PEAK 22.8 - 76.1 mIU/mL LUTEAL 0.6 - 16.6 mIU/mL POST-MENOPAUSAL ON MHT 1.1 - 52.4 mIU/mL NOT ON MHT 8.6 - 61.8 mIU/mL MALE 1.2 - 10.6 mIU/mL Performed By: #### L 3300.3500, L3100.7870, L509.6001 #### [facility] [address] [place], [address] Luteinizing hormone measurem entOrdered By: Redd Unger on 07-22-2024 Luteinizing Hormone < 0.2 mIU/mL [facility] Comment on above: NORMAL REFERENCE [...] (RBC) [Entitic vol] 87.7 fL 81-99 [facility] Mean corpuscular hemoglobin (MCH) determinationOrdered By: Redd Unger on 07-22-2024 MCH (RBC) [Entitic mass] 29.2 pg 27.0-32.0 [facility] Mean corpuscular hemoglobin concentration (MCHC) determinationOrdered By: Redd Unger on 07-22-2024 MCHC (RBC) [Mass/Vol] 33.3 g/dL 32-36 [facility] Mean platelet volume determi nationOrdered By: Redd Unger on 07-22-2024 Platelet mean volume (Bld) [Entitic vol] 12.9 fL High 6.2-12.0 [facility] Platelet countOrdered By: St toni Unger on 07-22-2024 Platelets (Bld) [#/Vol] 247 10*3/uL 150-450 [facility] Potassium measurementOrdered By: Redd Unger on 07-22-2024 Potassium [Moles/Vol] 3.8 mmol/L 3.5-5.1 [facility] Procalcitoninon 07-22-2024 Procalcitonin < 0.01 Normal 0.00-0.09 [facility] Comment on above: Result Comment: A procalcitonin [...] obtained. Performed By: #### L 3100.5170, L803.3000, L501.71471, L3100.5310, L509.7000, L500.4050, L3300.3500, L509.6000, L501.9520, L501.9310, L3300.1500, L501.6710, L100.0500, L3100.5125 #### [facility] [address] [place], [place], [address] Procalcitonin [Mass/Vol]Orde red By: Redd Unger on 07-22-2024 Procalcitonin < 0.01 ng/mL 0.00-0.09 [facility] Comment on above: A procalcitonin (PCT ) [...] 07-22-2024 RBC (Bld) [#/Vol] 4.63 10*6/uL 4.2-5.4 [facility] Serum anion gap measurementO rdered By: Redd Unger 07-22-2024 Anion gap [Moles/Vol] 5 mmol/L 5-15 [facility] Serum globulin measurementOr dered By: Redd Unger 07-22-2024 Globulin (S) [Mass/Vol] 3.7 g/dL 2.2-4.2 [facility] Serum or plasma alanine tatum otransferase (ALT) measurementOrdered By: Redd Unger 07-22-2024 ALT [Catalytic activity/Vol] 13 U/L 13-56 [facility] Serum or plasma albumin shelly urement (mass/volume)Ordered By: Redd Unger 07-22-2024 Albumin [Mass/Vol] 3.4 g/dL 3.2-5.0 [facility] Serum or plasma alkaline norma sphatase measurementOrdered By: Redd Unger 07-22-2024 ALP [Catalytic activity/Vol] 68 U/L 45-117 [facility] Serum or plasma calcium shelly urement (mass/volume)Ordered By: Redd Unger 07-22-2024 Calcium [Mass/Vol] 8.9 mg/dL 8.5-10.1 [facility] Serum or plasma creatinine m easurement (mass/volume)Ordered By: Redd Unger on 07-22-2024 Creatinine [Mass/Vol] 0.81 mg/dL 0.55-1.02 [facility] Comment on above: The validity of the calculated GFR & GFRAA in patients over 70 years has not been determined. Clinical correlation is essential. Serum or plasma thyroxine (T 4) measurement (mass/volume)Ordered By: Redd Unger on 07-22-2024 T4 [Mass/Vol] 15.5 ug/dL High 4.8-13.9 [facility] Serum or plasma urea nitroge n measurement (mass/volume)Ordered By: Redd Unger on 07-22-2024 Urea nitrogen [Mass/Vol] 13 mg/dL 7-18 [facility] Sodium levelOrdered By: Jian Unger on 07-22-2024 Sodium [Moles/Vol] 139 mmol/L 136-145 [facility] T4 Total, Thyroxinon 025 T4 [Mass/Vol] 15.5 ug/dL High 4.8-13.9 [facility] Comment on above: Order Comment: N N Performed By: #### L 3100.5170, L803.3000, L501.89334, L3100.5310, L509.7000, L500.4050, L3300.3500, L509.6000, L501.9520, L501.9310, L3300.1500, L501.6710, L100.0500, L3100.5125 #### [facility] [address] [facility] [place], [address] TSH QnOrdered By: Redd dickson on 07-22-2024 Thyroid Stimulating Hormone (TSH) 2.510 uIU/mL 0.358-3.740 [facility] Testosterone Free [Mass/Vol] Ordered By: Redd Unger on 07-22-2024 Free Testosterone 0.11 ng/dL 0.10-0.85 [facility] Testosterone Free/Testostero ne.total [Mass fraction]Ordered By: Redd Unger on 01-17-2025 Percent Free Testosterone 1.34 % 0.50-2.80 [facility] Testosterone, totalOrdered B y: Redd Ute on 07-22-2024 Testosterone [Mass/Vol] 8 ng/dL 8-60 [facility] Thyroid Stim Hormone (TSH)on 07-22-2024 TSH 2.510 uIU/mL Normal 0.358-3.740 [facility] Comment on above: Order Comment: NN Performed By: #### L 3300.3500, L3100.7870, L509.6001 #### [facility] [address] [place], [address] Total proteinOrdered By: Lico theodore Ute on 07-22-2024 Protein [Mass/Vol] 7.1 g/dL 6.4-8.2 [facility] White blood cell (WBC) count Ordered By: Redd Unger on 07-22-2024 WBC (Bld) [#/Vol] 6.4 10*3/uL 4.4-11.0 [facility] Basophil percentageOrdered B y: Niru Kemp on 09-25-2023 Cholesterol [Mass/Vol] 194 mg/dL <200 [facility] Comment on above: <200 mg/dL Desirable 200-240 mg/dL Borderline >240 mg/dL High Risk Triglyceride [Mass/Vol] 127 mg/dL <199 [facility] Comment on above: The drugs N-Acetylcy steine and Metamizole may falsely depress this assay.Serum Triglycerides Reference Interval Normal <150 mg/dL Borderline high 150 - 199 mg/dL High 200 - 499 mg/dL Very High > or = 500 mg/dL Laboratory - Chemistry and C hemistry - challengeOrdered By: Niru Kemp on 09-25-2023 Cholesterol in HDL [Mass/Vol] 50 mg/dL >40 [facility] Comment on above: The drugs N-Acetylcy steine and Metamizole may falsely depress this assay. Reference Range HDL <40 mg/dL Low HDL Cholesterol HDL >or= 60 mg/dL High HDL Cholesterol Cholesterol in LDL [Mass/Vol] 119 mg/dL 0-130 [facility] No Panel InformationOrdered By: Niru Kemp on 09-25-2023 VLDL Cholesterol 25 mg/dL 5-40 [facility] Serum or plasma thyroid stim ulating hormone (TSH) measurement (units/volume)Ordered By: Niru Kemp on 09-25-2023 TSH Qn 2.56 uIU/mL 0.358-3.74 [facility] Laboratory - Chemistry and C hemistry - challengeOrdered By: Dr. Kemp on 08-01-2022 Free T4 [Mass/Vol] 1.09 ng/dL 0.76-1.46 [facility] No Panel InformationOrdered By: Dr. Kemp on 08-01-2022 Thyroid Stimulating Hormone (TSH) 1.52 uIU/mL 0.358-3.74 [facility] CNPNon 07-24-2021 ALISIA Telephone (MADINAWA) -- AVELINO ANTON ([id number]) 1990 F Date Time Provider Department 07/24/21 [...] Date Reviewed: 07/23/2021 Reviewed by: Latanya Matute APRN.SHORT ORDER COOK - Fully Assessed Reason for Visit: Results [...] GERD (gastroesophageal reflux disease) [K21.9] 10/08/2011 Contraception [[id number]] 10/08/2011 Spotting in [O26.859] 06/03/2018 Encounter Status:Closed by CARMELLA FERNANDEZ LPN on 07/26/21 [facility] CNOVon 07-23-2021 CNOV Office Visit (HARIS ) -- JAYLIN ANTONITLYN Deepthi ([id number]) 1990 F Date Time Provider Department 07/23/21 10:50 AM LATANYA MATUTE During your visit today, we recorded the following information about you: Temperature Pulse Respiration Blood pressure 98.5 degrees 94/minute 16/minute 111/75 Weight 95.7 kg Latanya Matute APRN.SHORT ORDER COOK 07/23/2021 11:29 AM Signed This note was created using NoteWriter. Subjective [...] rest - Covid test ordered/pending Latanya Matute APRN.SHORT ORDER COOK Medical Decision Making: Problems: Moderate: New problem [...] sinus pa (more content not included)... Normal [facility] COVID w FLU A+B Routon 07-23 Influenza A PCR Negative Normal [facility] Comment on above: Performed By: #### C OVFLU #### [place] [address] Influenza B PCR Negative Normal [facility] Comment on above: Performed By: #### C OVFLU #### [place] [address] SARS-CoV-2 (COVID-19) RNA LILLIANA+probe Ql (Unsp spec) UPPER RESPIRATORY TRACT SWAB Normal [facility] Comment on above: Performed By: #### C OVFLU #### [place] [address] SARS-CoV-2 (COVID-19) RNA LILLIANA+probe Ql (Unsp spec) Negative for COVID19 (SARS CoV2) by RT-PCR or equivalent method. Normal Negative for COVID19 (SARS CoV2) by RT-PCR or equivalent method. [facility] Comment on above: Result Comment: This test was developed and its performance characteristics determined by [facility] [place]. This test has been authorized by FDA under an Emergency Use Authorization (EUA). This test has been validated in accordance with the FDA's Guidance Document Policy for Diagnostics Testing in Laboratories Certified to Perform High Complexity Testing under CLIA prior to Emergency use Authorization for Coronavirus Disease 2019 during the Public Health Emergency issued on September 03, 2019. Test performed by [facility], [facility] [place], [address] [place] [address]. Performed By: #### C OVFLU #### [place] [address] Vital Signs Date Time Vital Sign Value Performing Clinician Facility 12-29-2022 09:55-0400 Body height 170.[address] Niru Kemp Work Phone: [facility] 12-29-2022 09:54-0400 Body mass index (BMI) [Ratio] 34.9 kg/m2 Dr. Niru Kemp Work Phone: [facility] 12-29-2022 09:54-0400 Body weight 101.[address] Niru Kemp Work Phone: [facility] 12-29-2022 09:54-0400 Diastolic blood pressure 82 mm[Hg] Dr. Niru Kemp Work Phone: [facility] 12-29-2022 09:54-0400 Systolic blood pressure 132 mm[Hg] Dr. Niru Kemp Work Phone: [facility] 07-23-2022 11:10-0500 Body height 170.[address] Niru Kemp Work Phone: [facility] 07-23-2022 11:03-0500 Body mass index (BMI) [Ratio] 34.2 kg/m2 Dr. Niru Kemp Work Phone: [facility] 07-23-2022 11:03-0500 Body weight 98.[address] Niru Kemp Work Phone: [facility] 07-23-2022 11:03-0500 Diastolic blood pressure 84 mm[Hg] Dr. Niru Kemp Work Phone: [facility] 07-23-2022 11:03-0500 Systolic blood pressure 128 mm[Hg] Dr. Niru Kemp Work Phone: [facility] 11-30-2021 22:15-0400 Body height 167.6 cm Alexys Osorio MD Work Phone: [facility] 11-30-2021 22:15-0400 Body mass index (BMI) [Ratio] 25.82 kg/m2 Alexys Osorio MD Work Phone: [facility] 11-30-2021 22:15-0400 Body temperature 98.29 [degF] Alexys Osorio MD Work Phone: [facility] 11-30-2021 22:15-0400 Body weight 72.58 kg Alexys Osorio MD Work Phone: [facility] 11-30-2021 22:15-0400 Diastolic blood pressure 97 mm[Hg] Alexys Osorio MD Work Phone: [facility] 11-30-2021 22:15-0400 Heart rate 106 /min Alexys Osorio MD Work Phone: [facility] 11-30-2021 22:15-0400 Respiratory rate 12 /min Alexys Osorio MD Work Phone: [facility] 11-30-2021 22:15-0400 SaO2% (BldA) [Mass fraction] 98 % Alexys Osorio MD Work Phone: [facility] 11-30-2021 22:15-0400 Systolic blood pressure 145 mm[Hg] Alexys Osorio MD Work Phone: [facility] Encounters Encounter Date Encounter Type Care Provider Facility Start: 06-06-2025 ambulatory [facility] Facility: [facility] Start: 02-11-2025 End: 02-11-[address] Niru Kemp MD Work Phone: -Laboratory Start: 02-11-2025 End: 02-11-[address] Redd Unger MD -Laboratory Work Phone: Start: 02-11-2025 End: 02-11-2025 ambulatory Redd Unger Facility:[facility] Start: 09-24-2024 End: 09-24-[address] Niru Kemp MD Work Phone: [facility] Work Phone: Start: 09-24-2024 End: 09-24-[address] Redd Unger MD -Laboratory Work Phone: Start: 09-24-2024 End: 09-24-2024 ambulatory Redd Unger Facility:[facility] Start: 07-22-2024 End: 07-22-[address] Redd Unger MD -Laboratory Work Phone: Start: 07-22-2024 End: 07-22-2024 ambulatory [facility] Facility:[facility] Start: 09-25-2023 End: 09-25-2023 ambulatory [facility] Work Phone: Start: 09-25-2023 End: 09-25-2023 Patient encounter procedure [facility] Work Phone: Start: 12-29-2022 End: 12-29-[address] Niru Kemp Work Phone: [facility] Work Phone: Start: 12-29-2022 End: 12-29-[address] [facility] Work Phone: Start: 12-29-2022 End: 12-29-[address] Niru Kemp Work Phone: [facility] Work Phone: Start: 08-06-2022 End: 08-06-[address] Niru Kemp Work Phone: [facility] Work Phone: Start: 08-06-2022 End: 08-06-[address] Niru Kemp Work Phone: [facility] Start: 08-01-2022 End: 08-01-[address] Niru Kemp Work Phone: [facility] Work Phone: Start: 08-01-2022 End: 08-01-[address] Niru Kemp Work Phone: [facility] Start: 07-23-2022 End: 07-23-[address] Niru Kemp Work Phone: [facility] Start: 11-30-2021 End: 11-30-2021 Emergency department patient visit Alexys Osorio MD Work Phone: [facility] Comment on above: Herpes simplex vulvo vaginitis (Primary Dx) Procedures Date Procedure Procedure Detail Performing Clinician Start: 08-06-[address] Kiran Kemp Work Phone: Start: 08-06-[address] Niru Kemp Work Phone: Plan of Treatment Date Care Activity Detail Author Start: 12-29-2022 Liquid based cervica l cytology screening [facility] Start: 03-06-2022 Influenza vaccination Flu vacc ine (Season Ended) [facility] Start: 12-19-2015 DTaP/Tdap/Td vaccine (7 - Td or Tdap) DTaP/Tdap/Td vaccine (7 - Td or Tdap) [facility] Start: 1997 COVID-19 Vaccine (1) COVID-19 Vaccin e (1) [facility] Path report.final Dx Spec [facility] Payers Date Payer Category Payer Self-pay [id number] 2024 Unknown [id number] 2003 Unknown [id number] Unknown [id number] Unknown [id number] Unknown [id number] Unknown [id number] Social History Date Type Detail Facility Start: 07-23-2022 End: 11-01-2023 Tobacco smoking status NMIS Tobacco smoking consumption unknown [facility] Start: 1990 Sex Assigned At Not on file S [facility] Work Phone: Start: 11-20-2021 End: 12-01-2021 Exposure to SARS-CoV-2 (event) Not sure [facility] Work Phone: Start: 1990 Sex Assigned At Female [facility] Start: 03-04-2024 Tobacco smoking status NMIS Never smoked tobacco (finding) [facility] Start: 09-30-2024 Sex Female (finding) [facility] Hospital Discharge instructions 11-30-2021 InstructionsAttachments Note Date & Type Note Facility 11-30-2021 Hospital Discharg e instructions Alexys Osorio MD - 11/30/2021 Please return to the Emergency Department immediately for new or worsening symptoms or any new concerns. Please follow-up with [your primary care doctor] within the next [3-5] days. The following attachments cannot be sent through Care Everywhere.Genital Herpes (Maori)documented in this encounter [facility] Work Phone: Progress note 07-23-2021 Note Date & Type Note Facility 07-23-2021 Note HNO ID: [id number] Author: Latanya Matute APRN.SHORT ORDER COOK Service: ? Author Type: Nurse Practitioner Type: Progress Notes Filed: 07/23/2021 11:29 AM Note Text: This note was created using [id number] filmsriter. Subjective Avelino Anton is a 30 year [...] or treatment of novel coronavirus infection (COVID-19). [facility] Evaluation note Note Date & Type Note Facility Evaluation note Diagnosis Herpes simplex vulvovaginitis- Primary documented in this encounter [facility] Work Phone: Evaluation note Note Date & Type Note Facility Evaluation note Diagnosis Onset Date Abnormal uterine bleeding (AUB) acute Premature ovarian failure ch ronic [facility] Work Phone: Evaluation note Note Date & Type Note Facility Evaluation note Diagnosis Onset Date Encounter for routine gyneco logical examination noneactive [facility] Work Phone: Evaluation note Note Date & Type Note Facility Evaluation note No assessment information availa ble [facility] Work Phone: Reason for referral (narrative) Note Date & Type Note Facility Reason for referral (narrative) No reason for referral information available [facility] Work Phone: Summary Purpose Family History No Family History Records Found Relationship Condition Age at Onset Recorded Date/T [...] (AUB) Premature ovarian failure 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 Niru Kemp MD Primary Care Provider Active Brenna Figueroa FLASH WELDING MACHINE OPERATOR, FLASH WELDING MACHINE OPERATOR-C Attending Provider Active Team Status: Inactive Member Role Status Dates Dr. Niru Kemp MD Primary Care Provider, Attendin g Provider Active Team Status: Inactive Member Role Status Dates Dr. Niru Kemp MD Primary Care Provider Active Brenna Figueroa FLASH WELDING MACHINE OPERATOR, FLASH WELDING MACHINE OPERATOR-C Attending Provider Active Team Status: Inactive Member [...] September 24, 2024 End: September 24, 2024 Team Status: Active Member Role/Relationship Status Dates Dr. Niru Kemp MD Family Provider Active Dr. Niru Kemp MD Primary Care Provider Active Team Status: Inactive Member Role/Relationship Status Dates Dr. Niru Kemp MD Primary Care Provider Active Start: February 11, 2025 End: February 11, 2025 Dr. Redd Unger MD Attending Provider Active Start: February 11, 2025 End: February 11, 2025 Dr. Redd Unger MD Referring Provider Active Start: February 11, 2025 End: February 11, 2025 Goals (unrecognized section and content) Goals may [...] BE BASED ON THE PRIMARY CLINICAL RECORDS. [employer] [facility]. provides no warranty or guarantee of the accuracy or completeness of information in this document.
[2025-06-03 10:53] LABS: Hematocrit 41.3 % (37-47); Hemoglobin 13.6 g/dL (12.0-15.0); Mean Corp Hgb Conc 32.9 g/dL (32-36); Mean Corpuscular Volume 87.9 fL (81-99); Mean Platelet Vol. 12.4 fl (6.2-12.0); Platelet Count 278 K/mm3 (150-450); RBC Distribution Width CV 12.4 % (11.6-14.6); RBC Distribution Width SD 40.0 fl (35.1-43.9); Red Blood Count 4.70 M/mm3 (4.2-5.4); White Blood Count 8.1 K/mm3 (4.4-11.0)
[2025-06-03 11:17] LABS: AST(SGOT) 18 U/L (<=31); Alanine Aminotransfer ALT/SGPT 17 U/L (<=34); Albumin, Serum 4.3 g/dL (3.5-5.0); Alkaline Phosphatase 58 U/L (35-104); Anion Gap 11 (5-15); BUN 13 mg/dL (4-19); BUN/Creat Ratio 15.5 RATIO (10-20); Calcium,Total 9.3 mg/dL (7.6-11.0); Carbon Dioxide 21.7 mmol/L (21.0-32.0); Chloride 107 mmol/L (98-108); Globulin 2.8 g/dL (2.2-4.2); Glucose 94 mg/dL (70-99); Potassium 4.3 mmol/L (3.3-5.1)
[2025-06-03 11:24] LABS: CORTISOL AM 16.30 ug/dL (6.02-18.40); Free T3 3.3 pg/mL (2.18-3.98); T4 Total, Thyroxin 10.7 ug/dL (4.8-13.9); Vitamin D,25 Hydroxy 38.3 ng/mL (30-100)
[2025-06-04 07:07] LABS: CRP, High Sensitivity 3.66 mg/L (0.00-3.00)
== END | disposition home or self-care (01) ==
LOC: LAB 09:40
PROVIDERS: PCP Family Medicine; Referring Provider Obstetrics & Gynecology Reproductive Endocrinology; Visit Provider Obstetrics & Gynecology Reproductive Endocrinology
DX: E88.810 Metabolic syndrome (principal)
CPT/HCPCS: 36415; 80053; 82306; 82533; 82627; 83525; 84402; 84436; 84443; 84481; 85027; 86141; 82626

== ENCOUNTER → 2025-06-06 | Outpatient (CLI) | payer OTHER, SELFPAY ==
[2025-06-09 11:09] LABS: HPV APTIMA, High Risk Negative (Negative)
== END | disposition home or self-care (01) ==
LOC: LABSPEC 16:12
PROVIDERS: PCP Family Medicine; Visit Provider Obstetrics & Gynecology
DX: Z12.4 Encounter for screening for malignant neoplasm of cervix (principal)
CPT/HCPCS: 87624; 88175; G0145